=== PATIENT | male | born 1945 | race Caucasian/White ===

== ENCOUNTER → 2018-07-30 | Outpatient (CLI) | payer MEDICARE, OTHER ==
[~2018-07-30] MED LIST: AMLO5TAB2 PO; ASP325T; ASP81CT PO; ATRV10T PO; CARV12.52 PO; CARV3.122; CLOP75TA PO; FURO40TA4 PO; KCL20TCR PO; LISI-594; NITR1PAT25; OMEG-12 PO; RAMI10TA PO; TADA2.5T PO
== END ==
LOC: CARD 10:36
PROVIDERS: ATTEND Internal Medicine Cardiovascular Disease
DX: I25.10 Atherosclerotic heart disease of native coronary artery without angina pectoris (principal); I11.0 Hypertensive heart disease with heart failure; I50.22 Chronic systolic (congestive) heart failure; I65.29 Occlusion and stenosis of unspecified carotid artery; E78.2 Mixed hyperlipidemia

== ENCOUNTER → 2018-08-06 | Outpatient (CLI) | payer MEDICARE, OTHER ==
[~2018-08-06] MED LIST changes: +CATHETER FLUSH 10 ML SYR IV PRN; +REGADENOSON 0.4 MG/5 ML SYR (LEXISCAN) IV ONE
[2018-08-06 09:59] VITALS: BP 159/97
--- NOTE | 2018-08-06 15:29 | STRESS TEST ---
DATE OF SERVICE: 08/06/2018 LEXISCAN MYOVIEW STRESS TEST REPORT Baseline heart rate is 63. Baseline blood pressure 168/89. Baseline EKG is sinus rhythm with no ischemic changes. In summary, the patient was injected with 8.56 mCi of technetium-99 Myoview and the resting images were obtained. Then, the patient was injected with 0.4 mg of Lexiscan followed by 26.7 mCi of technetium-99 Myoview. Throughout the test, there were no EKG changes. The resting and stress images were reviewed and compared in the short axis, horizontal long axis, and vertical long axis views. Review of the images showed diaphragmatic attenuation affecting the quality of the images. There is a fixed defect involving the mid to apical inferolateral and anterolateral wall with no significant ischemia. SSS is 7, SDS 1, TID value 1.0. On the gated images, the left ventricle appeared to be normal size with hypokinesia at the anterior wall and anteroseptum and inferoseptum probably due to the underlying bundle branch block. Calculated ejection fraction is 48%. CONCLUSION: 1. The patient tolerated Lexiscan well. 2. Extracardiac attenuation affecting the quality of the images with fixed defect involving the mid to apical inferolateral and anterolateral wall. 3. Normal left ventricular size with hypokinesia involving the anterior wall, anteroseptum and inferoseptum probably due to the underlying bundle branch block. Calculated ejection fraction is 48%. Job ID: [id number] DocumentID: [id number] Dictated Date: 08/06/2018 14:51:09 Checkman Date: 08/06/2018 15:28:53 Dictated By: JOSÉ LUIS FARR MD
== END ==
LOC: CARD 08:10
PROVIDERS: ATTEND Internal Medicine Cardiovascular Disease
DX: I11.0 Hypertensive heart disease with heart failure (principal); I50.9 Heart failure, unspecified; I25.10 Atherosclerotic heart disease of native coronary artery without angina pectoris; E78.2 Mixed hyperlipidemia
CPT/HCPCS: 78452; 93017

== ENCOUNTER → 2019-10-09 | Outpatient (CLI) | payer MEDICARE, OTHER ==
[~2019-10-09] MED LIST changes: -CATHETER FLUSH 10 ML SYR IV PRN; -REGADENOSON 0.4 MG/5 ML SYR (LEXISCAN) IV ONE
== END ==
LOC: CARD 13:07
PROVIDERS: ATTEND Physician Assistant
DX: I08.3 Combined rheumatic disorders of mitral, aortic and tricuspid valves (principal); I11.0 Hypertensive heart disease with heart failure; I50.22 Chronic systolic (congestive) heart failure; I25.10 Atherosclerotic heart disease of native coronary artery without angina pectoris; I65.23 Occlusion and stenosis of bilateral carotid arteries; E78.2 Mixed hyperlipidemia; Z95.2 Presence of prosthetic heart valve
CPT/HCPCS: 93306

== ENCOUNTER → 2020-10-24 | Outpatient (CLI) | payer MEDICARE, OTHER | LOC: CARD 10:32 | PROVIDERS: ATTEND Internal Medicine Cardiovascular Disease | DX: I25.10 Atherosclerotic heart disease of native coronary artery without angina pectoris (principal); I50.9 Heart failure, unspecified; I08.1 Rheumatic disorders of both mitral and tricuspid valves | CPT/HCPCS: 93306 ==

== ENCOUNTER → 2020-10-26 | Outpatient (CLI) | payer MEDICARE, OTHER ==
[~2020-10-26] VITALS: Ht 177 cm; Wt 98.0 kg
[~2020-10-26] MED LIST changes: +CATHETER FLUSH 10 ML SYR IV PRN; +REGADENOSON 0.4 MG/5 ML SYR (LEXISCAN) IV ONE
[2020-10-26 08:56] VITALS: BP 167/89
--- NOTE | 2020-10-26 12:49 | Cardiology Stress Test Report ---
Stress Test Report Date of Procedure/Referring: Date of Procedure: Oct 26, 2020 PCP José Luis Marquez MD Admitting Physician Deleted Indications: Heart disease Baseline Heart Rate: 66 Baseline Blood Pressure: Blood Pressure Systolic: 167 Blood Pressure Diastolic: 89 Baseline Vitals Vital Signs Date Time Temp Pulse Resp B/P (MAP) Pulse Ox O2 Delivery O2 Flow Rate FiO2 10/26/20 08:56 67 19 167/89 (115) 97 Baseline EKG: Baseline EKG: normal sinus rhythm. Summary After explaining the procedure to the patient, he signed a consent and then brought to the stress nuclear laboratory. Patient received 0.4 mg Lexiscan for stress test, ECG, heart rate and blood pressure were monitored continuously. Resting and stress dose of radio tracer were injected, imaging was acquired and reviewed in short axis, horizontal long axis and vertical long axis views. TID: 1.04 SSS: 9 SDS: 7 EF: 33 1. Patient tolerated Lexiscan well 2. Diaphragmatic attenuation with reversible ischemia involving the whole inferior wall and inferolateral wall and lateral wall 3. Normal left ventricular size, diffuse hypokinesia is 33 percent JOSÉ LUIS MARQUEZ MD Oct 26, 2020 12:49
== END ==
LOC: CARD 07:30
PROVIDERS: ATTEND Internal Medicine Cardiovascular Disease
DX: I25.10 Atherosclerotic heart disease of native coronary artery without angina pectoris (principal); I50.9 Heart failure, unspecified
CPT/HCPCS: 78452; 93017; A9502

== ENCOUNTER 2021-12-28 08:01 | Outpatient (CLI) | payer MEDICARE ==
[~2021-12-28] VITALS: Ht 180.3 cm; Wt 95.5 kg
[~2021-12-28 08:01] MED LIST changes: -CATHETER FLUSH 10 ML SYR IV PRN; -REGADENOSON 0.4 MG/5 ML SYR (LEXISCAN) IV ONE
[2022-01-02] MEDS ORDERED: VITA1CAP PO (15:27)
[2022-01-02] MEDS ORDERED: ATOR10TA66 PO (15:29)
[2022-01-02] MEDS ORDERED: RAMI10CA69 PO (15:29)
[2022-01-02] MEDS ORDERED: CLOP75TA69 PO (15:29)
[2022-01-02] MEDS ORDERED: CARV12.53 PO (15:29)
== END 2022-01-02 15:36 | disposition home or self-care (01) ==
LOC: PREOP 08:01
PROVIDERS: ATTEND Specialist
DX: Z01.818 Encounter for other preprocedural examination (principal)

== ENCOUNTER → 2022-01-11 | Outpatient (CLI) | payer MEDICARE ==
[~2022-01-11] MED LIST changes: +ATOR10TA66 PO; +CARV12.53 PO; +CLOP75TA69 PO; +RAMI10CA69 PO; +VITA1CAP PO
== END | disposition home or self-care (01) ==
LOC: PREOP 07:51
PROVIDERS: ATTEND Specialist
DX: Z01.818 Encounter for other preprocedural examination (principal)

== ENCOUNTER 2022-01-19 12:55 | Day surgery (SDC) | payer MEDICARE ==
[~2022-01-19] VITALS: Ht 180.3 cm; Wt 95.5 kg
[2022-01-19] MEDS ORDERED: LIDOCAINE PF 1% 2 ML VIAL IR PRN (13:00)
[2022-01-19] MEDS ORDERED: POVIDONE (BETADINE) OPHTH SOLN 5% 30 ML OP ONE (13:00)
[2022-01-19] MEDS ORDERED: MOXIFLOXACIN OPHTH SOLN 5 MG/ML 0.3 ML SYRINGE OP ONE (13:00)
[2022-01-19] MEDS ORDERED: TIMOLOL MALEATE 0.5% 5 ML (TIMOPTIC) BTL OU PRN (13:00)
[2022-01-19] MEDS: TETRACAINE 0.5% OPHTH SOLN 4 ML BTL (SINGLE DOSE ONLY) OU PRN ×4 (13:13→13:30)
[2022-01-19] MEDS: TROPICAMIDE 1% OPH SOLN (MYDRIACYL) 15 ML BTL OP SCH ×3 (13:19→13:30)
[2022-01-19] MEDS: PHENYLEPHRINE 10% OPHTH (NEO-SYN) 5 ML BTL OU SCH ×3 (13:20→13:30)
[2022-01-19 13:21] VITALS: BP 147/78
[2022-01-19] MEDS ORDERED: MIDAZOLAM 2 MG/2 ML (VERSED) VIAL ONE (13:33)
--- NOTE | 2022-01-19 13:53 | Ophthalmologist Pre-Op Note ---
Pre-Operative Progress Note H&P Reviewed The H&P was reviewed, patient examined and no changes noted. Date H&P Reviewed: Jan 19, 2022 Time H&P Reviewed: 13:53 Pre-Op Dx Cataract, Left Eye MARGE ROSENBERG MD Jan 19, 2022 13:53
--- NOTE | 2022-01-19 14:14 | Ophthalmology Operative Report ---
Cataract removal/placement IOL PREOPERATIVE DIAGNOSIS: Cataract Left Eye POSTOPERATIVE DIAGNOSIS: Cataract Left Eye PROCEDURE: Cataract removal and placement of posterior chamber implant, left eye SURGEON: Vu Rosenberg ANESTHESIA: Topical with sedation COMPLICATIONS: None ESTIMATED BLOOD LOSS: Minimal DESCRIPTION OF PROCEDURE: After proper informed consent was obtained, the patient, a 76 male, was taken to the Operating Room and the left eye was anesthetized with tetracaine. The left eye was then prepped and draped in the usual manner. A wire lid speculum was placed. A paracentesis was made at the left hand position. Preservative free lidocaine was injected into the anterior chamber followed by viscoelastic. A clear corneal incision was made in the temporal position. A capsulorrhexis was preformed and the central nuclear and cortical material were removed. The posterior capsule was polished and an Alonso 21.0 AU00T0 was placed into the capsular bag. The residual viscoelastic was aspirated and balanced saline solution was injected into the anterior chamber. Moxifloxacin was injected into the anterior chamber. The wound was checked and found to be water tight. The patient tolerated the procedure well without complications. VU ROSENBERG MD Jan 19, 2022 14:13
[2022-01-19 14:16] VITALS: BP 147/78
--- NOTE | 2022-01-19 14:17 | Anesthesia-General Post-Op ---
MAC Patient Condition Mental Status/LOC: Same as Preop Cardiovascular: Satisfactory Nausea/Vomiting: Absent Respiratory: Satisfactory Pain: Controlled Complications: Absent Post Op Complications Complications None Follow Up Care/Instructions Patient Instructions None needed. Anesthesiology Discharge Order Discharge Order Patient is doing well, no complaints, stable vital signs, no apparent adverse anesthesia problems. No complications reported per nursing. DAVID BOSE CRNA Jan 19, 2022 14:17
[2022-01-19] MEDS ORDERED: acetaZOLAMIDE ER 500 MG CAP (DIAMOX SEQUELS) PO ONE (14:30)
== END 2022-01-19 14:18 | disposition home or self-care (01) ==
LOC: SDC 12:55
PROVIDERS: ATTEND Specialist
DX: H25.9 Unspecified age-related cataract (principal)
CPT/HCPCS: 66984; V2632

== ENCOUNTER 2023-01-06 00:05 | Inpatient (IN) | payer MEDICARE ==
[~2023-01-06] VITALS: Ht 180.3 cm; Wt 74.3 kg
[~2023-01-06 00:05] MED LIST changes: +CLOP-31 PO; -CLOP75TA69 PO
[2023-01-06] MEDS ORDERED: ONDANSETRON 4 MG/2 ML (SDV) Z0FRAN IV PRN (23:00)
[2023-01-06] MEDS ORDERED: ACETAMINOPHEN 325 MG TABLET PO PRN (23:00)
[2023-01-06] MEDS ORDERED: MEROPENEM 500 MG in NS (IVPB) 100 ML IV SCH (23:00)
[2023-01-06] MEDS ORDERED: polyethylene glycoL POWDER 17 GM (MIRALAX) PACK PO PRN (23:00)
[2023-01-06] MEDS ORDERED: ANTACID SUSP 30 ML UDC (MYLANTA) PO PRN (23:00)
[2023-01-06] MEDS ORDERED: MELATONIN 3 MG TABLET PO PRN (23:00)
[2023-01-06] MEDS ORDERED: CALCIUM CARBONATE 500 MG (TUMS) TAB.CHEW PO PRN (23:00)
[2023-01-06] MEDS ORDERED: BISACODYL 10 MG SUPP (DULCOLAX) PR PRN (23:00)
[2023-01-06] MEDS ORDERED: ENOXAPARIN 40 MG/0.4 ML (LOVENOX) SYR SC SCH (23:00)
--- OUTSIDE RECORDS SUMMARY | 2023-01-07 00:11 | XMS REPORT ---
Author Author DARIN DAHL Organization Unknown Address [address], [place] [id number] Phone Care Team Providers Care Applications Packager Name Role Phone Xwatchlist TERRI Munguia Attending BRUCE VARNER Erdoc1 Functional Status No Data Found Immunization No Data Found Mental Status No Data Found Results COMPREHENSIVE METABOLIC PANEL - Collect Date/Time: 11/27/2022 06:58 [facility] ID: [id number] [address] [place] [address], [phone] LOINC: Test Value Unit Reference Range Code Code System Flag SODIUM 136 mmol/L 134-148 POTASSIUM 3.7 mmol/L 3.5-5.3 CHLORIDE 103 mmol/L 95-114 CO2 21 mEq/L 22-33 L ANION GAP 16 6-14 H GLUCOSE 103 mg/dL 70-110 BUN 23 mg/dL 5-25 CREATININE 1.71 mg/dL 0.50-1.50 H CALCIUM 8.3 mg/dL 8.3-10.4 GLOBULIN 2.7 g/dL 2.3-3.5 ALKALINE PHOS 85 U/L 35-130 SGOT/AST 17 U/L 2-40 SGPT/ALT 17 U/L 6-45 TOTAL BILI 0.9 mg/dL 0.2-1.2 TOTAL PROTEIN 5.7 g/dL 6.0-8.3 L ALBUMIN 3.0 g/dL 3.6-5.1 L OSMOLALITY 285 280-295 EGFR 39 mL/min/1.73m2 >59 L COVID-19 RAPID - Collect Date/Time: 11/01 06:58 [facility] ID: [id number] [address], [place], [phone] LOINC: Test Value Unit Reference Range Code Code System Flag COVID 19 RAPID Negative CBC WITH AUTO DIFF - Collect Date/Time: 11/27/2022 06:58 [facility] ID: [id number] [address] [place] [address], [phone] LOINC: Test Value Unit Reference Range Code Code System Flag WBC 4.78 K/uL 4.00-11.00 RBC 4.05 M/uL 4.20-5.40 L HEMOGLOBIN 12.2 g/dL 13.1-17.3 L HEMATOCRIT 37.5 % 42.0-52.0 L MCV 92.6 fL 80.0-97.0 MCH 30.1 pg 27.0-31.2 MCHC 32.5 g/dL 32.0-36.0 PLATELETS 111 K/uL 150-400 L RDW 23.3 % 11.6-14.8 H MPV 10.8 fL 9.3-12.9 NEUT# 2.37 K/uL 2.00-6.90 Neut% 49.6 % 37.0-80.0 #LYMPH 1.50 K/uL 0.60-3.40 %LYMPH 31.4 % 10.0-50.0 #MONO 0.6 K/uL 0.0-0.9 %MONO 12.1 % 0.0-12.0 H #EOS 0.3 K/uL 0.0-0.7 %EOS 6.1 % 0.0-7.0 #BASO 0.0 K/uL 0.0-0.2 %BASO 0.60 % 0.00-2.50 IG# 0.01 0.00-0.10 IG% 0.20 0.00-0.50 CBC WITH AUTO DIFF - Collect Date/Time: 11/26/2022 07:00 [facility] ID: [id number] [address] [place] [address], [phone] LOINC: Test Value Unit Reference Range Code Code System Flag WBC 8.99 K/uL 4.00-11.00 RBC 3.94 M/uL 4.20-5.40 L HEMOGLOBIN 11.9 g/dL 13.1-17.3 L HEMATOCRIT 37.4 % 42.0-52.0 L MCV 94.9 fL 80.0-97.0 MCH 30.2 pg 27.0-31.2 MCHC 31.8 g/dL 32.0-36.0 L PLATELETS 97 K/uL 150-400 L RDW 23.6 % 11.6-14.8 H MPV 10.6 fL 9.3-12.9 NEUT# 7.34 K/uL 2.00-6.90 H Neut% 81.7 % 37.0-80.0 H #LYMPH 0.88 K/uL 0.60-3.40 %LYMPH 9.8 % 10.0-50.0 L #MONO 0.7 K/uL 0.0-0.9 %MONO 7.8 % 0.0-12.0 #EOS 0.0 K/uL 0.0-0.7 %EOS 0.3 % 0.0-7.0 #BASO 0.0 K/uL 0.0-0.2 %BASO 0.20 % 0.00-2.50 IG# 0.02 0.00-0.10 IG% 0.20 0.00-0.50 PSA TOTAL - Collect Date/Time: 07:00 [facility] ID: [id number] [address] [place] [address], [phone] LOINC: Test Value Unit Reference Range Code Code System Flag PSA TOTAL 3.6 ng/mL 0.0-4.0 COMPREHENSIVE METABOLIC PANEL - Collect Date/Time: 11/26/2022 07:00 [facility] ID: [id number] [address] [place] [address], [phone] LOINC: Test Value Unit Reference Range Code Code System Flag SODIUM 135 mmol/L 134-148 POTASSIUM 3.7 mmol/L 3.5-5.3 CHLORIDE 101 mmol/L 95-114 CO2 22 mEq/L 22-33 ANION GAP 16 6-14 H GLUCOSE 113 mg/dL 70-110 H BUN 20 mg/dL 5-25 CREATININE 1.78 mg/dL 0.50-1.50 H CALCIUM 8.5 mg/dL 8.3-10.4 GLOBULIN 2.9 g/dL 2.3-3.5 ALKALINE PHOS 88 U/L 35-130 SGOT/AST 22 U/L 2-40 SGPT/ALT 19 U/L 6-45 TOTAL BILI 1.2 mg/dL 0.2-1.2 TOTAL PROTEIN 5.9 g/dL 6.0-8.3 L ALBUMIN 3.0 g/dL 3.6-5.1 L OSMOLALITY 282 280-295 EGFR 37 mL/min/1.73m2 >59 L URINE CULTURE - Collect Date/Time: 11/25 15:21 [facility] ID: [id number] [address] [place] [address], [phone] LOINC: Test Value Unit Reference Range Code Code System Flag FINAL REPORT See Comment URINALYSIS AUTO W/ MICROSCOPIC - Collect Date/Time: 11/25/2022 15:21 [facility] ID: [id number] [address] [place] [address], [phone] LOINC: Test Value Unit Reference Range Code Code System Flag Color Red Colorless-Lt. Yellow A Appear Cloudy Clear A Glucose. Negative Negative Bilirubin Negative Negative Icto N/A Negative A Ketones Negative Negative Sp.Monroe 1.015 1.000-1.030 Blood 3+ Negative A pH 7.0 5-8.5 Protein 3+ Negative A Urobil 0.2 E.U./dL 0.2-1.0 A Nitrite Negative Negative Leukocytes 1+ Negative A U.WBC TNTC A U.RBC TNTC A Bacteria 1+ A Epithelial None A Mucus Negative A Urine Crystals None Seen Ur Casts None Seen Urine Yeast Not Present Urine Volume Sufficient Other See Comment A COMPREHENSIVE METABOLIC PANEL - Collect Date/Time: 11/24/2022 04:50 [facility] ID: [id number] [address] [place] [address], [phone] LOINC: Test Value Unit Reference Range Code Code System Flag SODIUM 137 mmol/L 134-148 POTASSIUM 3.6 mmol/L 3.5-5.3 CHLORIDE 103 mmol/L 95-114 CO2 22 mEq/L 22-33 ANION GAP 16 6-14 H GLUCOSE 100 mg/dL 70-110 BUN 20 mg/dL 5-25 CREATININE 1.76 mg/dL 0.50-1.50 H CALCIUM 8.0 mg/dL 8.3-10.4 L GLOBULIN 2.7 g/dL 2.3-3.5 ALKALINE PHOS 85 U/L 35-130 SGOT/AST 12 U/L 2-40 SGPT/ALT 14 U/L 6-45 TOTAL BILI 0.7 mg/dL 0.2-1.2 TOTAL PROTEIN 5.5 g/dL 6.0-8.3 L ALBUMIN 2.8 g/dL 3.6-5.1 L OSMOLALITY 286 280-295 EGFR 37 mL/min/1.73m2 >59 L CBC WITH AUTO DIFF - Collect Date/Time: 11/24/2022 04:50 [facility] ID: [id number] [address] [place] [address], [phone] LOINC: Test Value Unit Reference Range Code Code System Flag WBC 4.27 K/uL 4.00-11.00 RBC 3.87 M/uL 4.20-5.40 L HEMOGLOBIN 11.6 g/dL 13.1-17.3 L HEMATOCRIT 36.2 % 42.0-52.0 L MCV 93.5 fL 80.0-97.0 MCH 30.0 pg 27.0-31.2 MCHC 32.0 g/dL 32.0-36.0 PLATELETS 111 K/uL 150-400 L RDW 24.1 % 11.6-14.8 H MPV 10.9 fL 9.3-12.9 NEUT# 2.55 K/uL 2.00-6.90 Neut% 59.7 % 37.0-80.0 #LYMPH 0.99 K/uL 0.60-3.40 %LYMPH 23.2 % 10.0-50.0 #MONO 0.5 K/uL 0.0-0.9 %MONO 12.2 % 0.0-12.0 H #EOS 0.2 K/uL 0.0-0.7 %EOS 3.5 % 0.0-7.0 #BASO 0.0 K/uL 0.0-0.2 %BASO 0.90 % 0.00-2.50 IG# 0.02 0.00-0.10 IG% 0.50 0.00-0.50 COMPREHENSIVE METABOLIC PANEL - Collect Date/Time: 11/23/2022 07:00 [facility] ID: [id number] [address] [place] [address], [phone] LOINC: Test Value Unit Reference Range Code Code System Flag SODIUM 138 mmol/L 134-148 POTASSIUM 3.7 mmol/L 3.5-5.3 CHLORIDE 104 mmol/L 95-114 CO2 23 mEq/L 22-33 ANION GAP 15 6-14 H GLUCOSE 98 mg/dL 70-110 BUN 18 mg/dL 5-25 CREATININE 1.85 mg/dL 0.50-1.50 H CALCIUM 8.3 mg/dL 8.3-10.4 GLOBULIN 2.8 g/dL 2.3-3.5 ALKALINE PHOS 92 U/L 35-130 SGOT/AST 12 U/L 2-40 SGPT/ALT 14 U/L 6-45 TOTAL BILI 0.9 mg/dL 0.2-1.2 TOTAL PROTEIN 5.8 g/dL 6.0-8.3 L ALBUMIN 3.0 g/dL 3.6-5.1 L OSMOLALITY 287 280-295 EGFR 35 mL/min/1.73m2 >59 L CBC WITH AUTO DIFF - Collect Date/Time: 11/23/2022 07:00 [facility] ID: [id number] [address] [place] [address], [phone] LOINC: Test Value Unit Reference Range Code Code System Flag WBC 4.77 K/uL 4.00-11.00 RBC 3.97 M/uL 4.20-5.40 L HEMOGLOBIN 12.0 g/dL 13.1-17.3 L HEMATOCRIT 37.4 % 42.0-52.0 L MCV 94.2 fL 80.0-97.0 MCH 30.2 pg 27.0-31.2 MCHC 32.1 g/dL 32.0-36.0 PLATELETS 112 K/uL 150-400 L RDW 24.3 % 11.6-14.8 H MPV ---- 9.3-12.9 NEUT# 3.44 K/uL 2.00-6.90 Neut% 72.2 % 37.0-80.0 #LYMPH 0.75 K/uL 0.60-3.40 %LYMPH 15.7 % 10.0-50.0 #MONO 0.4 K/uL 0.0-0.9 %MONO 9.0 % 0.0-12.0 #EOS 0.1 K/uL 0.0-0.7 %EOS 2.5 % 0.0-7.0 #BASO 0.0 K/uL 0.0-0.2 %BASO 0.60 % 0.00-2.50 IG# 0.00 0.00-0.10 IG% 0.00 0.00-0.50 MYOGLOBIN - Collect Date/Time: 06:31 [facility] ID: [id number] [address] [place] [address], [id number] LOINC: Test Value Unit Reference Range Code Code System Flag Cruz 587.5 ng/ml 1.6-154.9 H CREATINE KINASE (CPK) TOTAL - Collect Da te/Time: 11/22/2022 06:31 [facility] ID: [id number] [address] [place] [address], [phone] LOINC: Test Value Unit Reference Range Code Code System Flag CPK 128 U/L 26-174 COMPREHENSIVE METABOLIC PANEL - Collect Date/Time: 11/22/2022 06:31 [facility] ID: [id number] [address] [place] [address], [phone] LOINC: Test Value Unit Reference Range Code Code System Flag SODIUM 139 mmol/L 134-148 POTASSIUM 3.6 mmol/L 3.5-5.3 CHLORIDE 108 mmol/L 95-114 CO2 20 mEq/L 22-33 L ANION GAP 15 6-14 H GLUCOSE 102 mg/dL 70-110 BUN 19 mg/dL 5-25 CREATININE 1.86 mg/dL 0.50-1.50 H CALCIUM 8.1 mg/dL 8.3-10.4 L GLOBULIN 2.5 g/dL 2.3-3.5 ALKALINE PHOS 78 U/L 35-130 SGOT/AST 13 U/L 2-40 SGPT/ALT 14 U/L 6-45 TOTAL BILI 1.0 mg/dL 0.2-1.2 TOTAL PROTEIN 5.2 g/dL 6.0-8.3 L ALBUMIN 2.7 g/dL 3.6-5.1 L OSMOLALITY 289 280-295 EGFR 35 mL/min/1.73m2 >59 L CBC WITH AUTO DIFF - Collect Date/Time: 11/22/2022 06:31 [facility] ID: [id number] [address], [place], [phone] LOINC: Test Value Unit Reference Range Code Code System Flag WBC 4.84 K/uL 4.00-11.00 RBC 3.51 M/uL 4.20-5.40 L HEMOGLOBIN 10.7 g/dL 13.1-17.3 L HEMATOCRIT 32.7 % 42.0-52.0 L MCV 93.2 fL 80.0-97.0 MCH 30.5 pg 27.0-31.2 MCHC 32.7 g/dL 32.0-36.0 PLATELETS 103 K/uL 150-400 L RDW 24.6 % 11.6-14.8 H MPV 11.4 fL 9.3-12.9 NEUT# 3.21 K/uL 2.00-6.90 Neut% 66.3 % 37.0-80.0 #LYMPH 1.00 K/uL 0.60-3.40 %LYMPH 20.7 % 10.0-50.0 #MONO 0.5 K/uL 0.0-0.9 %MONO 9.3 % 0.0-12.0 #EOS 0.2 K/uL 0.0-0.7 %EOS 3.1 % 0.0-7.0 #BASO 0.0 K/uL 0.0-0.2 %BASO 0.40 % 0.00-2.50 IG# 0.01 0.00-0.10 IG% 0.20 0.00-0.50 CREATINE KINASE (CPK) TOTAL - Collect Da te/Time: 11/21/2022 14:14 [facility] ID: [id number] [address] [place] [address], [phone] LOINC: Test Value Unit Reference Range Code Code System Flag CPK 87 U/L 26-174 LACTIC ACID - Collect Date/Time: 023 14:14 [facility] ID: [id number] [address] [place] [address], [phone] LOINC: Test Value Unit Reference Range Code Code System Flag LACTIC ACID 14.5 mg/dL 4.5-19.8 COMPREHENSIVE METABOLIC PANEL - Collect Date/Time: 11/21/2022 14:14 [facility] ID: [id number] [address] [place] [address], [id number] LOINC: Test Value Unit Reference Range Code Code System Flag SODIUM 139 mmol/L 134-148 POTASSIUM 3.5 mmol/L 3.5-5.3 CHLORIDE 110 mmol/L 95-114 CO2 19 mEq/L 22-33 L ANION GAP 14 6-14 GLUCOSE 152 mg/dL 70-110 H BUN 21 mg/dL 5-25 CREATININE 2.06 mg/dL 0.50-1.50 H CALCIUM 8.3 mg/dL 8.3-10.4 GLOBULIN 2.4 g/dL 2.3-3.5 ALKALINE PHOS 85 U/L 35-130 SGOT/AST 13 U/L 2-40 SGPT/ALT 15 U/L 6-45 TOTAL BILI 1.2 mg/dL 0.2-1.2 TOTAL PROTEIN 5.3 g/dL 6.0-8.3 L ALBUMIN 2.9 g/dL 3.6-5.1 L OSMOLALITY 293 280-295 EGFR 31 mL/min/1.73m2 >59 L BASIC METABOLIC PANEL - Collect Date/Jonathan e: 11/21/2022 05:00 [facility] ID: [id number] [address] [place] [address], [id number] LOINC: Test Value Unit Reference Range Code Code System Flag SODIUM 142 mmol/L 134-148 POTASSIUM 3.4 mmol/L 3.5-5.3 L CHLORIDE 114 mmol/L 95-114 CO2 17 mEq/L 22-33 L GLUCOSE 100 mg/dL 70-110 BUN 20 mg/dL 5-25 CREATININE 2.05 mg/dL 0.50-1.50 H OSMOLALITY 296 280-295 H CALCIUM 8.7 mg/dL 8.3-10.4 ANION GAP 14 6-14 EGFR 31 mL/min/1.73m2 >59 L BNP - Collect Date/Time: 11/21/2022 05:0 0 [facility] ID: [id number] [address] [place] [address], [phone] LOINC: Test Value Unit Reference Range Code Code System Flag BNP 3146.70 pg/ml 0.00-100.00 H CBC WITH AUTO DIFF - Collect Date/Time: 11/21/2022 05:00 [facility] ID: [id number] [address] [place] [address], [id number] LOINC: Test Value Unit Reference Range Code Code System Flag WBC 4.84 K/uL 4.00-11.00 RBC 3.64 M/uL 4.20-5.40 L HEMOGLOBIN 11.1 g/dL 13.1-17.3 L HEMATOCRIT 34.1 % 42.0-52.0 L MCV 93.7 fL 80.0-97.0 MCH 30.5 pg 27.0-31.2 MCHC 32.6 g/dL 32.0-36.0 PLATELETS 93 K/uL 150-400 L RDW 24.8 % 11.6-14.8 H MPV 10.7 fL 9.3-12.9 NEUT# 3.27 K/uL 2.00-6.90 Neut% 67.5 % 37.0-80.0 #LYMPH 0.85 K/uL 0.60-3.40 %LYMPH 17.6 % 10.0-50.0 #MONO 0.6 K/uL 0.0-0.9 %MONO 12.0 % 0.0-12.0 #EOS 0.1 K/uL 0.0-0.7 %EOS 2.3 % 0.0-7.0 #BASO 0.0 K/uL 0.0-0.2 %BASO 0.60 % 0.00-2.50 IG# 0.00 0.00-0.10 IG% 0.00 0.00-0.50 URINE CULTURE - Collect Date/Time: 11/20 19:32 [facility] ID: [id number] [address] [place] [address], [id number] LOINC: Test Value Unit Reference Range Code Code System Flag FINAL REPORT See Comment URINALYSIS AUTO W/ MICROSCOPIC - Collect Date/Time: 11/20/2022 19:32 [facility] ID: [id number] [address] [place] [address], [id number] LOINC: Test Value Unit Reference Range Code Code System Flag Color Yellow Colorless-Lt. Yellow Appear Cloudy Clear A Glucose. Negative Negative Bilirubin Negative Negative Icto N/A Negative A Ketones Negative Negative Sp.Monroe 1.015 1.000-1.030 Blood 2+ Negative A pH 5.5 5-8.5 Protein 2+ Negative A Urobil 0.2 E.U./dL 0.2-1.0 A Nitrite Negative Negative Leukocytes 3+ Negative A U.WBC TNTC A U.RBC 5-10/HPF A Bacteria 3+ A Epithelial None A Mucus Negative A Urine Crystals None Seen Ur Casts None Seen Urine Yeast Not Present Urine Volume Sufficient Other See Comment A LACTIC ACID - Collect Date/Time: 023 17:28 [facility] ID: [id number] [address], [place], [phone] LOINC: Test Value Unit Reference Range Code Code System Flag LACTIC ACID 25.6 mg/dL 4.5-19.8 H BNP - Collect Date/Time: 11/20/2022 17:2 8 [facility] ID: [id number] [address] [place] [address], [id number] 000 LOINC: Test Value Unit Reference Range Code Code System Flag BNP 2880.90 pg/ml 0.00-100.00 H EKG, TRACING ONLY - Collect Date/Time: 0 11/20/2022 16:50 [facility] ID: [id number] [address] [place] [address], [id number] LOINC: Test Value Unit Reference Range Code Code System Flag EKG Complete CARDIAC PANEL (EXP) - Collect Date/Time: 11/20/2022 16:50 [facility] ID: [id number] [address] [place] [address], [id number] LOINC: Test Value Unit Reference Range Code Code System Flag CK 159 U/L 26-174 CKMB 5.6 ng/ml 0.0-9.2 TROPONIN I 0.156 ng/mL 0.000-0.400 MYOGLOBIN 426.1 ng/ml 1.6-154.9 H CARBON MONOXIDE - Collect Date/Time: 16:50 [facility] ID: [id number] [address] [place] [address], [phone] LOINC: Test Value Unit Reference Range Code Code System Flag CARBON MONOXIDE, BLOOD 3.6 % 0.0-3.6 COMPREHENSIVE METABOLIC PANEL - Collect Date/Time: 11/20/2022 16:50 [facility] ID: [id number] [address] [place] [address], [id number] LOINC: Test Value Unit Reference Range Code Code System Flag SODIUM 140 mmol/L 134-148 POTASSIUM 3.5 mmol/L 3.5-5.3 CHLORIDE 112 mmol/L 95-114 CO2 16 mEq/L 22-33 L ANION GAP 16 6-14 H GLUCOSE 120 mg/dL 70-110 H BUN 19 mg/dL 5-25 CREATININE 2.13 mg/dL 0.50-1.50 H CALCIUM 8.9 mg/dL 8.3-10.4 GLOBULIN 3.3 g/dL 2.3-3.5 ALKALINE PHOS 101 U/L 35-130 SGOT/AST 14 U/L 2-40 SGPT/ALT 15 U/L 6-45 TOTAL BILI 2.1 mg/dL 0.2-1.2 H TOTAL PROTEIN 6.8 g/dL 6.0-8.3 ALBUMIN 3.5 g/dL 3.6-5.1 L OSMOLALITY 292 280-295 EGFR 30 mL/min/1.73m2 >59 L CBC WITH AUTO DIFF - Collect Date/Time: 11/20/2022 16:50 [facility] ID: [id number] [address] [facility], [place], [place], [phone] LOINC: Test Value Unit Reference Range Code Code System Flag WBC 5.60 K/uL 4.00-11.00 RBC 3.99 M/uL 4.20-5.40 L HEMOGLOBIN 12.0 g/dL 13.1-17.3 L HEMATOCRIT 37.2 % 42.0-52.0 L MCV 93.2 fL 80.0-97.0 MCH 30.1 pg 27.0-31.2 MCHC 32.3 g/dL 32.0-36.0 PLATELETS 124 K/uL 150-400 L RDW 25.1 % 11.6-14.8 H MPV ---- 9.3-12.9 NEUT# 4.21 K/uL 2.00-6.90 Neut% 75.2 % 37.0-80.0 #LYMPH 0.71 K/uL 0.60-3.40 %LYMPH 12.7 % 10.0-50.0 #MONO 0.6 K/uL 0.0-0.9 %MONO 10.5 % 0.0-12.0 #EOS 0.0 K/uL 0.0-0.7 %EOS 0.5 % 0.0-7.0 #BASO 0.1 K/uL 0.0-0.2 %BASO 0.90 % 0.00-2.50 IG# 0.01 0.00-0.10 IG% 0.20 0.00-0.50 ARTERIAL BLOOD GASES - Collect Date/Time : 11/20/2022 16:47 [facility] ID: [id number] [address] [place] [address], [phone] LOINC: Test Value Unit Reference Range Code Code System Flag pH 7.44 7.35-7.45 pCO2 19 mm/Hg 35-45 L pO2 95 mm/Hg 80-95 HCO3 13 mmol/L 20-31 L BASE EXCESS -11.00 mmol/L 1.80-4.20 L O2 SAT 98 RM AIR 95-100 CT CERVICAL SPINE W/O CONTRAST - Complet ed: 11/20/2022 18:14 LOINC: 59480-0 \DRAo\\PGNo\\MRB2\ [address] [address] ---------NAME--------- NUM VIJAYA SEX AGE ADMIT DISC. XRAY# F/C TYPE MARYLIN Mcnally [id number] M 77 11/20/22 39051 M5 I/P DATE OF : 1945 M/R# [id number] PH#: [phone] 110-1 LOCATION: TRANSCRIBED: 11/21/22 9:[address] CERVICAL SPINE W/O [id number] COMPLETED:11/20/22 18:14 SKS 26915 {SPINE PROCED REASON: Trauma PHYSICIAN: TERRI BARRERA B R A D I O L O G Y R E P O R T [facility] Final Report Patient: DARIN COULTER Time Out: 07:57 Exam(s): CT C SPINE EXAM: CT CERVICAL SPINE INDICATION: Neck injury. TECHNIQUE: Thin axial images through the cervical spine were obtained. Sagittal and coronal images were reformatted and reviewed. FINDINGS: There is a sclerotic curvature of the cervical spine. There are advanced degenerative changes of the atlantoaxial joint. There is disc space narrowing at C5-6 and C6-7. There are some hypertropic changes of the facets bilaterally in the midcervical region. There is no fracture or misalignment. IMPRESSION: 1. Scoliosis with associated degenerative changes of the disc and facets. Patient has a sclerotic curvature of the cervical spine. There are no acute abnormalities seen. 2. I agree with preliminary interpretation. All CT scans use one or more of the following dose optimizing techniques: automated exposure control, mA and/or KvP adjustment based on patient size and exam type, or iterative reconstruction. Interpreted by Brandon Omalley M.D. [facility] Exam Id [id number] CT HEAD-W/O CONTRAST - Completed: 2022 18:14 LOINC: 88276-4 \DRAo\\PGNo\\MRB2\ [address] [address] ---------NAME--------- NUM VIJAYA SEX AGE ADMIT DISC. XRAY# F/C TYPE MARYLIN Mcnally [id number] M 77 11/20/22 98067 M5 I/P DATE OF : 1945 M/R# [id number] #: [id number] 110-1 LOCATION: TRANSCRIBED: 11/21/22 9:[address] HEAD-W/O CONTRAST [id number] COMPLETED:11/20/22 18:14 [facility] [address] {REASON FOR TEST: Altered Mental Status PHYSICIAN: TERRI Taylor R A D I O L O G Y R E P O R T [facility] Final Report Patient: DARIN COULTER Time Out: 07:37 Exam(s): CT HEAD WO Contrast EXAM: CT HEAD WITHOUT CONTRAST INDICATION: Altered mental status. FINDINGS: There is generalized atrophy. There is decreased density in the periventricular white matter consistent with chronic small vessel ischemic change. There are no masses or hemorrhages. There are no extraaxial fluid collections. IMPRESSION: 1. 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 No acute abnormality seen. 2. I agree with preliminary interpretation. All CT scans use one or more of the following dose optimizing techniques: automated exposure control, mA and/or KvP adjustment based on patient size and exam type, or iterative reconstruction. Interpreted by Brandon Omalley M.D. [facility] Exam Id [id number] CT THORACIC SPINE W/O CONTRAST - Complet ed: 11/20/2022 18:14 LOINC: 50065-7 \DRAo\\PGNo\\MRB2\ [address] [address] ---------NAME--------- NUM VIJAYA SEX AGE ADMIT DISC. XRAY# F/C TYPE MARYLIN Mcnally [id number] M 77 11/20/22 89513 M5 I/P DATE OF : 1945 M/R# [id number] #: [id number] 110-1 LOCATION: TRANSCRIBED: 11/21/22 9:[address] THORACIC SPINE W/O [id number] COMPLETED:11/20/22 18:14 S [id number] {SPINE PROCED REASON: Trauma PHYSICIAN: TERRI BARRERA B R A D I O L O G Y R E P O R T [facility] Final Report Patient: DARIN COULTER Time Out: 07:57 Exam(s): CT T SPINE EXAM: CT THORACIC SPINE INDICATION: Back trauma. TECHNIQUE: Thin axial sections through the thoracic spine were obtained. Sagittal and coronal images were reformatted and reviewed. FINDINGS: There is severe spondylosis of the thoracic spine with bridging osteophytes at every level anteriorly. There is no bony spinal stenosis. There are no compression fractures or misalignment. IMPRESSION: 1. Severe spondylosis of the thoracic spine. No acute abnormality seen. 2. I agree with preliminary interpretation. All CT scans use one or more of the following dose optimizing techniques: automated exposure control, mA and/or KvP adjustment based on patient size and exam type, or iterative reconstruction. Interpreted by Brandon Omalley M.D. [facility] Exam Id [id number] XR CHEST SINGLE VIEW - Completed: 2022 18:14 LOINC: 41649-5 \DRAo\\PGNo\\MRB2\ [address] [address] ---------NAME--------- NUM VIJAYA SEX AGE ADMIT DISC. XRAY# F/C TYPE MARYLIN Mcnally [id number] M 77 11/20/22 11374 M5 I/P DATE OF : 1945 M/R# [id number] #: [id number] 110-1 LOCATION: TRANSCRIBED: 11/21/22 9:56 0 XR CHEST SINGLE VIEW [id number] COMPLETED:11/20/22 18:14 [facility] [id number] {REASON FOR CHEST: Cough PHYSICIAN: TERRI BARRERA B R A D I O L O G Y R E P O R T [facility] Final Report Patient: DARIN COULTER Time Out: 07:56 Exam(s): XR CHEST SINGLE VIEW EXAM: XR CHEST SINGLE VIEW INDICATION: Cough. TECHNIQUE: Portable chest 1730. 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 There is cardiomegaly with vascular pulmonary vascular congestion and interstitial edema. IMPRESSION: Congestive heart failure. This appears worse compared to exam dated 10/30/2021. Interpreted by Brandon Omalley M.D. [facility] Exam Id [id number] Social History Type Status Start Date End Date Code Code System Smoking History Former smoker 8990009 SNOMED CT Smoking History Unknown if ever smoked 977634819 SNOMED CT Sex Male Vital Signs Vital Sign Value Unit [place] Value [place] Unit Date/Time Recent/Initial? Code Cod e System Body Mass Index 25.97 kg/m2 11/20/2022 20:30 Most Recent 54440-9 LOINC Body Mass Index 25.97 kg/m2 11/20/2022 16:42 Initial 79909-5 LOINC Systolic Blood Pressure 113 mm[Hg] 11/27/2022 06:20 Most Recent 8480-6 LOINC Diastolic Blood Pressure 82 mm[Hg] 11/27/2022 06:20 Most Recent 8462-4 LOINC Systolic Blood Pressure 104 mm[Hg] 11/20/2022 16:42 Initial 8480-6 LOINC Diastolic Blood Pressure 82 mm[Hg] 11/20/2022 16:42 Initial 8462-4 LOINC Body Surface Area 2.01 m2 11/20/2022 20:30 Most Recent 3140-1 LOINC Body Surface Area 2.01 m2 11/20/2022 16:42 Initial 3140-1 LOINC Height 177.8000 cm 70.00 in 11/20/2022 20:30 Most Recent 8302-2 LOINC Height 177.8000 cm 70.00 in 11/20/2022 16:42 Initial 8302-2 LOINC O2 Saturation 10 0 % 11/27/2022 06:20 Most Recent 36430-7 LOINC O2 Saturation 10 0 % 11/20/2022 16:42 Initial 96099-9 LOINC Inhaled Oxygen Flow Rate 2.00 L/min 11/20/2022 23:56 Most Recent 3151-8 LOINC Inhaled Oxygen Flow Rate 2.00 L/min 11/20/2022 20:30 Initial 3151-8 LOINC Pulse 96.0 /min 0 11/27/2022 06:20 Most Recent 8867-4 LOINC Pulse 99.0 /min 0 11/20/2022 16:42 Initial 8867-4 LOINC Respiration 18 /min 11/27/2022 06:20 Most Recent 9279-1 LOINC Respiration 20 /min 11/20/2022 16:42 Initial 9279-1 LOINC Temperature 36.2 Zee 97.1 F 11/27/2022 06:20 Most Recent 8310-5 LOINC Temperature 36.6 Zee 97.8 F 11/20/2022 16:42 Initial 8310-5 LOINC Weight 73.48 kg 162.00 lbs 11/26/2022 19:39 Most Recent 06024-9 LOINC Weight 82.10 kg 181.00 lbs 11/20/2022 16:42 Initial 11422-3 [facility] Medications Medication Start Date En d Date Route Frequency Dose Code Code System Medication Instructions Home Meds Aspirin 81MG Oral Ta blet, Enteric Coated 10/30/2021 11/27/2022 OR AL Once A Day 81 MILLIGRAMS [id number] RxNorm TAKE 81 MILLIGRAMS ORAL Once A Day Clopidogrel 75MG Ora l Tablet 10/30/2021 11/27/2022 OR AL Once A Day 75 MILLIGRAMS [id number] RxNorm TAKE 75 MILLIGRAMS ORAL Once A Day Coreg 12.5MG Oral Ta blet 10/30/2021 11/27/2022 OR AL Twice A Day 12.5 MILLIGRAMS [id number] RxNorm TAKE 12. 5 MILLIGRAMS ORAL Twice A Day Lipitor 10MG Oral Ta blet 10/30/2021 Unknown ORAL At Bedtime 10 MILLIGRAMS [id number] RxNorm TAKE 10 MILLIGRAMS ORAL At Bedtime Ramipril 10MG Oral C apsule 10/30/2021 Unknown ORAL Once A Day 10 MILLIGRAMS [id number] RxNorm TAKE 10 MILLIGRAMS ORAL Once A Day Tums 750 MG Oral Tab let, Chewable 10/30/2021 11/27/2022 OR AL Once A Day 750 MG [id number] 2 RxNorm TAKE 750 MG ORAL Once A Day amLODIPine Besylate 5MG Oral Tablet 10/30/2021 11/27/2022 OR AL Once A Day 5 MILLIGRAMS [id number] RxNorm TAKE 5 M ILLIGRAMS ORAL Once A Day Acetaminophen 500MG Oral Tablet 11/27/2022 Unknown BY [facility] Three Times A Day 1000 MILLIGRAMS [id number] RxNorm TAKE 100 0 MILLIGRAMS BY MOUTH Three Times A Day Eliquis 5MG Oral Tablet 11/27/2022 Unknown BY MOUTH Twice A Day 2.5 MILLIGRAMS [id number] RxNorm TAKE 2.5 MILLIGRAMS BY MOUTH Twice A Day Carvedilol 6.25MG Or al Tablet 11/27/2022 Unknown BY [facility] Twice A Day 6.25 MILLIGRAMS [id number] RxNorm TAKE 6.2 5 MILLIGRAMS BY MOUTH Twice A Day Finasteride 5MG Oral Tablet 11/27/2022 Unknown BY [facility] Once A Day 5 MILLIGRAMS [id number] RxNorm TAKE 5 M ILLIGRAMS BY MOUTH Once A Day Furosemide 40MG Oral Tablet 11/27/2022 Unknown BY [facility] Once A Day 40 MILLIGRAMS [id number] RxNorm TAKE 40 MILLIGRAMS BY MOUTH Once A Day Haloperidol 1MG Oral Tablet 11/27/2022 Unknown BY [facility] As Needed 1 MILLIGRAMS 3 [id number] RxNorm TAKE 1 M ILLIGRAM BY MOUTH As Needed For Agitation, not to exceed 5mg daily Nitrofurantoin Monoh ydrate/Macrocrystals 100MG Oral Capsule 11/27/2022 Unknown BY MOUTH Twice A Day 100 MILLIGRAMS [id number] RxNorm TAKE 100 MILLIGRAMS BY MOUTH Twice A Day Healthylax Polyethyl shannan Glycol 3350 17GM/1Dose Oral Powder for Solution 11/27/2022 Unknown BY MOUTH Once A Day 17 GRAM [id number] RxNorm TAKE 17 GRAM BY MOUTH Once A Day Tamsulosin HCl 0.4MG Oral Capsule 11/27/2022 Unknown BY [facility] Once A Day 0.4 MILLIGRAMS [id number] RxNorm TAKE 0.4 MILLIGRAMS BY MOUTH Once A Day Assessment You had the following problems: TOTAL SELF-CARE DEFICIT VASCULAR DEMENTIA PAROXYSMAL ATRIAL FIBRILLATION CONGESTIVE HEART FAILURE (DISORDER) URINARY TRACT INFECTION CHRONIC KIDNEY DISEASE CKD STAGE 3B PULMONARY EDEMA PRESENCE OF PROSTHETIC HEART VALVE DARK-BROWN COLORED URINE RECURRENT FALLS DELIRIUM RETENTION OF URINE Assessment: Pt demonstrated a fair response this tx session as evident by increased ambulation distance without rest break. However, pt has significant increase in pain during bed transitions. Pt does not follow cues for log rolling technique to decrease lumbar strain. Pt highly agitated throughout tx session frequently cussing at this INTAKE RN especially when cued for gait correction. Pt exhibits no LOB ambulating w/FWW however exhibits poor safety awareness with AD management during turns increasing risk of falls. Response to Treatment: Patient progressing toward goals well x Progress has been as expected Progress has been slower than expected Progress has been faster than expected Patient refused therapy Session shorter due to health reasons Session short due to time limit Other: Pt Education regarding importance of increasing step height to ensure safe foot clearance when pt wearing shoes. Short Term Goals: 1. Pt will AMB 250ft with FWW and SBA to improve gait stability with FWW support - met 2. Pt will ascend/descend 5 steps with SBA and AD support to improve access to his home. 3. Pt will transfer sit to stand with FWW and mod indep status to improve tramsfer independence. 4. Pt will transfers supine to sit and sit to supine with mod indep status Cruise Counselor Goals: 1. Pt will be able to d/c to SNF rehab for continued self care. Assessment: Pt presents with decreased functional independence with transfer and AMB with use of FWW. Pt has poor safety awareness needing VCs for safety with transfer and AMB with use of FWW. Pt presents with limited stability in narrowed base of support without AD increasing fall risk during gait and transfers without AD. Pt was positioned supine in bed with HOB elevated and body alarm on and call light in reach when PT left the room. RN was notified of pt's functional level and current position. Short Term Goals: 1. Pt will AMB 250ft with FWW and SBA to improve gait stability with FWW support. 2. Pt will ascend/descend 5 steps with SBA and AD support to improve access to his home. 3. Pt will transfer sit to stand with FWW and mod indep status to improve transfer independence. 4. Pt will transfers supine to sit and sit to supine with mod indep status Cruise Counselor Goals: 1. Pt will be able to d/c to SNF rehab for continued self care. 2. 3. 4. Assessment: Pt demonstrated a fair response this tx session as evident by improved gait stability and improved independence with decreased signs of pain when performing Sit to Supine transfer as compared to last tx session. However, pt continues to need assistance for trunk support to complete Supine to Sit transfer due to his pain onset with initiating transfer. Pt has been unable to follow cueing to perform log-rolling technique due to confusion. This INTAKE RN has deferred stair training due to pt high pain levels and plan for pt to go to SNF for short term rehab following d/c from this facility. Response to Treatment: Patient progressing toward goals well x Progress has been as expected Progress h as been slower than expected Progress has been faster than expected Patient refused therapy Session shorter due to health reasons Session short due to time limit Other: Pt Education regarding importance of increasing step height to ensure safe foot clearance when pt wearing shoes. Short Term Goals: 1. Pt will AMB 250ft with FWW and SBA to improve gait stability with FWW support - met 2. Pt will ascend/descend 5 steps with SBA and AD support to improve access to his home. 3. Pt will transfer sit to stand with FWW and mod indep status to improve tramsfer independence. 4. Pt will transfers supine to sit and sit to supine with mod indep status Group Home Goals: 1. Pt will be able to d/c to SNF rehab for continued self care. Assessment: Pt demonstrated a fair response this tx session as evident by improved independence performing bed mobility without onset of increased pain. Pt demonstrates improved gait stability and safety awareness as compared to previous tx sessions. However, pt does not reach back for chair when sitting despite cueing. Response to Treatment: x Patient progressing toward goals well Progress has been as expected Progress has been slower than expected Progress has been faster than expected Patient refused therapy Session shorter due to health reasons Session short due to time limit Other: Short Term Goals: 1. Pt will AMB 250ft with FWW and SBA to improve gait stability with FWW support - met 2. Pt will ascend/descend 5 steps with SBA and AD support to improve access to his home. 3. Pt will transfer sit to stand with FWW and mod indep status to improve transfer independence. 4. Pt will transfers supine to sit and sit to supine with mod indep status - progressing Group Home Goals: 1. Pt will be able to d/c to SNF rehab for continued self care. Hospital Discharge Instructions Should you have any questions prior to discharge, please contact a member of your healthcare team. If you have left the hospital and have any questions, please contact your primary care physician. DIET: REGULAR DIET. Prescriptions: Processed electronically, To pharmacy of choice: [facility] Discharge Diagnosis: UTI, Altered Mental Status, weakness Follow-Up Appointment: 1. Please follow up with Dr. Murray post discharge from intermediate facility. Address: [address] [place] [id number] General Activity: Up and about as tolerated with 1 person assistance Lifting/Weight-Bearing: May lift as tolerated. Bathing: May shower, May tub bathe. Driving: Must be cleared by Primary care doctor. Notify Physician: Fever greater than 101 F (38 C), Pain unrelieved by medication. Nausea and/or vomiting, Persistent nausea, Persistent cough, Chest pain. Adverse reaction to medication, Questions/Uncertainty. Education: Diagnosis-related material: PATIENT PORTAL, ALTERED MENTAL STATUS, UTI, FALL PREVENTION Given to and reviewed with patient. Given to and reviewed with family. Patient's Belongings: Retained at bedside. Health Accessories: Did not bring. Medical Equipment: Did not bring. Personal Belongings: Retained items collected by patient. [facility]: [facility], Private vehicle (Facility Van) Accompanied By: [facility] Staff Member. Pain Control Status/Pain Management: Adequate pain control. Systems Review/Physical Assessment: Afebrile, Orientation AT BASELINE, Skin asymptomatic. Respiratory status asymptomatic, Eating asymptomatic/independent. Drinking asymptomatic/independent, Urine elim. asymptomatic/independent. Bowel elim. asymptomatic/independent, Mobility asymptomatic/independent. Post Discharge Equipment: N/A Wound/Operative Site Care: N/A Return to Work/School: N/A Heart Failure (HF) Review: N/A Acute Myocardial Infarction (AMI) Review: N/A Stroke (STK) Review: N/A Venous Thromboembolism (VTE) Review: N/A Nurse's Notes: 1. Patient to discharge to [facility] on November 27 at 0930. 2. Patient to received PT/OT evaluation and treatment. 3. Schroeder care per facility protocol (placed due to retention 11/25). Please encourage fluids. 4. Patient currently a full code. 5. Patient to use walker for ambulation (until PT clears). Reason For Referral No Data Found Procedures No Data Found Implants No Data Found Problems Problem Start Date Resol genevieve Date Status Code Code System TOTAL SELF-CARE DEFICIT active 68010082 SNOMED-C T VASCULAR DEMENTIA active 130250766 SNOMED-CT PAROXYSMAL ATRIAL FIBRILLATION active 691495592 SNOMED- CT CONGESTIVE HEART FAILURE (DISORDER) active 32314405 SNOMED-C T URINARY TRACT INFECTION active 12061090 SNOMED-C T CHRONIC KIDNEY DISEASE active 333331309 SNOMED- CT CKD STAGE 3B active 567861527 SNOMED-CT PULMONARY EDEMA active 01556559 SNOMED-CT PRESENCE OF PROSTHETIC HEART VALVE active 740993102 SNOMED- CT DARK-BROWN COLORED URINE active 208177343211886 S NOMED-CT RECURRENT FALLS active 253097072 SNOMED-CT DELIRIUM active 7650547 SNOMED-CT RETENTION OF URINE active 599450687 SNOMED-CT HYPOXEMIA 11/21/2022 resolved 054872729 SNOMED-CT UPPER RESPIRATORY DISEASE, ACUTE 10/30/2021 resolved 276993241 SNOMED-CT CHRONIC KIDNEY DISEASE STAGE 3 10/30/2021 resolved 835782515 SNOME D- CT HTN 10/30/2021 resolved 96189564 SNOMED-CT GOUT 10/30/2021 resolved 40375203 SNOMED-CT 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 10/30/2021 resolved 321019355 SNOMED-CT MIXED HYPERLIPIDEMIA 0 10/30/2021 resolved 807630643 SNOME D-CT HISTORY OF COVID-19 resolved [id number] SNOMED-CT PREDIABETES 10/30/2021 resolved 055749029 SNOMED-CT OSTEOARTHRITIS 022 resolved 344812216 SNOME D-CT ACUTE COVID-19 023 resolved 5775259373 SNOM ED-CT ACUTE BRONCHITIS 10/30 resolved 52508455 SNOMED -CT Allergies and Adverse Reactions Allergy Substance Reaction Severity Start Date Concern Status Code Code System No Known Drug Allergies Active 482912668 SNOMED- CT Plan of Treatment MRI BRAIN W/O CONTRAST 12/19/2022 PT OP THERAPY TREATMENT 10/31/2022 PT OP THERAPY TREATMENT 10/26/2022 PT OP THERAPY TREATMENT 10/22/2022 PT OP INITIAL EVALUATION 10/04/2022 Plan: Continue with POC to improve independence and safety during functional mobility. Frequency: BID M-F for 7 to 10 tx in 5 days time Duration: until d/c or all goals met Plan: PT has concern with home d/c due to limitation in cognitive status and limited safety awareness limited ADL function. PT recommends d/c to SNF rehab for continued self care and rehab. Pt would benefit from skilled inpatient PT services while in the hospital to address decline in functional mobility and improve transfer and gait safety with FWW support. PT POC: gait, transfers, and balance training. Frequency: BID M-F for 7 to 10 tx in 5 days time Duration: until d/c or all goals met Treatment: PT EVAL [id number], gait training x1 Consent: x Patient agrees to treatment x Patient cleared for eval by RN Patient / family agree to goals Plan: Continue with POC to improve independence and safety during functional mobility. Frequency: BID M- F for 7 to 10 tx in 5 days time Duration: until d/c or all goals met Plan: Continue with POC to improve independence and safety during functional mobility. Recommend discharge to SNF once medically stable. Frequency: BID M-F for 7 to 10 tx in 5 days time Duration: until d/c or all goals met Plan: Plan to con't OT POC to address deficits listed above. Plan 1. Self-care deficit/Recurrent Falls - PT and OT consulted, appreciate their assistance and recommendations. - Disch arging to [facility] this morning. 2. Cognitive impairment - Suspected vascular dementia - Have discussed extensively with patient's extended family that he will need closer monitoring and likely assistance with ADL's and IADL's. - Medication noncompliance has been occurring secondary to cognitive impairment. 3. Delirium - Suspect hospital-induced delirium, exacerbated by his underlying dementia. - 1g haloperidol PRN for agitation, maximum of 5g/daily. 4. Urine retention - Schroeder catheter was forcefully removed by the patient on 11/25 during a period of confusion. It was replaced and he has continued to have adequate urine output. - Suspect BPH is contributing. Continue Tamsulosin 0.4mg and Finasteride 5mg PO daily. - Will attempt another trial without catheter after there has been sufficient bladder rest. 5. Paroxysmal afib - [id number] score of 4 - Anticoagulate with eliquis, renally dosed. 6. CHF - Continue oral furosemide. - Carvedilol 6.25mg BID, monitor for hypotension. 7. UTI - Continue nitrofurantoin for a total of 10 days. 8. Dark urine - Resolved. 9. CKD3B - Renally dose medications. - Baseline creatinine around 2.0. - Follows with [facility]. Dispo: Discharge to [facility]. Follow-up in clinic in 7-10 days. Medications given this visit: Ordered & Completed Meds Table Ordered Medication Start Date/Time Dosage Route Frequency Status NORMAL SALINE 1000ML IV BAG 0.9 % 11/20/2022 17:35 INTRAVENOUS X1 completed FENTANYL INJ 50MCG/ML 1 ML VIAL 11/20/2022 17:35 25 MCG IV PUSH X1 completed ORPHENADRINE 60 MG/2ML (NORFLEX) VIAL 11/20/2022 17:53 30 MG IV PUSH X1 completed FENTANYL INJ 50MCG/ML 1 ML VIAL 11/20/2022 18:06 50 MCG IV PUSH X1 completed FUROSEMIDE VIAL 40 MG (LASIX VIAL) 11/20/2022 19:07 40 MG IV PUSH X1 completed APIXABAN TAB 5 MG (ELIQUIS) 11/20/2022 19:08 2.5 MG ORAL X1 completed CARVEDILOL TAB 6.25 MG (COREG) 11/20/2022 19:08 6.25 MG ORAL X1 completed Ceftriaxone/NS IVPB : 1GM/50ML 11/20/2022 20:31 100 ml/hr IV PIGGYBACK DAILY completed PANTOPRAZOLE VIAL 40 MG (PROTONIX IV) 11/20/2022 19:14 40 MG IV PUSH DAILY completed CARVEDILOL TAB 6.25 MG (COREG) 11/21/2022 08:00 6.25 MG ORAL BID active APIXABAN TAB 5 MG (ELIQUIS) 11/21/2022 08:00 2.5 MG ORAL BID active FUROSEMIDE TAB 40 MG (LASIX) 11/21/2022 08:00 40 MG ORAL DAILY active CEFTRIAXONE PREMIX IV BAG 1 GM/50ML 11/21/2022 09:02 100 ml/hr INTRAVENOUS DAILY completed FUROSEMIDE VIAL 40 MG (LASIX VIAL) 11/21/2022 09:03 40 MG IV PUSH X1 completed SIMVASTATIN TAB 40 MG (ZOCOR) 11/21/2022 09:04 40 MG ORAL QHS completed POTASSIUM CHLORIDE TAB 20 MEQ (K-DUR) 11/21/2022 09:30 40 MEQ ORAL X1 completed FUROSEMIDE VIAL 40 MG (LASIX VIAL) 11/22/2022 08:57 40 MG IV PUSH DAILY completed ACETAMINOPHEN 500 MG TAB (TYLENOL) 11/22/2022 10:48 1000 MG ORAL TID active PEG POWDER UD (MIRALAX 17GM UNIT DOSE) 11/22/2022 17:49 17 GM ORAL DAILY active TAMSULOSIN CAP 0.4 MG (FLOMAX) 11/23/2022 14:54 0.4 MG ORAL QPM completed TAMSULOSIN CAP 0.4 MG (FLOMAX) 11/23/2022 15:30 0.4 MG ORAL DAILY active LORAZEPAM VIAL 2 MG/ML (ATIVAN VIAL) 11/24/2022 15:15 0.5 MG IM OPTIONS X1 completed LORAZEPAM VIAL 2 MG/ML (ATIVAN VIAL) 11/24/2022 15:46 0.5 MG IM OPTIONS X1 completed HALOPERIDOL 5 MG/ML (HALDOL 1CC VIAL) 11/24/2022 22:59 5 MG IM OPTIONS DAILY completed LORAZEPAM VIAL 2 MG/ML (ATIVAN VIAL) 11/24/2022 23:00 0.5 MG IM OPTIONS PRN Q4H completed HALOPERIDOL 5 MG/ML (HALDOL 1CC VIAL) 11/24/2022 23:22 5 MG IM OPTIONS X1 completed FINASTERIDE TAB 5 MG (PROSCAR) 11/25/2022 09:03 5 MG ORAL DAILY active LORAZEPAM VIAL 2 MG/ML (ATIVAN VIAL) 11/25/2022 09:38 1 MG IM OPTIONS X1 completed HALOPERIDOL 5 MG/ML (HALDOL 1CC VIAL) 11/25/2022 09:38 5 MG IM OPTIONS PRN X1 active CEFTRIAXONE PREMIX IV BAG 1 GM/50ML 11/25/2022 17:00 100 ml/hr INTRAVENOUS X1 completed HALOPERIDOL TAB 1 MG (HALDOL) 11/26/2022 10:00 1 MG ORAL PRN active MACROBID CAP 100 MG (NITROFURANTOIN-BID) 11/26/2022 10:51 100 MG ORAL BID active Discharge Medications: Discharge Medications Aspirin 81MG Oral Tablet, Enteric Coated Clopidogrel 75MG Oral Tablet Coreg 12.5MG Oral Tablet Lipitor 10MG Oral Tablet Ramipril 10MG Oral Capsule Tums 750 MG Oral Tablet, Chewable amLODIPine Besylate 5MG Oral Tablet Encounters No Data Found Goals No Data Found Health Concerns Section No Data Found Personal Care Team Section Performer Name Performer Role Active Date Inactive Date Discharge Summary Notes [facility] SONG Funmilayo 11/29/2022 18:42 All Demographics Patient Name Age Sex Visit Number Admission Date/Time Attending Physician Date of Service Room and Bed Emergency Contact MARYLIN DARIN Mcnally 1945 77 years Male [id number] 11/20/2022 20:45 PETROS MURRAY 11/20/2022 110-1 11/27/2022 08:32 Discharge Date: 11/27/22 Reason for Admission: Total self- care deficit, vascular dementia Final Diagnosis: Total self-care deficit, vascular dementia, CHF, UTI Problem List Presence of prosthetic heart valve Total self-care deficit Vascular dementia Paroxysmal atrial fibrillation Congestive heart failure (disorder) Urinary tract infection Chronic kidney disease CKD stage 3B Pulmonary edema Dark-brown colored urine Recurrent falls Delirium Retention of urine Attending Physician: Petros Murray MD Primary Care Physician: Petros Murray MD History of Present Illness Darin Coulter is a 77 year old male with a history of recently diagnosed cognitive impairment/suspected dementia, CKD3B, CAD, and CHF who presented to the emergency room with concerns for recurrent falls and self care deficit. Mr. Coulter currently lives alone and does not have many close family members. We have been evaluating him for possible dementia in the outpatient setting for the past few weeks. Mr. Coulter's SLUMS and MMSE were concerning for cognitive impairment and/or dementia. Mr. Coulter's [id number] and his ex- have been checking in on him more and have found that his gas was turned off at his home, he was not bathing himself, and it appears that many of his bills have gone unpaid unintentionally. He has been using a kerosene heater to heat his home. EMS was called due to concerns for him having recurrent falls and a gas odor in his home. Mr. Coulter did not sustain any injuries or hit his head during these falls. His home was also noted to be in poor condition. It also appears that Mr. Coulter has not been taking his medications. He does have a complicated past medical history and was supposed to be taking dual anti-platelet therapy. Evaluation in the ER was concerning for generalized weakness, fluid overload, and atrial fibrillation without RVR. CT head negative for acute process but consistent with chronic small vessel ischemic disease and atrophy. The decision was made to admit the patient for further cares. Hospital Course Darin Coulter presented to the ER on 11/20/22 via EMS after falling at home. He as found to be using a kerosene heater at home. Carbon monoxide levels were normal. ER workup was significant for fluid overload from CHF, as well as a UTI. Patient was also noted to be a poor historian. He had been recently diagnosed with suspected vascular dementia with cognitive impairment prior to his admission. Darin was noted to have urinary retention and a Schroeder Catheter was placed. A trial without catheter was attempted and he was unable to void on his own despite being started on tamsulosin and finasteride. During his hospitalization, Darin would have intermittent episodes of delirium and would sometimes get agitated with staff, at times kicking or swinging at them. Attempts at redirection were unsuccessful. Do to concern for potential harm to himself and others, the patient was given IM haloperidol and Ativan. He was started on oral Haloperidol as needed for agitation and did well with this. Darin did forcefully remove his catheter on 11/25 during an episode of confusion. This was replaced as he was still unable to void on his own afterwards. Darin made progress with PT and OT but still required further rehabilitation. Patient was discharged to [facility] on 11/27. Patient' s extended family were notified of the plan of care. Lab Results: This Visit Test Results Units Reference Range Ordered Collected Status WBC 4.78 K/uL 4.00-11.00 11/27/2022 00:00 11/27/2022 06:58 final RBC 4.05 L M/uL 4.20-5.40 11/27/2022 00:00 023 06:58 final HEMOGLOBIN 12.2 L g/dL 13.1-17.3 11/27/2022 00:00 11/27/2022 06:58 final HEMATOCRIT 37.5 L % 42.0-52.0 11/27/2022 00:00 11/27/2022 06:58 final MCV 92.6 fL 80.0-97.0 11/27/2022 00:00 11/27/2022 06:58 final MCH 30.1 pg 27.0-31.2 11/27/2022 00:00 11/27/2022 06:58 final MCHC 32.5 g/dL 32.0-36.0 11/27/2022 00:00 11/27/2022 06:58 final PLATELETS 111 L K/uL 150-400 11/27/2022 00:00 11/27/2022 06:58 final RDW 23.3 H % 11.6-14.8 11/27/2022 00:00 11/27/2022 06:58 final MPV 10.8 fL 9.3-12.9 11/27/2022 00:00 11/27/2022 06:58 final NEUT# 2.37 K/uL 2.00-6.90 11/27/2022 00:00 11/27/2022 06:58 final Neut% 49.6 % 37.0- 80.0 11/27/2022 00:00 11/27/2022 06:58 final #LYMPH 1.5 K/uL 0.60-3.40 11/27/2022 00:00 11/27/2022 06:58 final %LYMPH 31.4 % 10.0-50.0 11/27/2022 00:00 11/27/2022 06:58 final #MONO 0.6 K/uL 0.0-0.9 11/27/2022 00:00 11/27/2022 06:58 final %MONO 12.1 H % 0.0-12.0 11/27/2022 00:00 11/27/2022 06:58 final #EOS 0.3 K/uL 0.0-0.7 11/27/2022 00:00 11/27/2022 06:58 final %EOS 6.1 % 0.0-7.0 00:00 11/27/2022 06:58 final #BASO 0 K/uL 0.0-0.2 11/27/2022 00:00 11/27/2022 06:58 final %BASO 0.6 % 0.00-2.50 11/27/2022 00:00 11/27/2022 06:58 final IG# 0.01 0.00-0.10 11/27/2022 00:00 11/27/2022 06:58 final IG% 0.2 0.00- 0.50 11/27/2022 00:00 11/27/2022 06:58 final SODIUM 136 mmol/L 134-148 11/27/2022 00:00 11/27/2022 06:58 final POTASSIUM 3.7 mmol/L 3.5-5.3 11/27/2022 00:00 11/27/2022 06:58 final CHLORIDE 103 mmol/L 95-114 11/27/2022 00:00 11/27/2022 06:58 final CO2 21 L mEq/L 22-33 11/27/2022 00:00 11/27/2022 06:58 final ANION GAP 16 H 6-14 11/27/2022 00:00 11/27/2022 06:58 final GLUCOSE 103 mg/dL 70-110 11/27/2022 00:00 11/27/2022 06:58 final BUN 23 mg/dL 5-25 11/27/2022 00:00 11/27/2022 06:58 final CREATININE 1.71 H mg/dL 0.50-1.50 11/27/2022 00:00 11/27/2022 06:58 final CALCIUM 8.3 mg/dL 8.3-10.4 11/27/2022 00:00 11/27/2022 06:58 final GLOBULIN 2.7 g/dL 2.3-3.5 11/27/2022 00:00 11/27/2022 06:58 final ALKALINE PHOS 85 U/L 35-130 11/27/2022 00:00 11/27/2022 06:58 final SGOT/AST 17 U/L 2-40 11/27/2022 00:00 11/27/2022 06:58 final SGPT/ALT 17 U/L 6-45 11/27/2022 00:00 11/27/2022 06:58 final TOTAL BILI 0.9 mg/dL 0.2-1.2 11/27/2022 00:00 11/27/2022 06:58 final TOTAL PROTEIN 5.7 L g/dL 6.0-8.3 11/27/2022 00:00 11/27/2022 06:58 final ALBUMIN 3 L g/dL 3.6-5.1 11/27/2022 00:00 11/27/2022 06:58 final OSMOLALITY 285 280-295 11/27/2022 00:00 11/27/2022 06:58 final EGFR 39 L mL/min/1.73m2 >59 11/27/2022 00:00 11/27/2022 06:58 final COVID 19 RAPID Negative 11/27/2022 08:00 11/27/2022 06:58 final WBC 8.99 K/uL 4.00-11.00 11/26/2022 00:00 11/26/2022 07:00 final RBC 3.94 L M/uL 4.20-5.40 11/26/2022 00:00 11/26/2022 07:00 final HEMOGLOBIN 11.9 L g/dL 13.1- 17.3 11/26/2022 00:00 11/26/2022 07:00 final HEMATOCRIT 37.4 L % 42.0-52.0 11/26/2022 00:00 11/26/2022 07:00 final MCV 94.9 fL 80.0-97.0 11/26/2022 00:00 11/26/2022 07:00 final MCH 30.2 pg 27.0-31.2 11/26/2022 00:00 11/26/2022 07:00 final MCHC 31.8 L g/dL 32.0-36.0 11/26/2022 00:00 11/26/2022 07:00 final PLATELETS 97 L K/uL 150-400 11/26/2022 00:00 11/26/2022 07:00 final RDW 23.6 H % 11.6-14.8 11/26/2022 00:00 11/26/2022 07:00 final MPV 10.6 fL 9.3-12.9 11/26/2022 00:00 11/26/2022 07:00 final NEUT# 7.34 H K/uL 2.00-6.90 11/26/2022 00:00 11/26/2022 07:00 final Neut% 81.7 H % 37.0-80.0 11/26/2022 00:00 11/26/2022 07:00 final #LYMPH 0.88 K/uL 0.60-3.40 11/26/2022 00:00 11/26/2022 07:00 final %LYMPH 9.8 L % 10.0-50.0 11/26/2022 00:00 11/26/2022 07:00 final #MONO 0.7 K/uL 0.0-0.9 11/26/2022 00:00 11/26/2022 07:00 final %MONO 7.8 % 0.0- 12.0 11/26/2022 00:00 11/26/2022 07:00 final #EOS 0 K/uL 0.0-0.7 11/26/2022 00:00 11/26/2022 07:00 final %EOS 0.3 % 0.0-7.0 11/26/2022 00:00 11/26/2022 07:00 final #BASO 0 K/uL 0.0-0.2 11/26/2022 00:00 11/26/2022 07:00 final %BASO 0.2 % 0.00-2.50 11/26/2022 00:00 11/26/2022 07:00 final IG# 0.02 0.00-0.10 11/26/2022 00:00 11/26/2022 07:00 final IG% 0.2 0.00-0.50 11/26/2022 00:00 11/26/2022 07:00 final SODIUM 135 mmol/L 134-148 11/26/2022 00:00 11/26/2022 07:00 final POTASSIUM 3.7 mmol/L 3.5-5.3 11/26/2022 00:00 11/26/2022 07:00 final CHLORIDE 101 mmol/L 95-114 11/26/2022 00:00 11/26/2022 07:00 final CO2 22 mEq/L 22-33 11/26/2022 00:00 11/26/2022 07:00 final ANION GAP 16 H 6-14 11/26/2022 00:00 11/26/2022 07:00 final GLUCOSE 113 H mg/dL 70-110 11/26/2022 00:00 11/26/2022 07:00 final BUN 20 mg/dL 5-25 11/26/2022 00:00 11/26/2022 07:00 final CREATININE 1.78 H mg/dL 0.50-1.50 11/26/2022 00:00 11/26/2022 07:00 final CALCIUM 8.5 mg/dL 8.3-10.4 11/26/2022 00:00 11/26/2022 07:00 final GLOBULIN 2.9 g/dL 2.3-3.5 11/26/2022 00:00 11/26/2022 07:00 final ALKALINE PHOS 88 U/L 35-130 11/26/2022 00:00 11/26/2022 07:00 final SGOT/AST 22 U/L 2-40 11/26/2022 00:00 11/26/2022 07:00 final SGPT/ALT 19 U/L 6-45 11/26/2022 00:00 11/26/2022 07:00 final TOTAL BILI 1.2 mg/dL 0.2-1.2 11/26/2022 00:00 11/26/2022 07:00 final TOTAL PROTEIN 5.9 L g/dL 6.0-8.3 11/26/2022 00:00 11/26/2022 07:00 final ALBUMIN 3 L g/dL 3.6-5.1 11/26/2022 00:00 11/26/2022 07:00 final OSMOLALITY 282 280-295 11/26/2022 00:00 11/26/2022 07:00 final EGFR 37 L mL/min/1.73m2 >59 11/26/2022 00:00 11/26/2022 07:00 final PSA TOTAL 3.6 ng/mL 0.0-4.0 11/26/2022 00:00 11/26/2022 07:00 final Color Red A Colorless-Lt. Yellow 11/25/2022 11:36 11/25/2022 15:21 final Appear Cloudy A Clear 11/25/2022 11:36 11/25/2022 15:21 final Glucose. Negative Negative 11/25/2022 11:36 11/25/2022 15:21 final Bilirubin Negative Negative 11/25/2022 11:36 11/25/2022 15:21 final Icto N/A A Negative 11/25/2022 11:36 11/25/2022 15:21 final Ketones Negative Negative 11/25/2022 11:36 11/25/2022 15:21 final Sp.[place] 1.015 1.000-1.030 11/25/2022 11:36 11/25/2022 15:21 final Blood 3+ A Negative 11/25/2022 11:36 11/25/2022 15:21 final pH 7 5-8.5 11/25/2022 11:36 11/25/2022 15:21 final Protein 3+ A Negative 11/25/2022 11:36 11/25/2022 15:21 final Urobil 0.2 E.U./dL A 0.2-1.0 11/25/2022 11:36 11/25/2022 15:21 final Nitrite Negative Negative 11/25/2022 11:36 11/25/2022 15:21 final Leukocytes 1+ A Negative 11/25/2022 11:36 11/25/2022 15:21 final U.WBC TNTC A 11/25/2022 11:36 11/25/2022 15:21 final U.RBC TNTC A 11/25/2022 11:36 11/25/2022 15:21 final Bacteria 1+ A 11/25/2022 11:36 11/25/2022 15:21 final Epithelial None A 11/25/2022 11:36 11/25/2022 15:21 final Mucus Negative A 11/25/2022 11:36 11/25/2022 15:21 final Urine Crystals None Seen 11/25/2022 11:36 11/25/2022 15:21 final Ur Casts None Seen 11/25/2022 11:36 11/25/2022 15:21 final Urine Yeast Not Present 11/25/2022 11:36 11/25/2022 15:21 final Urine Volume Sufficient 11/25/2022 11:36 11/25/2022 15:21 final Other See Comment A 11/25/2022 11:36 11/25/2022 15:21 final Prelim Report 11/25/2022 15:54 11/25/2022 15:21 registered WBC 4.27 K/uL 4.00-11.00 11/24/2022 05:00 11/24/2022 04:50 final RBC 3.87 L M/uL 4.20-5.40 11/24/2022 05:00 11/24/2022 04:50 final HEMOGLOBIN 11.6 L g/dL 13.1-17.3 11/24/2022 05:00 11/24/2022 04:50 final HEMATOCRIT 36.2 L % 42.0-52.0 11/24/2022 05:00 11/24/2022 04:50 final MCV 93.5 fL 80.0-97.0 11/24/2022 05:00 11/24/2022 04:50 final MCH 30 pg 27.0-31.2 11/24/2022 05:00 11/24/2022 04:50 final MCHC 32 g/dL 32.0-36.0 11/24/2022 05:00 11/24/2022 04:50 final PLATELETS 111 L K/uL 150-400 11/24/2022 05:00 11/24/2022 04:50 final RDW 24.1 H % 11.6-14.8 11/24/2022 05:00 11/24/2022 04:50 final MPV 10.9 fL 9.3-12.9 11/24/2022 05:00 11/24/2022 04:50 final NEUT# 2.55 K/uL 2.00-6.90 11/24/2022 05:00 11/24/2022 04:50 final Neut% 59.7 % 37.0- 80.0 11/24/2022 05:00 11/24/2022 04:50 final #LYMPH 0.99 K/uL 0.60-3.40 11/24/2022 05:00 11/24/2022 04:50 final %LYMPH 23.2 % 10.0-50.0 11/24/2022 05:00 11/24/2022 04:50 final #MONO 0.5 K/uL 0.0-0.9 11/24/2022 05:00 11/24/2022 04:50 final %MONO 12.2 H % 0.0-12.0 11/24/2022 05:00 11/24/2022 04:50 final #EOS 0.2 K/uL 0.0-0.7 11/24/2022 05:00 11/24/2022 04:50 final %EOS 3.5 % 0.0-7.0 11/24/2022 05:00 11/24/2022 04:50 final #BASO 0 K/uL 0.0-0.2 11/24/2022 05:00 0 11/24/2022 04:50 final %BASO 0.9 % 0.00-2.50 11/24/2022 05:00 11/24/2022 04:50 final IG# 0.02 0.00-0.10 11/24/2022 05:00 11/24/2022 04:50 final IG% 0.5 0.00- 0.50 11/24/2022 05:00 11/24/2022 04:50 final SODIUM 137 mmol/L 134-148 11/24/2022 05:00 11/24/2022 04:50 final POTASSIUM 3.6 mmol/L 3.5-5.3 11/24/2022 05:00 11/24/2022 04:50 final CHLORIDE 103 mmol/L 95-114 11/24/2022 05:00 11/24/2022 04:50 final CO2 22 mEq/L 22-33 11/24/2022 05:00 11/24/2022 04:50 final ANION GAP 16 H 6-14 11/24/2022 05:00 11/24/2022 04:50 final GLUCOSE 100 mg/dL 70-110 11/24/2022 05:00 11/24/2022 04:50 final BUN 20 mg/dL 5-25 05:00 11/24/2022 04:50 final CREATININE 1.76 H mg/dL 0.50-1.50 11/24/2022 05:00 11/24/2022 04:50 final CALCIUM 8 L mg/dL 8.3-10.4 11/24/2022 05:00 11/24/2022 04:50 final GLOBULIN 2.7 g/dL 2.3-3.5 11/24/2022 05:00 11/24/2022 04:50 final ALKALINE PHOS 85 U/L 35-130 11/24/2022 05:00 11/24/2022 04:50 final SGOT/AST 12 U/L 2-40 11/24/2022 05:00 11/24/2022 04:50 final SGPT/ALT 14 U/L 6-45 11/24/2022 05:00 11/24/2022 04:50 final TOTAL BILI 0.7 mg/dL 0.2-1.2 11/24/2022 05:00 11/24/2022 04:50 final TOTAL PROTEIN 5.5 L g/dL 6.0-8.3 11/24/2022 05:00 11/24/2022 04:50 final ALBUMIN 2.8 L g/dL 3.6-5.1 05:00 11/24/2022 04:50 final OSMOLALITY 286 280-295 11/24/2022 05:00 11/24/2022 04:50 final EGFR 37 L mL/min/1.73m2 >59 11/24/2022 05:00 11/24/2022 04:50 final WBC 4.77 K/uL 4.00-11.00 11/23/2022 00:00 11/23/2022 07:00 final RBC 3.97 L M/uL 4.20-5.40 11/23/2022 00:00 11/23/2022 07:00 final HEMOGLOBIN 12 L g/dL 13.1-17.3 11/23/2022 00:00 11/23/2022 07:00 final HEMATOCRIT 37.4 L % 42.0-52.0 11/23/2022 00:00 11/23/2022 07:00 final MCV 94.2 fL 80.0-97.0 11/23/2022 00:00 11/23/2022 07:00 final MCH 30.2 pg 27.0-31.2 11/23/2022 00:00 11/23/2022 07:00 final MCHC 32.1 g/dL 32.0-36.0 11/23/2022 00:00 11/23/2022 07:00 final PLATELETS 112 L K/uL 150-400 11/23/2022 00:00 11/23/2022 07:00 final RDW 24.3 H % 11.6-14.8 11/23/2022 00:00 11/23/2022 07:00 final MPV ---- 9.3- 12.9 11/23/2022 00:00 11/23/2022 07:00 final NEUT# 3.44 K/uL 2.00-6.90 11/23/2022 00:00 11/23/2022 07:00 final Neut% 72.2 % 37.0-80.0 11/23/2022 00:00 11/23/2022 07:00 final #LYMPH 0.75 K/uL 0.60-3.40 11/23/2022 00:00 11/23/2022 07 :00 final %LYMPH 15.7 % 10.0-50.0 11/23/2022 00:00 11/23/2022 07:00 final #MONO 0.4 K/uL 0.0-0.9 11/23/2022 00:00 11/23/2022 07:00 final %MONO 9 % 0.0-12.0 11/23/2022 00:00 11/23/2022 07:00 final #EOS 0.1 K/uL 0.0-0.7 11/23/2022 00:00 11/23/2022 07:00 final %EOS 2.5 % 0.0-7.0 11/23/2022 00:00 11/23/2022 07:00 final #BASO 0 K/uL 0.0-0.2 11/23/2022 00:00 11/23/2022 07:00 final %BASO 0.6 % 0.00-2.50 11/23/2022 00:00 11/23/2022 07:00 final IG# 0 0.00-0.10 11/23/2022 00:00 11/23/2022 07:00 final IG% 0 0.00-0.50 11/23/2022 00:00 11/23/2022 07:00 final SODIUM 138 mmol/L 134-148 11/23/2022 00:00 11/23/2022 07:00 final POTASSIUM 3.7 mmol/L 3.5-5.3 11/23/2022 00:00 11/23/2022 07:00 final CHLORIDE 104 mmol/L 95-114 11/23/2022 00:00 11/23/2022 07:00 final CO2 23 mEq/L 22-33 11/23/2022 00:00 11/23/2022 07:00 final ANION GAP 15 H 6-14 11/23/2022 00:00 11/23/2022 07:00 final GLUCOSE 98 mg/dL 70-110 11/23/2022 00:00 11/23/2022 07:00 final BUN 18 mg/dL 5-25 11/23/2022 00:00 11/23/2022 07:00 final CREATININE 1.85 H mg/dL 0.50-1.50 11/23/2022 00:00 11/23/2022 07:00 final CALCIUM 8.3 mg/dL 8.3-10.4 11/23/2022 00:00 11/23/2022 07:00 final GLOBULIN 2.8 g/dL 2.3-3.5 11/23/2022 00:00 11/23/2022 07:00 final ALKALINE PHOS 92 U/L 35-130 11/23/2022 00:00 11/23/2022 07:00 final SGOT/AST 12 U/L 2-40 11/23/2022 00:00 11/23/2022 07:00 final SGPT/ALT 14 U/L 6-45 11/23/2022 00:00 11/23/2022 07:00 final TOTAL BILI 0.9 mg/dL 0.2-1.2 11/23/2022 00:00 11/23/2022 07:00 final TOTAL PROTEIN 5.8 L g/dL 6.0-8.3 11/23/2022 00:00 11/23/2022 07:00 final ALBUMIN 3 L g/dL 3.6-5.1 11/23/2022 00:00 11/23/2022 07:00 final OSMOLALITY 287 280-295 11/23/2022 00:00 11/23/2022 07:00 final EGFR 35 L mL/min/1.73m2 >59 11/23/2022 00:00 11/23/2022 07:00 final WBC 4.84 K/uL 4.00-11.00 11/22/2022 00:00 11/22/2022 06:31 final RBC 3.51 L M/uL 4.20-5.40 11/22/2022 00:00 11/22/2022 06:31 final HEMOGLOBIN 10.7 L g/dL 13.1-17.3 11/22/2022 00:00 11/22/2022 06:31 final HEMATOCRIT 32.7 L % 42.0-52.0 11/22/2022 00:00 11/22/2022 06:31 final MCV 93.2 fL 80.0-97.0 11/22/2022 00:00 11/22/2022 06:31 final MCH 30.5 pg 27.0-31.2 11/22/2022 00:00 11/22/2022 06:31 final MCHC 32.7 g/dL 32.0-36.0 11/22/2022 00:00 11/22/2022 06:31 final PLATELETS 103 L K/uL 150-400 11/22/2022 00:00 11/22/2022 06:31 final RDW 24.6 H % 11.6-14.8 11/22/2022 00:00 11/22/2022 06:31 final MPV 11.4 fL 9.3- 12.9 11/22/2022 00:00 11/22/2022 06:31 final NEUT# 3.21 K/uL 2.00-6.90 00:00 11/22/2022 06:31 final Neut% 66.3 % 37.0-80.0 11/22/2022 00:00 11/22/2022 06:31 final #LYMPH 1 K/uL 0.60-3.40 11/22/2022 00:00 11/22/2022 06:31 final %LYMPH 20.7 % 10.0-50.0 11/22/2022 00:00 11/22/2022 06:31 final #MONO 0.5 K/uL 0.0-0.9 11/22/2022 00:00 11/22/2022 06:31 final %MONO 9.3 % 0.0-12.0 11/22/2022 00:00 11/22/2022 06:31 final #EOS 0.2 K/uL 0.0-0.7 11/22/2022 00:00 11/22/2022 06:31 final %EOS 3.1 % 0.0-7.0 11/22/2022 00:00 11/22/2022 06:31 final #BASO 0 K/uL 0.0-0.2 11/22/2022 00:00 11/22/2022 06:31 final %BASO 0.4 % 0.00-2.50 11/22/2022 00:00 11/22/2022 06:31 final IG# 0.01 0.00-0.10 11/22/2022 00:00 11/22/2022 06:31 final IG% 0.2 0.00-0.50 11/22/2022 00:00 11/22/2022 06:31 final SODIUM 139 mmol/L 134-148 11/22/2022 00:00 11/22/2022 06:31 final POTASSIUM 3.6 mmol/L 3.5-5.3 11/22/2022 00:00 11/22/2022 06:31 final CHLORIDE 108 mmol/L 95-114 11/22/2022 00:00 11/22/2022 06:31 final CO2 20 L mEq/L 22-33 11/22/2022 00:00 11/22/2022 06:31 final ANION GAP 15 H 6-14 11/22/2022 00:00 06:31 final GLUCOSE 102 mg/dL 70-110 11/22/2022 00:00 11/22/2022 06:31 final BUN 19 mg/dL 5-25 11/22/2022 00:00 11/22/2022 06:31 final CREATININE 1.86 H mg/dL 0.50-1.50 11/22/2022 00:00 11/22/2022 06:31 final CALCIUM 8.1 L mg/dL 8.3-10.4 11/22/2022 00:00 11/22/2022 06:31 final GLOBULIN 2.5 g/dL 2.3-3.5 11/22/2022 00:00 11/22/2022 06:31 final ALKALINE PHOS 78 U/L 35-130 11/22/2022 00:00 11/22/2022 06:31 final SGOT/AST 13 U/L 2-40 11/22/2022 00:00 11/22/2022 06:31 final SGPT/ALT 14 U/L 6-45 11/22/2022 00:00 11/22/2022 06:31 final TOTAL BILI 1 mg/dL 0.2-1.2 11/22/2022 00:00 11/22/2022 06:31 final TOTAL PROTEIN 5.2 L g/dL 6.0-8.3 11/22/2022 00:00 11/22/2022 06:31 final ALBUMIN 2.7 L g/dL 3.6-5.1 11/22/2022 00:00 11/22/2022 06:31 final OSMOLALITY 289 280-295 11/22/2022 00:00 11/22/2022 06:31 final EGFR 35 L mL/min/1.73m2 >59 11/22/2022 00:00 11/22/2022 06:31 final CPK 128 U/L 26-174 11/22/2022 10:14 11/22/2022 06:31 final Cruz 587.5 H ng/ml 1.6-154.9 11/22/2022 00:00 11/22/2022 06:31 final SODIUM 139 mmol/L 134-148 11/21/2022 14:14 11/21/2022 14:14 final POTASSIUM 3.5 mmol/L 3.5-5.3 11/21/2022 14:14 11/21/2022 14:14 final CHLORIDE 110 mmol/L 95-114 11/21/2022 14:14 11/21/2022 14:14 final CO2 19 L mEq/L 22-33 11/21/2022 14:14 11/21/2022 14:14 final ANION GAP 14 6-14 11/21/2022 14:14 11/21/2022 14:14 final GLUCOSE 152 H mg/dL 70-110 11/21/2022 14:14 11/21/2022 14:14 final BUN 21 mg/dL 5-25 11/21/2022 14:14 11/21/2022 14:14 final CREATININE 2.06 H mg/dL 0.50-1.50 11/21/2022 14:14 11/21/2022 14:14 final CALCIUM 8.3 mg/dL 8.3-10.4 11/21/2022 14:14 11/21/2022 14:14 final GLOBULIN 2.4 g/dL 2.3-3.5 11/21/2022 14:14 11/21/2022 14:14 final ALKALINE PHOS 85 U/L 35-130 11/21/2022 14:14 11/21/2022 14:14 final SGOT/AST 13 U/L 2-40 11/21/2022 14:14 11/21/2022 14:14 final SGPT/ALT 15 U/L 6-45 11/21/2022 14:14 11/21/2022 14:14 final TOTAL BILI 1.2 mg/dL 0.2-1.2 11/21/2022 14:14 11/21/2022 14:14 final TOTAL PROTEIN 5.3 L g/dL 6.0-8.3 11/21/2022 14:14 11/21/2022 14:14 final ALBUMIN 2.9 L g/dL 3.6-5.1 11/21/2022 14:14 11/21/2022 14:14 final OSMOLALITY 293 280-295 11/21/2022 14:14 11/21/2022 14:14 final EGFR 31 L mL/min/1.73m2 >59 11/21/2022 14:14 11/21/2022 14:14 final CPK 87 U/L 26-174 11/21/2022 15:10 11/21/2022 14:14 final LACTIC ACID 14.5 mg/dL 4.5-19.8 11/21/2022 14:24 11/21/2022 14:14 final SODIUM 142 mmol/L 134-148 11/21/2022 05:00 11/21/2022 05:00 final POTASSIUM 3.4 L mmol/L 3.5-5.3 11/21/2022 05:00 11/21/2022 05:00 final CHLORIDE 114 mmol/L 95-114 11/21/2022 05:00 11/21/2022 05:00 final CO2 17 L mEq/L 22-33 11/21/2022 05:00 11/21/2022 05:00 final GLUCOSE 100 mg/dL 70-110 11/21/2022 05:00 11/21/2022 05:00 final BUN 20 mg/dL 5-25 11/21/2022 05:00 11/21/2022 05:00 final CREATININE 2.05 H mg/dL 0.50-1.50 11/21/2022 05:00 11/21/2022 05:00 final OSMOLALITY 296 H 280-295 11/21/2022 05:00 11/21/2022 05:00 final CALCIUM 8.7 mg/dL 8.3-10.4 11/21/2022 05:00 11/21/2022 05:00 final ANION GAP 14 6-14 11/21/2022 05:00 11/21/2022 05:00 final EGFR 31 L mL/min/1.73m2 >59 11/21/2022 05:00 11/21/2022 05:00 final BNP 3146.7 H pg/ml 0.00-100.00 11/21/2022 05:00 11/21/2022 05:00 final WBC 4.84 K/uL 4.00-11.00 11/21/2022 05:00 11/21/2022 05:00 final RBC 3.64 L M/uL 4.20-5.40 11/21/2022 05:00 11/21/2022 05:00 final HEMOGLOBIN 11.1 L g/dL 13.1-17.3 11/21/2022 05:00 11/21/2022 05:00 final HEMATOCRIT 34.1 L % 42.0-52.0 11/21/2022 05:00 11/21/2022 05:00 final MCV 93.7 fL 80.0-97.0 11/21/2022 05:00 0 11/21/2022 05:00 final MCH 30.5 pg 27.0-31.2 11/21/2022 05:00 11/21/2022 05:00 final MCHC 32.6 g/dL 32.0-36.0 11/21/2022 05:00 11/21/2022 05:00 final PLATELETS 93 L K/uL 150-400 11/21/2022 05:00 11/21/2022 05:00 final RDW 24.8 H % 11.6- 14.8 11/21/2022 05:00 11/21/2022 05:00 final MPV 10.7 fL 9.3-12.9 11/21/2022 05:00 11/21/2022 05:00 final NEUT# 3.27 K/uL 2.00-6.90 11/21/2022 05:00 11/21/2022 05:00 final Neut% 67.5 % 37.0-80.0 11/21/2022 05:00 11/21/2022 05:00 final #LYMPH 0.85 K/uL 0.60-3.40 11/21/2022 05:00 11/21/2022 05:00 final %LYMPH 17.6 % 10.0-50.0 11/21/2022 05:00 11/21/2022 05:00 final #MONO 0.6 K/uL 0.0-0.9 11/21/2022 05:00 11/21/2022 05:00 final %MONO 12 % 0.0-12.0 11/21/2022 05:00 11/21/2022 05:00 final #EOS 0.1 K/uL 0.0-0.7 11/21/2022 05:00 11/21/2022 05:00 final %EOS 2.3 % 0.0-7.0 11/21/2022 05:00 11/21/2022 05:00 final #BASO 0 K/uL 0.0-0.2 11/21/2022 05:00 11/21/2022 05:00 final %BASO 0.6 % 0.00-2.50 11/21/2022 05:00 11/21/2022 05:00 final IG# 0 0.00-0.10 11/21/2022 05:00 11/21/2022 05:00 final IG% 0 0.00-0.50 11/21/2022 05:00 11/21/2022 05:00 final Color Yellow Colorless-Lt. Yellow 11/20/2022 16:50 11/20/2022 19:32 final Appear Cloudy A Clear 11/20/2022 16:50 11/20/2022 19:32 final Glucose. Negative Negative 11/20/2022 16:50 11/20/2022 19:32 final Bilirubin Negative Negative 11/20/2022 16:50 11/20/2022 19:32 final Icto N/A A Negative 11/20/2022 16:50 11/20/2022 19:32 final Ketones Negative Negative 11/20/2022 16:50 11/20/2022 19:32 final Sp.[place] 1.015 1.000-1.030 11/20/2022 16:50 11/20/2022 19:32 final Blood 2+ A Negative 11/20/2022 16:50 11/20/2022 19:32 final pH 5.5 5-8.5 11/20/2022 16:50 11/20/2022 19:32 final Protein 2+ A Negative 11/20/2022 16:50 11/20/2022 19:32 final Urobil 0.2 E.U./dL A 0.2-1.0 11/20/2022 16:50 11/20/2022 19:32 final Nitrite Negative Negative 11/20/2022 16:50 11/20/2022 19:32 final Leukocytes 3+ A Negative 11/20/2022 16:50 11/20/2022 19:32 final U.WBC TNTC A 11/20/2022 16:50 11/20/2022 19:32 final U.RBC 5-10/HPF A 11/20/2022 16:50 11/20/2022 19:32 final Bacteria 3+ A 11/20/2022 16:50 11/20/2022 19:32 final Epithelial None A 11/20/2022 16:50 11/20/2022 19:32 final Mucus Negative A 11/20/2022 16:50 11/20/2022 19:32 final Urine Crystals None Seen 11/20/2022 16:50 11/20/2022 19:32 final Ur Casts None Seen 11/20/2022 16:50 11/20/2022 19:32 final Urine Yeast Not Present 11/20/2022 16:50 11/20/2022 19:32 final Urine Volume Sufficient 11/20/2022 16:50 11/20/2022 19:32 final Other See Comment A 11/20/2022 16:50 11/20/2022 19:32 final FINAL REPORT See Comment 11/20/2022 19:51 11/20/2022 19:32 final BNP 2880.9 H pg/ml 0.00-100.00 11/20/2022 18:03 17:28 final LACTIC ACID 25.6 H mg/dL 4.5-19.8 11/20/2022 17:28 11/20/2022 17:28 final CARBON MONOXIDE 11/20/2022 16:50 11/20/2022 16:52 registered CK 159 U/L 26-174 11/20/2022 16:50 11/20/2022 16:50 final CKMB 5.6 ng/ml 0.0-9.2 11/20/2022 16:50 11/20/2022 16:50 final TROPONIN I 0.156 ng/mL 0.000-0.400 11/20/2022 16:50 11/20/2022 16:50 final MYOGLOBIN 426.1 H ng/ml 1.6- 154.9 11/20/2022 16:50 11/20/2022 16:50 final WBC 5.6 K/uL 4.00-11.00 11/20/2022 16:50 11/20/2022 16:50 final RBC 3.99 L M/uL 4.20-5.40 11/20/2022 16:50 11/20/2022 16:50 final HEMOGLOBIN 12 L g/dL 13.1-17.3 11/20/2022 16:50 16:50 final HEMATOCRIT 37.2 L % 42.0-52.0 11/20/2022 16:50 11/20/2022 16:50 final MCV 93.2 fL 80.0-97.0 11/20/2022 16:50 11/20/2022 16:50 final MCH 30.1 pg 27.0-31.2 11/20/2022 16:50 11/20/2022 16:50 final MCHC 32.3 g/dL 32.0- 36.0 11/20/2022 16:50 11/20/2022 16:50 final PLATELETS 124 L K/uL 150-400 11/20/2022 16:50 11/20/2022 16:50 final RDW 25.1 H % 11.6-14.8 11/20/2022 16:50 11/20/2022 16:50 final MPV ---- 9.3-12.9 11/20/2022 16:50 11/20/2022 16:50 final NEUT# 4.21 K/uL 2.00-6.90 11/20/2022 16:50 11/20/2022 16:50 final Neut% 75.2 % 37.0-80.0 11/20/2022 16:50 11/20/2022 16:50 final #LYMPH 0.71 K/uL 0.60-3.40 11/20/2022 16:50 11/20/2022 16:50 final %LYMPH 12.7 % 10.0-50.0 11/20/2022 16:50 11/20/2022 16:50 final #MONO 0.6 K/uL 0.0-0.9 11/20/2022 16:50 11/20/2022 16:50 final %MONO 10.5 % 0.0-12.0 11/20/2022 16:50 11/20/2022 16:50 final #EOS 0 K/uL 0.0-0.7 11/20/2022 16:50 11/20/2022 16:50 final %EOS 0.5 % 0.0-7.0 11/20/2022 16:50 11/20/2022 16:50 final #BASO 0.1 K/uL 0.0-0.2 11/20/2022 16:50 11/20/2022 16:50 final %BASO 0.9 % 0.00-2.50 11/20/2022 16:50 11/20/2022 16:50 final IG# 0.01 0.00-0.10 11/20/2022 16:50 11/20/2022 16:50 final IG% 0.2 0.00-0.50 11/20/2022 16:50 11/20/2022 16:50 final SODIUM 140 mmol/L 134-148 11/20/2022 16:50 11/20/2022 16:50 final POTASSIUM 3.5 mmol/L 3.5-5.3 11/20/2022 16:50 11/20/2022 16:50 final CHLORIDE 112 mmol/L 95-114 11/20/2022 16:50 11/20/2022 16:50 final CO2 16 L mEq/L 22-33 11/20/2022 16:50 11/20/2022 16:50 final ANION GAP 16 H 6-14 11/20/2022 16:50 11/20/2022 16:50 final GLUCOSE 120 H mg/dL 70-110 11/20/2022 16:50 11/20/2022 16:50 final BUN 19 mg/dL 5-25 11/20/2022 16:50 11/20/2022 16:50 final CREATININE 2.13 H mg/dL 0.50-1.50 11/20/2022 16:50 11/20/2022 16:50 final CALCIUM 8.9 mg/dL 8.3-10.4 11/20/2022 16:50 11/20/2022 16:50 final GLOBULIN 3.3 g/dL 2.3-3.5 11/20/2022 16:50 11/20/2022 16:50 final ALKALINE PHOS 101 U/L 35-130 11/20/2022 16:50 11/20/2022 16:50 final SGOT/AST 14 U/L 2-40 11/20/2022 16:50 11/20/2022 16:50 final SGPT/ALT 15 U/L 6-45 11/20/2022 16:50 11/20/2022 16:50 final TOTAL BILI 2.1 H mg/dL 0.2-1.2 11/20/2022 16:50 11/20/2022 16:50 final TOTAL PROTEIN 6.8 g/dL 6.0-8.3 11/20/2022 16:50 11/20/2022 16:50 final ALBUMIN 3.5 L g/dL 3.6-5.1 11/20/2022 16:50 11/20/2022 16:50 final OSMOLALITY 292 280-295 11/20/2022 16:50 11/20/2022 16:50 final EGFR 30 L mL/min/1.73m2 >59 11/20/2022 16:50 11/20/2022 16:50 final EKG Complete 11/20/2022 16:50 11/20/2022 16:50 final pH 7.44 7.35-7.45 11/20/2022 16:47 11/20/2022 16:47 final pCO2 19 L mm/Hg 35-45 11/20/2022 16:47 11/20/2022 16:47 final pO2 95 mm/Hg 80-95 11/20/2022 16:47 11/20/2022 16:47 final HCO3 13 L mmol/L 20-31 11/20/2022 16:47 11/20/2022 16:47 final BASE EXCESS -11 L mmol/L 1.80-4.20 11/20/2022 16:47 11/20/2022 16:47 final O2 SAT 98 RM AIR 95-100 11/20/2022 16:47 11/20/2022 16:47 final CK CPK ISOENZYMES 11/22/2022 00:00 cancelled CK CPK ISOENZYMES 11/21/2022 14:14 cancelled Assessment Problem List Presence of prosthetic heart valve Total self-care deficit Vascular dementia Paroxysmal atrial fibrillation Congestive heart failure (disorder) Urinary tract infection Chronic kidney disease CKD stage 3B Pulmonary edema Dark-brown colored urine Recurrent falls Delirium Retention of urine Plan 1. Self-care deficit/Recurrent Falls - PT and OT consulted, appreciate their assistance and recommendations. - Discharging to [facility] this morning. 2. Cognitive impairment - Suspected vascular dementia - Have discussed extensively with patient's extended family that he will need closer monitoring and likely assistance with ADL's and IADL's. - Medication noncompliance has been occurring secondary to cognitive impairment. 3. Delirium - Suspect hospital- induced delirium, exacerbated by his underlying dementia. - 1g haloperidol PRN for agitation, maximum of 5g/daily. 4. Urine retention - Schroeder catheter was forcefully removed by the patient on 11/25 during a period of confusion. It was replaced and he has continued to have adequate urine output. - Suspect BPH is contributing. Continue Tamsulosin 0.4mg and Finasteride 5mg PO daily. - Will attempt another trial without catheter after there has been sufficient bladder rest. 5. Paroxysmal afib - [id number] score of 4 - Anticoagulate with eliquis, renally dosed. 6. CHF - Continue oral furosemide. - Carvedilol 6.25mg BID, monitor for hypotension. 7. UTI - Continue nitrofurantoin for a total of 10 days. 8. Dark urine - Resolved. 9. CKD3B - Renally dose medications. - Baseline creatinine around 2.0. - Follows with [facility]. Dispo: Discharge to [facility]. Follow-up in clinic in 7-10 days. Medications given this visit: Ordered & Completed Meds Table Ordered Medication Start Date/Time Dosage Route Frequency Status NORMAL SALINE 1000ML IV BAG 0.9 % 11/20/2022 17:35 INTRAVENOUS X1 completed FENTANYL INJ 50MCG/ML 1 ML VIAL 11/20/2022 17:35 25 MCG IV PUSH X1 completed ORPHENADRINE 60 MG/2ML (NORFLEX) VIAL 11/20/2022 17:53 30 MG IV PUSH X1 completed FENTANYL INJ 50MCG/ML 1 ML VIAL 11/20/2022 18:06 50 MCG IV PUSH X1 completed FUROSEMIDE VIAL 40 MG (LASIX VIAL) 11/20/2022 19:07 40 MG IV PUSH X1 completed APIXABAN TAB 5 MG (ELIQUIS) 11/20/2022 19:08 2.5 MG ORAL X1 completed CARVEDILOL TAB 6.25 MG (COREG) 11/20/2022 19:08 6.25 MG ORAL X1 completed Ceftriaxone/NS IVPB : 1GM/50ML 11/20/2022 20:31 100 ml/hr IV PIGGYBACK DAILY completed PANTOPRAZOLE VIAL 40 MG (PROTONIX IV) 11/20/2022 19:14 40 MG IV PUSH DAILY completed CARVEDILOL TAB 6.25 MG (COREG) 11/21/2022 08:00 6.25 MG ORAL BID active APIXABAN TAB 5 MG (ELIQUIS) 11/21/2022 08:00 2.5 MG ORAL BID active FUROSEMIDE TAB 40 MG (LASIX) 11/21/2022 08:00 40 MG ORAL DAILY active CEFTRIAXONE PREMIX IV BAG 1 GM/50ML 11/21/2022 09:02 100 ml/hr INTRAVENOUS DAILY completed FUROSEMIDE VIAL 40 MG (LASIX VIAL) 11/21/2022 09:03 40 MG IV PUSH X1 completed SIMVASTATIN TAB 40 MG (ZOCOR) 11/21/2022 09:04 40 MG ORAL QHS completed POTASSIUM CHLORIDE TAB 20 MEQ (K-DUR) 11/21/2022 09:30 40 MEQ ORAL X1 completed FUROSEMIDE VIAL 40 MG (LASIX VIAL) 11/22/2022 08:57 40 MG IV PUSH DAILY completed ACETAMINOPHEN 500 MG TAB (TYLENOL) 11/22/2022 10:48 1000 MG ORAL TID active PEG POWDER UD (MIRALAX 17GM UNIT DOSE) 11/22/2022 17:49 17 GM ORAL DAILY active TAMSULOSIN CAP 0.4 MG (FLOMAX) 11/23/2022 14:54 0.4 MG ORAL QPM completed TAMSULOSIN CAP 0.4 MG (FLOMAX) 11/23/2022 15:30 0.4 MG ORAL DAILY active LORAZEPAM VIAL 2 MG/ML (ATIVAN VIAL) 11/24/2022 15:15 0.5 MG IM OPTIONS X1 completed LORAZEPAM VIAL 2 MG/ML (ATIVAN VIAL) 11/24/2022 15:46 0.5 MG IM OPTIONS X1 completed HALOPERIDOL 5 MG/ML (HALDOL 1CC VIAL) 11/24/2022 22:59 5 MG IM OPTIONS DAILY completed LORAZEPAM VIAL 2 MG/ML (ATIVAN VIAL) 11/24/2022 23:00 0.5 MG IM OPTIONS PRN Q4H completed HALOPERIDOL 5 MG/ML (HALDOL 1CC VIAL) 11/24/2022 23:22 5 MG IM OPTIONS X1 completed FINASTERIDE TAB 5 MG (PROSCAR) 0 11/25/2022 09:03 5 MG ORAL DAILY active LORAZEPAM VIAL 2 MG/ML (ATIVAN VIAL) 11/25/2022 09:38 1 MG IM OPTIONS X1 completed HALOPERIDOL 5 MG/ML (HALDOL 1CC VIAL) 11/25/2022 09:38 5 MG IM OPTIONS PRN X1 active CEFTRIAXONE PREMIX IV BAG 1 GM/50ML 11/25/2022 17:00 100 ml/hr INTRAVENOUS X1 completed HALOPERIDOL TAB 1 MG (HALDOL) 11/26/2022 10:00 1 MG ORAL PRN active MACROBID CAP 100 MG (NITROFURANTOIN-BID) 11/26/2022 10:51 100 MG ORAL BID active Discharge Medications: Discharge Medications Aspirin 81MG Oral Tablet, Enteric Coated Clopidogrel 75MG Oral Tablet Coreg 12.5MG Oral Tablet Lipitor 10MG Oral Tablet Ramipril 10MG Oral Capsule Tums 750 MG Oral Tablet, Chewable amLODIPine Besylate 5MG Oral Tablet Imaging Narrative Notes [facility] \TM00\\12PI\\DRAo\\BM09\\PGNo\\MRB2\ \MRHo\ [facility] [address] [place] [address] ---------NAME--------- NUMBER SEX AGE ADMIT DISC. XRAY# F/C TYPE MARYLIN Mcnally [id number] M 77 11/20/22 [id number] M5 I/P DATE OF : 1945 M/R# [id number] PH#: [phone] 110-1 \MRHx\ LOCATION: TRANSCRIBED: 11/21/22 9:[address] CERVICAL SPINE W/O [id number] COMPLETED:11/20/22 18:14 S [id number] {SPINE PROCED REASON: Trauma PHYSICIAN: TERRI BARRERA B R A D I O L O G Y R E P O R T [facility] Final Report Patient: DARIN COULTER Time Out: 07:57 Exam(s): CT C SPINE EXAM: CT CERVICAL SPINE INDICATION: Neck injury. TECHNIQUE: Thin axial images through the cervical spine were obtained. Sagittal and coronal images were reformatted and reviewed. FINDINGS: There is a sclerotic curvature of the cervical spine. There are advanced degenerative changes of the atlantoaxial joint. There is disc space narrowing at C5-6 and C6-7. There are some hypertropic changes of the facets bilaterally in the midcervical region. There is no fracture or misalignment. IMPRESSION: 1. Scoliosis with associated degenerati ve changes of the disc and facets. Patient has a sclerotic curvature of the cervical spine. There are no acute abnormalities seen. 2. I agree with preliminary interpretat ion. All CT scans use one or more of the following dose optimizing techniques: automated exposure control, mA and/or KvP adjustment based on patient size and exam type, or iterative reconstruction. Interpreted by Brandon Omalley M.D. [facility] Exam Id [id number] [facility] R \TM00\\12PI\\DRAo\\BM09\\PGNo\\MRB2\ \MRHo\ [facility] [address] [facility] [place] [address] ---------NAME--------- NUMBER SEX AGE ADMIT DISC. XRAY# F/C TYPE MARYLIN Mcnally [id number] M 77 11/20/22 74938 M5 I/P DATE OF : 1945 M/R# [id number] #: [id number] 110-1 \MRHx\ LOCATION: TRANSCRIBED: 11/21/22 9:[address] THORACIC SPINE W/O [id number] COMPLETED:11/20/22 18:14 SKS [id number] {SPINE PROCED REASON: Trauma PHYSICIAN: TERRI BARRERA B R A D I O L O G Y R E P O R T [facility] Final Report Patient: DARIN COULTER Time Out: 07:57 Exam(s): CT T SPINE EXAM: CT THORACIC SPINE INDICATION: Back trauma. TECHNIQUE: Thin axial sections through the thoracic spine were obtained. Sagittal and coronal images were reformatted and reviewed. FINDINGS: There is severe spondylosis of the thoracic spine with bridging osteophytes at every level anteriorly. There is no bony spinal stenosis. There are no compression fractures or misalignment. IMPRESSION: 1. Severe spondylosis of the thoracic s pine. No acute abnormality seen. 2. I agree with preliminary interpretat ion. All CT scans use one or more of the following dose optimizing techniques: automated exposure control, mA and/or KvP adjustment based on patient size and exam type, or iterative reconstruction. Interpreted by Brandon Omalley M.D. [facility] Exam Id [id number] [facility] R \TM00\\12PI\\DRAo\\BM09\\PGNo\\MRB2\ \MRHo\ [facility] [address] [facility] [place] [address] ---------NAME--------- NUMBER SEX AGE ADMIT DISC. XRAY# F/C TYPE MARYLIN KIMBLE Dali [id number] M 77 11/20/22 [id number] M5 I/P DATE OF : 1945 M/R# [id number] #: [id number] 110-1 \[facility]\ LOCATION: TRANSCRIBED: 11/21/22 9:56 0 XR CHEST SINGLE VIEW [id number] COMPLETED:11/20/22 18:14 SKS [id number] {REASON FOR CHEST: Cough PHYSICIAN: TERRI BARRERA B R A D I O L O G Y R E P O R T [facility] Final Report Patient: DARIN COULTER Time Out: 07:56 Exam(s): XR CHEST SINGLE VIEW EXAM: XR CHEST SINGLE VIEW INDICATION: Cough. TECHNIQUE: Portable chest 1730. 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 There is cardiomegaly with vascular pulmonary vascular congestion and interstitial edema. IMPRESSION: Congestive heart failure. This appears worse compared to exam dated 10/30/2021. Interpreted by Brandon Shahram M.D. [facility] Exam Id [id number] [facility] \TM00\\12PI\\DRAo\\BM09\\PGNo\\MRB2\ \MRHo\ [facility] [address] [facility] [place] [address] ---------NAME--------- NUMBER SEX AGE ADMIT DISC. XRAY# F/C TYPE MARYLIN Mcnally [id number] M 77 11/20/22 32464 M5 I/P DATE OF : 1945 M/R# [id number] PH#: [phone] 110-1 \MRHx\ LOCATION: TRANSCRIBED: 11/21/22 9:[address] HEAD-W/O CONTRAST [id number] COMPLETED:11/20/22 18:14 [facility] [id number] {REASON FOR TEST: Altered Mental Status PHYSICIAN: TERRI BARRERA B R A D I O L O G Y R E P O R T [facility] Final Report Patient: DARIN COULTER Time Out: 07:37 Exam(s): CT HEAD WO Contrast EXAM: CT HEAD WITHOUT CONTRAST INDICATION: Altered mental status. FINDINGS: There is generalized atrophy. There is decreased density in the periventricular white matter consistent with chronic small vessel ischemic change. There are no masses or hemorrhages. There are no extraaxial fluid collections. IMPRESSION: 1. 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 No acute abnormality seen. 2. I agree with preliminary interpretat ion. All CT scans use one or more of the following dose optimizing techniques: automated exposure control, mA and/or KvP adjustment based on patient size and exam type, or iterative reconstruction. Interpreted by Brandon Omalley M.D. [facility] Exam Id [id number] History and Physical Notes SAMSON LANDIS 11/21/2022 14:56 All Demographics Patient Name Age Sex Visit Number Admission Date/Time Attending Physician Date of Service Room and Bed Emergency Contact DARIN COULTER 1945 77 years Male [id number] 11/20/2022 20:45 PETROS MURRAY 11/20/2022 110-1 11/21/2022 08:10 Admission Date: Date of Service: 11/20/2022 Reason for Admission: Recurrent falls/Self care deficit Code Status: DNR Attending Physician: Petros Murray MD Primary Care Physician: Jackie Franco APRN History of Present Illness Darin Coulter is a 77 year old male with a history of recently diagnosed cognitive impairment/suspected dementia, CKD3B, CAD, and CHF who presented to the emergency room with concerns for recurrent falls and self care deficit. Mr. Coulter currently lives alone and does not have many close family members. We have been evaluating him for possible dementia in the outpatient setting for the past few weeks. Mr. Coulter's SLUMS and MMSE were concerning for cognitive impairment and/or dementia. Mr. Coulter's [id number]-law and his ex- have been checking in on him more and have found that his gas was turned off at his home, he was not bathing himself, and it appears that many of his bills have gone unpaid unintentionally. He has been using a kerosene heater to heat his home. EMS was called due to concerns for him having recurrent falls and a gas odor in his home. Mr. Coulter did not sustain any injuries or hit his head during these falls. His home was also noted to be in poor condition. It also appears that Mr. Coulter has not been taking his medications. He does have a complicated past medical history and was supposed to be taking dual anti- platelet therapy. Evaluation in the ER was concerning for generalized weakness, fluid overload, and atrial fibrillation without RVR. CT head negative for acute process but consistent with chronic small vessel ischemic disease and atrophy. The decision was made to admit the patient for further cares. Past Medical/Surgical/Family/Social History Past Medical History: All Problems Problem ICD Code Onset Date Resolved Date Age Status Comment Acute bronchitis J20.9 10/30/2021 Historic Upper respiratory disease, acute J06.9 10/30/2021 Historic Chronic kidney disease stage 3 N18.30 10/30/2021 Historic HTN I10 10/30/2021 Historic Gout M10.9 10/30/2021 Historic senior care use of anticoagulants Z79.01 10/30/2021 Historic Mixed hyperlipidemia E78.2 10/30/2021 Historic History of COVID-19 Z86.16 10/30/2021 Historic Prediabetes R73.03 10/30/2021 Historic Presence of prosthetic heart valve Z95.2 Active Osteoarthritis M19.90 10/30/2021 Historic Acute COVID-19 U07.1 11/21/2022 Historic Hypoxemia R09.02 11/21/2022 Historic Total self-care deficit Z73.89 Active Vascular dementia F01.50 Active Paroxysmal atrial fibrillation I48.0 Active Congestive heart failure (disorder) I50.9 Active Urinary tract infection N39.0 Active Chronic kidney disease N18.9 Active CKD stage 3B N18.32 Active Pulmonary edema J81.1 Active Past Surgical History: Valve replacement Past Family History: Reviewed, noncontributory. Past Social History: Patient is retired. Lives alone. Former smoker. No alcohol or drugs. Allergies: Allergy List No Known Drug Allergies, medication Current Medications: Home Meds: Dose and Freq Medication Dosage Frequency amLODIPine Besylate 5MG Oral Tablet 5 MILLIGRAMS Once A Day Tums 750 MG Oral Tablet, Chewable 750 MG Once A Day Ramipril 10MG Oral Capsule 10 MILLIGRAMS Once A Day Lipitor 10MG Oral Tablet 10 MILLIGRAMS At Bedtime Coreg 12.5MG Oral Tablet 12.5 MILLIGRAMS Twice A Day Clopidogrel 75MG Oral Tablet 75 MILLIGRAMS Once A Day Aspirin 81MG Oral Tablet, Enteric Coated 81 MILLIGRAMS Once A Day Review of Systems A complete 12-point review of systems is negative other than stated in the HPI. Physical Exam Most Recent Vital Signs BP (mm/Hg) BP Position/Site Heart Rate Resp Temp (C) Temp (F) SPO2% O2 Device Pain Score Height (cm) Height (in) Weight (kg) Weight (lbs/ozs) 116/80 Sitting/Right Arm 81 17 36.7 Temporal 98 Temporal 97 % Room Air 21% 10 177.8 cm 70 in 79.83 kg 176 lbs GENERAL: Awake, alert, NAD. SKIN: Warm, dry, intact. No rash, lesion, or jaundice. HEAD: Normocephalic, atraumatic, with no visible or palpable masses, depressions, or scaring. EYES: Pupils are equal, round and reactive to light. Extraocular muscles are intact. Sclerae are white without injection or icterus. Fundi are without papilledema, hemorrhages or exudates, with normal vessels. NOSE: No external lesions. Nares patent bilaterally. MOUTH/THROAT: Moist mucus membranes. NECK: Trachea is midline. CHEST/LUNGS: Symmetrical with equal breath sounds. Clear to auscultation bilaterally. No rales, rhonchi or wheezes are appreciated. Decreased air movement in the left lower lung space. There is no tenderness on palpation of the chest. HEART: Regular rate and rhythm. No murmurs, rubs or gallop. No S3, S4 or rub is auscultated. ABDOMEN: Soft, non-tender and non-distended. Normal bowel sounds. No hepatosplenomegaly or hernias or masses noted. No guarding, rigidity or rebound tenderness. MUSCULOSKELETAL: Normal range of motion of all four extremities. EXTREMITIES: 2+ edema in the bilateral lower extremities up to the hip. No cyanosis or clubbing. NEUROLOGIC: Patient is alert and oriented to person, place, but only partially to his situation. No focal deficit. PSYCHIATRIC: Mood and affect are appropriate. Poor short-term memory recall. Poor judgement and insight. Pre-Admission Studies: Lab Results: Last Week Test R esults Units Reference Range Ordered Collected Status SODIUM 142 mmol/L 134-148 11/21/2022 05:00 11/21/2022 05:00 final POTASSIUM 3.4 L mmol/L 3.5-5.3 11/21/2022 05:00 11/21/2022 05:00 final CHLORIDE 114 mmol/L 95-114 11/21/2022 05:00 11/21/2022 05:00 final CO2 17 L mEq/L 22-33 11/21/2022 05:00 11/21/2022 05:00 final GLUCOSE 100 mg/dL 70-110 11/21/2022 05:00 11/21/2022 05:00 final BUN 20 mg/dL 5-25 11/21/2022 05:00 11/21/2022 05:00 final CREATININE 2.05 H mg/dL 0.50-1.50 11/21/2022 05:00 11/21/2022 05:00 final OSMOLALITY 296 H 280-295 11/21/2022 05:00 11/21/2022 05:00 final CALCIUM 8.7 mg/dL 8.3-10.4 11/21/2022 05:00 11/21/2022 05:00 final ANION GAP 14 6-14 11/21/2022 05:00 11/21/2022 05:00 final EGFR 31 L mL/min/1.73m2 >59 11/21/2022 05:00 11/21/2022 05:00 final BNP 3146.7 H pg/ml 0.00-100.00 11/21/2022 05:00 11/21/2022 05:00 final WBC 4.84 K/uL 4.00-11.00 11/21/2022 05:00 11/21/2022 05:00 final RBC 3.64 L M/uL 4.20-5.40 11/21/2022 05:00 11/21/2022 05:00 final HEMOGLOBIN 11.1 L g/dL 13.1-17.3 11/21/2022 05:00 11/21/2022 05:00 final HEMATOCRIT 34.1 L % 42.0-52.0 11/21/2022 05:00 11/21/2022 05:00 final MCV 93.7 fL 80.0-97.0 11/21/2022 05:00 11/21/2022 05:00 final MCH 30.5 pg 27.0-31.2 11/21/2022 05:00 11/21/2022 05:00 final MCHC 32.6 g/dL 32.0-36.0 11/21/2022 05:00 11/21/2022 05:00 final PLATELETS 93 L K/uL 150-400 11/21/2022 05:00 11/21/2022 05:00 final RDW 24.8 H % 11.6-14.8 11/21/2022 05:00 11/21/2022 05:00 final MPV 10.7 fL 9.3-12.9 11/21/2022 05:00 11/21/2022 05:00 final NEUT# 3.27 K/uL 2.00-6.90 11/21/2022 05:00 11/21/2022 05:00 final Neut% 67.5 % 37.0-80.0 11/21/2022 05:00 11/21/2022 05:00 final #LYMPH 0.85 K/uL 0.60-3.40 11/21/2022 05:00 11/21/2022 05:00 final %LYMPH 17.6 % 10.0-50.0 11/21/2022 05:00 11/21/2022 05:00 final #MONO 0.6 K/uL 0.0-0.9 11/21/2022 05:00 11/21/2022 05:00 final %MONO 12 % 0.0-12.0 11/21/2022 05:00 11/21/2022 05:00 final #EOS 0.1 K/uL 0.0-0.7 11/21/2022 05:00 11/21/2022 05:00 final %EOS 2.3 % 0.0-7.0 11/21/2022 05:00 11/21/2022 05:00 final #BASO 0 K/uL 0.0-0.2 11/21/2022 05:00 11/21/2022 05:00 final %BASO 0.6 % 0.00-2.50 11/21/2022 05:00 11/21/2022 05:00 final IG# 0 0.00-0.10 11/21/2022 05:00 11/21/2022 05:00 final IG% 0 0.00-0.50 11/21/2022 05:00 11/21/2022 05:00 final Color Yellow Colorless-Lt. Yellow 11/20/2022 16:50 11/20/2022 19:32 final Appear Cloudy A Clear 11/20/2022 16:50 11/20/2022 19:32 final Glucose. Negative Negative 11/20/2022 16:50 11/20/2022 19:32 final Bilirubin Negative Negative 11/20/2022 16:50 11/20/2022 19:32 final Icto N/A A Negative 11/20/2022 16:50 11/20/2022 19:32 final Ketones Negative Negative 11/20/2022 16:50 11/20/2022 19:32 final Sp.Mon[place] 1.015 1.000-1.030 11/20/2022 16:50 11/20/2022 19:32 final Blood 2+ A Negative 11/20/2022 16:50 11/20/2022 19:32 final pH 5.5 5-8.5 11/20/2022 16:50 11/20/2022 19:32 final Protein 2+ A Negative 11/20/2022 16:50 11/20/2022 19:32 final Urobil 0.2 E.U./dL A 0.2-1.0 11/20/2022 16:50 11/20/2022 19:32 final Nitrite Negative Negative 11/20/2022 16:50 11/20/2022 19:32 final Leukocytes 3+ A Negative 11/20/2022 16:50 11/20/2022 19:32 final U.WBC TNTC A 11/20/2022 16:50 11/20/2022 19:32 final U.RBC 5-10/HPF A 11/20/2022 16:50 11/20/2022 19:32 final Bacteria 3+ A 11/20/2022 16:50 11/20/2022 19:32 final Epithelial None A 11/20/2022 16:50 11/20/2022 19:32 final Mucus Negative A 11/20/2022 16:50 11/20/2022 19:32 final Urine Crystals None Seen 11/20/2022 16:50 11/20/2022 19:32 final Ur Casts None Seen 11/20/2022 16:50 11/20/2022 19:32 final Urine Yeast Not Present 11/20/2022 16:50 11/20/2022 19:32 final Urine Volume Sufficient 11/20/2022 16:50 11/20/2022 19:32 final Other See Comment A 16:50 11/20/2022 19:32 final Prelim Report 11/20/2022 19:51 11/20/2022 19:32 registered BNP 2880.9 H pg/ml 0.00-100.00 11/20/2022 18:03 11/20/2022 17:28 final LACTIC ACID 25.6 H mg/dL 4.5-19.8 11/20/2022 17:28 11/20/2022 17:28 final CARBON MONOXIDE 11/20/2022 16:50 11/20/2022 16:52 registered CK 159 U/L 26-174 11/20/2022 16:50 11/20/2022 16:50 final CKMB 5.6 ng/ml 0.0-9.2 11/20/2022 16:50 11/20/2022 16:50 final TROPONIN I 0.156 ng/mL 0.000-0.400 11/20/2022 16:50 11/20/2022 16:50 final MYOGLOBIN 426.1 H ng/ml 1.6-154.9 11/20/2022 16:50 11/20/2022 16:50 final WBC 5.6 K/uL 4.00-11.00 11/20/2022 16:50 11/20/2022 16:50 final RBC 3.99 L M/uL 4.20-5.40 11/20/2022 16:50 11/20/2022 16:50 final HEMOGLOBIN 12 L g/dL 13.1-17.3 11/20/2022 16:50 11/20/2022 16:50 final HEMATOCRIT 37.2 L % 42.0-52.0 11/20/2022 16:50 11/20/2022 16:50 final MCV 93.2 fL 80.0-97.0 11/20/2022 16:50 11/20/2022 16:50 final MCH 30.1 pg 27.0-31.2 11/20/2022 16:50 11/20/2022 16:50 final MCHC 32.3 g/dL 32.0-36.0 11/20/2022 16:5 0 11/20/2022 16:50 final PLATELETS 124 L K/uL 150-400 11/20/2022 16:50 11/20/2022 16:50 final RDW 25.1 H % 11.6-14.8 11/20/2022 16:50 11/20/2022 16:50 final MPV ---- 9.3-12.9 11/20/2022 16:50 11/20/2022 16:50 final NEUT# 4.21 K/uL 2.00-6.90 11/20/2022 16:50 11/20/2022 16:50 final Neut% 75.2 % 37.0-80.0 11/20/2022 16:50 11/20/2022 16:50 final #LYMPH 0.71 K/uL 0.60-3.40 11/20/2022 16:50 11/20/2022 16:50 final %LYMPH 12.7 % 10.0-50.0 11/20/2022 16:50 11/20/2022 16:50 final #MONO 0.6 K/uL 0.0-0.9 11/20/2022 16:50 11/20/2022 16:50 final %MONO 10.5 % 0.0-12.0 11/20/2022 16:50 11/20/2022 16:50 final #EOS 0 K/uL 0.0- 0.7 11/20/2022 16:50 11/20/2022 16:50 final %EOS 0.5 % 0.0-7.0 11/20/2022 16:50 11/20/2022 16:50 final #BASO 0.1 K/uL 0.0-0.2 11/20/2022 16:50 11/20/2022 16:50 final %BASO 0.9 % 0.00-2.50 11/20/2022 16:50 11/20/2022 16:50 final IG# 0.01 0.00-0.10 11/20/2022 16:50 11/20/2022 16:50 final IG% 0.2 0.00-0.50 11/20/2022 16:50 11/20/2022 16:50 final SODIUM 140 mmol/L 134-148 11/20/2022 16:50 11/20/19 16:50 final POTASSIUM 3.5 mmol/L 3.5-5.3 11/20/2022 16:50 11/20/2022 16:50 final CHLORIDE 112 mmol/L 95-114 11/20/2022 16:50 11/20/2022 16:50 final CO2 16 L mEq/L 22-33 11/20/2022 16:50 11/20/2022 16:50 final ANION GAP 16 H 6-14 11/20/2022 16:50 11/20/2022 16:50 final GLUCOSE 120 H mg/dL 70-110 11/20/2022 16:50 11/20/2022 16:50 final BUN 19 mg/dL 5-25 11/20/2022 16:50 11/20/2022 16:50 final CREATININE 2.13 H mg/dL 0.50-1.50 11/20/2022 16:50 11/20/2022 16:50 final CALCIUM 8.9 mg/dL 8.3-10.4 11/20/2022 16:50 11/20/2022 16:50 final GLOBULIN 3.3 g/dL 2.3-3.5 11/20/2022 16:50 11/20/2022 16:50 final ALKALINE PHOS 101 U/L 35- 130 11/20/2022 16:50 11/20/2022 16:50 final SGOT/AST 14 U/L 2-40 11/20/2022 16:50 11/20/2022 16:50 final SGPT/ALT 15 U/L 6-45 11/20/2022 16:50 11/20/2022 16:50 final TOTAL BILI 2.1 H mg/dL 0.2-1.2 11/20/2022 16:50 11/20/2022 16:50 final TOTAL PROTEIN 6.8 g/dL 6.0-8.3 11/20/2022 16:50 11/20/2022 16:50 final ALBUMIN 3.5 L g/dL 3.6-5.1 11/20/2022 16:50 11/20/2022 16:50 final OSMOLALITY 292 280-295 11/20/2022 16:50 11/20/2022 16:50 final EGFR 30 L mL/min/1.73m2 >59 11/20/2022 16:50 11/20/2022 16:50 final EKG Complete 11/20/2022 16:50 11/20/2022 16:50 final pH 7.44 7.35-7.45 11/20/2022 16:47 11/20/2022 16:47 final pCO2 19 L mm/Hg 35-45 11/20/2022 16:47 11/20/2022 16:47 final pO2 95 mm/Hg 80-95 11/20/2022 16:47 11/20/2022 16:47 final HCO3 13 L mmol/L 20-31 11/20/2022 16:47 11/20/2022 16:47 final BASE EXCESS -11 L mmol/L 1.80-4.20 11/20/2022 16:47 11/20/2022 16:47 final O2 SAT 98 RM AIR 95-100 11/20/2022 16:47 11/20/2022 16:47 final Assessment Problem List Presence of prosthetic heart valve Total self- care deficit Vascular dementia Paroxysmal atrial fibrillation Congestive heart failure (disorder) Urinary tract infection Chronic kidney disease CKD stage 3B Pulmonary edema Dark-brown colored urine Recurrent falls Plan 1. Self-care deficit/Recurrent Falls - Consulting PT and OT, appreciate their assistance and recommendations. - Patient would like to go home as opposed to a SNF but I am not sure if he will be safe at home without close monitoring from friends/family. 2. Cognitive impairment - Suspected vascular dementia - Have discussed extensively with patient's extended family that he will need closer monitoring and likely assistance with ADL's and IADL's. - Medication noncompliance has been occurring secondary to cognitive impairment. 3. Paroxysmal afib - [id number] score of 4 - Anticoagulate with eliquis, renally dosed. Hold DAPT. - Monitor platelets closely, <100 this morning. 4. CHF - BNP significantly elevated. 2+ peripheral edema and left pulmonary edema noted. - Schroeder placed. Diuresing with IV lasix. - Carvedilol 6.25mg BID, monitor for hypotension. 5. UTI - UA consistent with UTI. - Rocephin 1g IV daily. - Await culture results. 6. Dark urine - Suspect cystitis with hematuria vs myoglobinuria. - Patient's CK was within normal limits, did have an elevated myoglobin level. - Patient denies muscle pain. - Repeating CK level to further evaluate for rhabdomyolysis given his recent falls. - Electrolytes including potassium and calcium are within normal limits. - Low suspicion for rhabdo at this time. - Will need to be cautious with fluid resuscitation given his CHF history. 7. CKD3B - Renally dose medications. - Baseline creatinine around 2.0. - Follows with [facility]. CODE: DNR Diet: Regular DVT: Eliquis Dispo: Full inpatient admission. Discussed plan with patient's sister in-law. Ordered Meds List CARVEDILOL TAB 6.25 MG (COREG), BID APIXABAN TAB 5 MG (ELIQUIS), BID FUROSEMIDE TAB 40 MG (LASIX), DAILY CEFTRIAXONE PREMIX IV BAG 1 GM/50ML, DAILY Progress Notes [facility] 11/25/2022 11:42 All Demographics Patient Name Age Sex Visit Number Admission Date/Time Attending Physician Date of Service Room and Bed Emergency Contact DARIN COULTER 1945 77 years Male [id number] 11/20/2022 20:45 PETROS MURRAY 11/20/2022 110-1 11/25/2022 11:25 Subjective Darin has been more confused starting last yesterday morning and persisting through today. He has been aggravated and combative with staff at times. He has required IM doses of medications twice to help calm him down while reorientation was provided. His ex- was at bedside for a short period yesterday to help with reorientation. He received a dose of Ativan this morning prior to rounds and is resting in bed. He has been up to the bathroom with staff and is less agitated. Objective General: Resting quietly. No apparent distress. Lungs: Normal respiratory effort. Skin: No rash or jaundice. Vital Signs: Last 24 Hours Date/Time BP (mm/Hg) BP Position/Site Heart Rate Resp Temp (C) Temp (F) SPO2% O2 Device Blood Sugar (mg/dL) Pain Score Weight (kg) Weight (lbs/ozs) 11/25/2022 11:19 101/55 Lying/Right Arm 70 20 36.2 Temporal 97.1 Temporal 91 % Room Air 21% 11/25/2022 06:59 110/65 Lying/Left Arm 76 18 36.6 Temporal 97.8 Temporal 98 % Room Air 21% 11/25/2022 00:07 119/87 Lying/Left Arm 70 18 36.9 Tympanic 98.4 Tympanic 98 % 0 11/24/2022 22:49 87 16 91 % 11/24/2022 11:30 112/81 Lying/Right Arm 73 18 36.7 Temporal 98 Temporal 95 % Room Air 21% 10 Lab Results: Last 24 Hours: No Labs Available Assessment Problem List Presence of prosthetic heart valve Total self-care deficit Vascular dementia Paroxysmal atrial fibrillation Congestive heart failure (disorder) Urinary tract infection Chronic kidney disease CKD stage 3B Pulmonary edema Dark-brown colored urine Recurrent falls Delirium Retention of urine Plan 1. Self-care deficit/Recurrent Falls - PT and OT consulted, appreciate their assistance and recommendations. - Patient tentatively accepted to [facility] on Saturday. 2. Cognitive impairment - Suspected vascular dementia - Have discussed extensively with patient's extended family that he will need closer monitoring and likely assistance with ADL's and IADL's. - Medication noncompliance has been occurring secondary to cognitive impairment. 3. Delirium - Suspect hospital-induced delirium, exacerbated by his underlying dementia. - Repeating UA to evaluate for recurrent infection. He is s/p 3 days of Rocephin which should have been adequate treatment for a UTI. 4. Urine retention - Schroeder catheter was removed yesterday but patient was unable to void on his own. He required straight-catheterization a few times after bladder volume had reached at least 400mL. This morning his bladder volume was 900mL so a Schroeder catheter was placed again. - Suspect BPH is contributing. Continue Tamsulosin 0.4mg and Finasteride 5mg PO daily. - Will attempt another trial without catheter after there has been sufficient bladder rest. 5. Paroxysmal afib - [id number] score of 4 - Anticoagulate with eliquis, renally dosed. Hold DAPT. 6. CHF - Continue oral furosemide. - Carvedilol 6.25mg BID, monitor for hypotension. 7. UTI - Rocephin 1g IV daily for 3 days, last dose today. 8. Dark urine - Resolved. 9. CKD3B - Renally dose medications. - Baseline creatinine around 2.0. - Follows with [facility]. CODE: DNR Diet: Regular DVT: Eliquis Dispo: Continue inpatient stay. Patient's current hospitalization is complicated by hospital delirium and urine retention, treating as above. Medications given this visit: Ordered & Completed Meds Table Ordered Medication Start Date/Time Dosage Route Frequency Status NORMAL SALINE 1000ML IV BAG 0.9 % 11/20/2022 17:35 INTRAVENOUS X1 completed FENTANYL INJ 50MCG/ML 1 ML VIAL 11/20/2022 17:35 25 MCG IV PUSH X1 completed ORPHENADRINE 60 MG/2ML (NORFLEX) VIAL 11/20/2022 17:53 30 MG IV PUSH X1 completed FENTANYL INJ 50MCG/ML 1 ML VIAL 11/20/2022 18:06 50 MCG IV PUSH X1 completed FUROSEMIDE VIAL 40 MG (LASIX VIAL) 11/20/2022 19:07 40 MG IV PUSH X1 completed APIXABAN TAB 5 MG (ELIQUIS) 11/20/2022 19:08 2.5 MG ORAL X1 completed CARVEDILOL TAB 6.25 MG (COREG) 11/20/2022 19:08 6.25 MG ORAL X1 completed Ceftriaxone/NS IVPB : 1GM/50ML 11/20/2022 20:31 100 ml/hr IV PIGGYBACK DAILY co mpleted PANTOPRAZOLE VIAL 40 MG (PROTONIX IV) 11/20/2022 19:14 40 MG IV PUSH DAILY completed CARVEDILOL TAB 6.25 MG (COREG) 11/21/2022 08:00 6.25 MG ORAL BID active APIXABAN TAB 5 MG (ELIQUIS) 11/21/2022 08:00 2.5 MG ORAL BID active FUROSEMIDE TAB 40 MG (LASIX) 11/21/2022 08:00 40 MG ORAL DAILY active CEFTRIAXONE PREMIX IV BAG 1 GM/50ML 11/21/2022 09:02 100 ml/hr INTRAVENOUS DAILY completed FUROSEMIDE VIAL 40 MG (LASIX VIAL) 11/21/2022 09:03 40 MG IV PUSH X1 completed SIMVASTATIN TAB 40 MG (ZOCOR) 11/21/2022 09:04 40 MG ORAL QHS completed POTASSIUM CHLORIDE TAB 20 MEQ (K-DUR) 11/21/2022 09:30 40 MEQ ORAL X1 completed FUROSEMIDE VIAL 40 MG (LASIX VIAL) 11/22/2022 08:57 40 MG IV PUSH DAILY completed ACETAMINOPHEN 500 MG TAB (TYLENOL) 11/22/2022 10:48 1000 MG ORAL TID active PEG POWDER UD (MIRALAX 17GM UNIT DOSE) 11/22/2022 17:49 17 GM ORAL DAILY active TAMSULOSIN CAP 0.4 MG (FLOMAX) 11/23/2022 14:54 0.4 MG ORAL QPM completed TAMSULOSIN CAP 0.4 MG (FLOMAX) 11/23/2022 15:30 0.4 MG ORAL DAILY active LORAZEPAM VIAL 2 MG/ML (ATIVAN VIAL) 11/24/2022 15:15 0.5 MG IM OPTIONS X1 completed LORAZEPAM VIAL 2 MG/ML (ATIVAN VIAL) 11/24/2022 15:46 0.5 MG IM OPTIONS X1 completed HALOPERIDOL 5 MG/ML (HALDOL 1CC VIAL) 11/24/2022 22:59 5 MG IM OPTIONS DAILY completed LORAZEPAM VIAL 2 MG/ML (ATIVAN VIAL) 11/24/2022 23:00 0.5 MG IM OPTIONS PRN Q4H active HALOPERIDOL 5 MG/ML (HALDOL 1CC VIAL) 11/24/2022 23:22 5 MG IM OPTIONS X1 completed FINASTERIDE TAB 5 MG (PROSCAR) 11/25/2022 09:03 5 MG ORAL DAILY active LORAZEPAM VIAL 2 MG/ML (ATIVAN VIAL) 11/25/2022 09:38 1 MG IM OPTIONS X1 completed HALOPERIDOL 5 MG/ML (HALDOL 1CC VIAL) 11/25/2022 09:38 5 MG IM OPTIONS PRN X1 active Discharge Medications: Discharge Medications Aspirin 81MG Oral Tablet, Enteric Coated Clopidogrel 75MG Oral Tablet Coreg 12.5MG Oral Tablet Lipitor 10MG Oral Tablet Ramipril 10MG Oral Capsule Tums 750 MG Oral Tablet, Chewable amLODIPine Besylate 5MG Oral Tablet [facility] 11/22/2022 10:47 All Demographics Patient Name Age Sex Visit Number Admission Date/Time Attending Physician Date of Service Room and Bed Emergency Contact DARIN COULTER Dali 1945 77 years Male [id number] 11/20/2022 20:45 PETROS D BUNCH 11/20/2022 110-1 11/22/2022 10:21 Subjective No events overnight. [id number], Natalia, is at bedside. Darin has been having some muscular pain in his right ribs and back. This has been improved with heat. Natalia has been at Darin's house working on cleaning it up and paying his overdue bills. Natalia and Darin agree that he would benefit from staying at a SNF for a few weeks while he gets better. Had a wolfgang discussion with Darin and Natalia regarding his ability to care for himself and be safe at home. Advised he no longer drive and that if he does go home, he will need someone checking in on him frequently. Objective Physical Exam General: Awake, alert, NAD. HEENT: EOMI, PERRLA, MMM. CV: RRR. No murmur, rub, or gallop. Lungs: Decreased breath sounds in the left lower lung. Otherwise normal respiratory effort. No wheezes or rales. Abd: Soft, nontender, no distension. Ext: 2+ edema to the hip. No cyanosis or clubbing. MSK: Mild right flank pain to palpation. Negative CVA tenderness Neuro: Oriented to person, place, date, and situation. No focal deficit. Psych: Normal mood. Poor judgement and insight. Vital Signs: Last 24 Hours Date/Time BP (mm/Hg) BP Position/Site Heart Rate Resp Temp (C) Temp (F) SPO2% O2 Device Blood Sugar (mg/dL) Pain Score Weight (kg) Weight (lbs/ozs) 11/22/2022 09:03 105/67 Lying/Right Arm 74 98 % Room Air 21% 11/22/2022 06:30 110/78 Lying/Left Arm 80 18 36.9 Temporal 98.4 Temporal 98 % Room Air 21% 10 11/22/2022 05:56 78.93 kg 174 lbs 11/22/2022 04:46 110/72 Lying/Right Arm 65 20 36.4 Temporal 97.5 Temporal 96 % Room Air 21% 11/22/2022 00:42 104/74 74 18 36.4 97.6 98 % Room Air 21% 11/21/2022 19:21 111/79 Sitting/Right Arm 76 18 36.6 Temporal 97.8 Temporal 99 % Room Air 21% 11/21/2022 16:59 118/88 Sitting/Right Arm 82 19 36.2 Temporal 97.2 Temporal 100 % Room Air 21% 3 11/21/2022 11:59 124/85 Sitting/Right Arm 84 17 37.3 Temporal 99.1 Temporal 96 % Room Air 21% Lab Results: Last 24 Hours Test Results Units Reference Range Ordered Collected Status CREATINE KINASE (CPK) TOTAL 11/22/2022 10:14 11/22/2022 10:14 registered WBC 4.84 K/uL 4.00-11.00 11/22/2022 00:00 11/22/2022 06:31 final RBC 3.51 L M/uL 4.20-5.40 11/22/2022 00:00 11/22/2022 06: 31 final HEMOGLOBIN 10.7 L g/dL 13.1-17.3 11/22/2022 00:00 11/22/2022 06:31 final HEMATOCRIT 32.7 L % 42.0-52.0 11/22/2022 00:00 11/22/2022 06:31 final MCV 93.2 fL 80.0-97.0 11/22/2022 00:00 11/22/2022 06:31 final MCH 30.5 pg 27.0-31.2 11/22/2022 00:00 11/22/2022 06:31 final MCHC 32.7 g/dL 32.0-36.0 11/22/2022 00:00 11/22/2022 06:31 final PLATELETS 103 L K/uL 150-400 11/22/2022 00:00 11/22/2022 06:31 final RDW 24.6 H % 11.6-14.8 11/22/2022 00:00 11/22/2022 06:31 final MPV 11.4 fL 9.3-12.9 11/22/2022 00:00 11/22/2022 06:31 final NEUT# 3.21 K/uL 2.00-6.90 11/22/2022 00:00 11/22/2022 06:31 final Neut% 66.3 % 37.0-80.0 11/22/2022 00:00 11/22/2022 06:31 final #LYMPH 1 K/uL 0.60-3.40 11/22/2022 00:00 11/22/2022 06:31 final %LYMPH 20.7 % 10.0-50.0 11/22/2022 00:00 11/22/2022 06:31 final #MONO 0.5 K/uL 0.0-0.9 11/22/2022 00:00 11/22/2022 06:31 final %MONO 9.3 % 0.0-12.0 11/22/2022 00:00 11/22/2022 06:31 final #EOS 0.2 K/uL 0.0-0.7 11/22/2022 00:00 11/22/2022 06:31 final %EOS 3.1 % 0.0-7.0 11/22/2022 00:00 11/22/2022 06:31 final #BASO 0 K/uL 0.0-0.2 11/22/2022 00:00 11/22/2022 06:31 final %BASO 0.4 % 0.00-2.50 11/22/2022 00:00 11/22/2022 06:31 final IG# 0.01 0.00-0.10 11/22/2022 00:00 11/22/2022 06:31 final IG% 0.2 0.00-0.50 11/22/2022 00:00 11/22/2022 06:31 final SODIUM 139 mmol/L 134-148 11/22/2022 00:00 11/22/2022 06:31 final POTASSIUM 3.6 mmol/L 3.5-5.3 11/22/2022 00:00 11/22/2022 06:31 final CHLORIDE 108 mmol/L 95-114 11/22/2022 00:00 11/22/2022 06:31 final CO2 20 L mEq/L 22-33 11/22/2022 00:00 11/22/2022 06:31 final ANION GAP 15 H 6-14 11/22/2022 00:00 11/22/2022 06:31 final GLUCOSE 102 mg/dL 70-110 11/22/2022 00:00 11/22/2022 06:31 final BUN 19 mg/dL 5-25 11/22/2022 00:00 11/22/2022 06:31 final CREATININE 1.86 H mg/dL 0.50-1.50 11/22/2022 00:00 11/22/2022 06:31 final CALCIUM 8.1 L mg/dL 8.3-10.4 11/22/2022 00:00 11/22/2022 06:31 final GLOBULIN 2.5 g/dL 2.3-3.5 11/22/2022 00:00 11/22/2022 06:31 final ALKALINE PHOS 78 U/L 35-130 11/22/2022 00:00 11/22/2022 06:31 final SGOT/AST 13 U/L 2-40 11/22/2022 00:00 11/22/2022 06:31 final SGPT/ALT 14 U/L 6-45 11/22/2022 00:00 11/22/2022 06:31 final TOTAL BILI 1 mg/dL 0.2-1.2 11/22/2022 00:00 11/22/2022 06:31 final TOTAL PROTEIN 5.2 L g/dL 6.0-8.3 11/22/2022 00:00 11/22/2022 06:31 final ALBUMIN 2.7 L g/dL 3.6-5.1 11/22/2022 00:00 11/22/2022 06:31 final OSMOLALITY 289 280- 295 11/22/2022 00:00 11/22/2022 06:31 final EGFR 35 L mL/min/1.73m2 >59 11/01 00:00 11/22/2022 06:31 final Cruz 587.5 H ng/ml 1.6-154.9 11/22/2022 00:00 11/22/2022 06:31 final SODIUM 139 mmol/L 134-148 11/21/2022 14:14 11/21/2022 14:14 final POTASSIUM 3.5 mmol/L 3.5-5.3 11/21/2022 14:14 11/21/2022 14:14 final CHLORIDE 110 mmol/L 95-114 11/21/2022 14:14 11/21/2022 14:14 final CO2 19 L mEq/L 22-33 11/21/2022 14:14 11/21/2022 14:14 final ANION GAP 14 6-14 11/21/2022 14:14 11/21/2022 14:14 final GLUCOSE 152 H mg/dL 70-110 11/21/2022 14:14 11/21/2022 14:14 final BUN 21 mg/dL 5-25 11/21/2022 14:14 11/21/2022 14:14 final CREATININE 2.06 H mg/dL 0.50-1.50 11/21/2022 14:14 11/21/2022 14:14 final CALCIUM 8.3 mg/dL 8.3-10.4 11/21/2022 14:14 11/21/2022 14:14 final GLOBULIN 2.4 g/dL 2.3-3.5 11/21/2022 14:14 11/21/2022 14:14 final ALKALINE PHOS 85 U/L 35-130 11/21/2022 14:14 11/21/2022 14:14 final SGOT/AST 13 U/L 2-40 11/21/2022 14:14 11/21/2022 14:14 final SGPT/ALT 15 U/L 6-45 11/21/2022 14:14 11/21/2022 14:14 final TOTAL BILI 1.2 mg/dL 0.2-1.2 11/21/2022 14:14 11/21/2022 14:14 final TOTAL PROTEIN 5.3 L g/dL 6.0-8.3 11/21/2022 14:14 11/21/2022 14:14 final ALBUMIN 2.9 L g/dL 3.6-5.1 11/21/2022 14:14 11/21/2022 14:14 final OSMOLALITY 293 280-295 11/21/2022 14:14 11/21/2022 14:14 final EGFR 31 L mL/min/1.73m2 >59 11/21/2022 14:14 11/21/2022 14:14 final CPK 87 U/L 26-174 11/21/2022 15:10 11/21/2022 14:14 final LACTIC ACID 14.5 mg/dL 4.5-19.8 11/21/2022 14:24 11/21/2022 14:14 final Assessment Problem List Presence of prosthetic heart valve Total self-care deficit Vascular dementia Paroxysmal atrial fibrillation Congestive heart failure (disorder) Urinary tract infection Chronic kidney disease CKD stage 3B Pulmonary edema Dark-brown colored urine Recurrent falls Plan 1. Self-care deficit/Recurrent Falls - Consulting PT and OT, appreciate their assistance and recommendations. - Patient will need a solid discharge plan with either home health and PT/OT or SNF. 2. Cognitive impairment - Suspected vascular dementia - Have discussed extensively with patient's extended family that he will need closer monitoring and likely assistance with ADL's and IADL's. - Medication noncompliance has been occurring secondary to cognitive impairment. 3. Paroxysmal afib - [id number] score of 4 - Anticoagulate with eliquis, renally dosed. Hold DAPT. 4. CHF - Schroeder placed. Diuresing with IV lasix. - Carvedilol 6.25mg BID, monitor for hypotension. 5. UTI - Rocephin 1g IV daily for 3 days. 6. Dark urine - Suspect cystitis with hematuria vs myoglobinuria. - Patient's CK was within normal limits, did have an elevated myoglobin level. - Repeat CK pending. - Electrolytes including potassium and calcium are within normal limits. - Low suspicion for rhabdo at this time. - Will need to be cautious with fluid resuscitation given his CHF history. 7. CKD3B - Renally dose medications. - Baseline creatinine around 2.0. - Follows with [facility]. CODE: DNR Diet: Regular DVT: Eliquis Dispo: Continue inpatient stay. Treating UTI, fluid overload from CHF, and working on strengthening with therapy. As stated above, patient will need a solid discharge plan before going home. Medications given this visit: Ordered & Completed Meds Table Ordered Medication Start Date/Time D [place] Route Frequency Status NORMAL SALINE 1000ML IV BAG 0.9 % 11/20/2022 17:35 INTRAVENOUS X1 completed FENTANYL INJ 50MCG/ML 1 ML VIAL 11/20/2022 17:35 25 MCG IV PUSH X1 completed ORPHENADRINE 60 MG/2ML (NORFLEX) VIAL 11/20/2022 17:53 30 MG IV PUSH X1 completed FENTANYL INJ 50MCG/ML 1 ML VIAL 11/20/2022 18:06 50 MCG IV PUSH X1 completed FUROSEMIDE VIAL 40 MG (LASIX VIAL) 11/20/2022 19:07 40 MG IV PUSH X1 completed APIXABAN TAB 5 MG (ELIQUIS) 11/20/2022 19:08 2.5 MG ORAL X1 completed CARVEDILOL TAB 6.25 MG (COREG) 11/20/2022 19:08 6.25 MG ORAL X1 completed Ceftriaxone/NS IVPB : 1GM/50ML 11/20/2022 20:31 100 ml/hr IV PIGGYBACK DAILY completed PANTOPRAZOLE VIAL 40 MG (PROTONIX IV) 11/20/2022 19:14 40 MG IV PUSH DAILY completed CARVEDILOL TAB 6.25 MG (COREG) 11/21/2022 08:00 6.25 MG ORAL BID active APIXABAN TAB 5 MG (ELIQUIS) 11/21/2022 08:00 2.5 MG ORAL BID active FUROSEMIDE TAB 40 MG (LASIX) 11/21/2022 08:00 40 MG ORAL DAILY active CEFTRIAXONE PREMIX IV BAG 1 GM/50ML 11/21/2022 09:02 100 ml/hr INTRAVENOUS DAILY active FUROSEMIDE VIAL 40 MG (LASIX VIAL) 11/21/2022 09:03 40 MG IV PUSH X1 completed SIMVASTATIN TAB 40 MG (ZOCOR) 11/21/2022 09:04 40 MG ORAL QHS completed POTASSIUM CHLORIDE TAB 20 MEQ (K-DUR) 11/21/2022 09:30 40 MEQ ORAL X1 completed FUROSEMIDE VIAL 40 MG (LASIX VIAL) 11/22/2022 08:57 40 MG IV PUSH DAILY active Discharge Medications: Discharge Medications Aspirin 81MG Oral Tablet, Enteric Coated Clopidogrel 75MG Oral Tablet Coreg 12.5MG Oral Tablet Lipitor 10MG Oral Tablet Ramipril 10MG Oral Capsule Tums 750 MG Oral Tablet, Chewable amLODIPine Besylate 5MG Oral Tablet [facility] 11/22/2022 13:38 Patient's mental status has improved but he continues to be weak. He continues to have some confusion/memory problems, but expresses wishes that are consistent with his previous wishes per Dr. Murray. PT/OT and RN have concerns about patient's safety if he returns home alone at this time.This nurse discussed possibility of SNF with Dr. Murray. He agrees that would be best for patient if pt will agree to it. Patient rrlqle-[id number]-fdf at bedside. ELEONORA states she is currently in the process of cleaning up patient's home, reconnecting home phone, and reestablishing gas service for hot water and heating. ELEONORA states that patient has been using a kerosene heater and prehaps is suffering from exposure to fumes. milieu therapist discussed possibility of SNF for strengthening and rehab with patient and ELEONORA. Patient agrees to SNF for 1-2 weeks as needed to regain his strength. ELEONORA states that patient has been using a kerosene heater and she believes that some of his weakness, fatigue, and altered mental status may be due to exposure to fumes. Continue to monitor cognitive status closely. Currently has Schroeder in place due to UTI, will discontinue prior to discharge. SAMSON Mello 11/26/2022 08:55 11/23 Notified by [facility] the y are not in network, may be in network starting November 28, Marla with check and notify with updates. Spoke to Fabio Amaya at [facility] to identify in network SNF providers. Verified $0 copay days 1-20, $196 copay days 21-39, 0$ copay days 40-100. 3 day hospital stay is not required. Discussed choices with patient, he chose: 1. [facility]; 2. [facility] [place]; 3. [facility]. Confirmed bed available at [facility]. Faxed clinicals. Zenia Cedillo visited patient to assess for admission to [facility] skilled unit. Zenia states that patient is accepted pending insurance authorization. Will need to complete care assessment prior to discharge. Received denial for inpatient, [facility] deems observation status more appropriate. Verified with Mimi at [facility] there is no limit for OBS days. Ref # [id number]. Dr. Murray agrees to P2P, he is scheduled to complete Saturday. Discussed with Chun what should be done regarding patient admission status (Acute vs. OBS vs. SWB). We contacted Khloe Adames for advice. Per Khloe, we will leave as is and fix it on Saturday. SAMSON Mello 11/24/2022 10:56 All Demographics Patient Name Age Sex Visit Number Admission Date/Time Attending Physician Date of Service Room and Bed Emergency Contact MARYLIN DARIN Mcnally 1945 77 years Male [id number] 11/20/2022 20:45 PETROS MURRAY 11/20/2022 110-1 11/24/2022 10:48 Subjective No events overnight. He has not been able to void on his own yet. Started tamsulosin yesterday. Has required 2 straight caths since schroeder removal yesterday. Patient is otherwise doing well. His right chest wall pain is improving. His urine color is clearing up. Minimal edema on exam. Tolerating therapy well. Does show intermittent confusion about where he is and why he is here. Objective General: Awake, alert, NAD. HEENT: EOMI, PERRLA, MMM. CV: RRR. No murmur, rub, or gallop. Lungs: CTAB. No wheezes, rales, or rhonchi. Abd: Soft, nontender, no distension. Ext: 1+ edema in the lower extremities. No cyanosis or clubbing. MSK: Moves all four extremities equally. Neuro: No focal deficit. Psych: Normal mood. Poor judgement and insight. Vital Signs: Last 24 Hours Date/Time BP (mm/Hg) BP Position/Site Heart Rate Resp Temp (C) Temp (F) SPO2% O2 Device Blood Sugar (mg/dL) Pain Score Weight (kg) Weight (lbs/ozs) 11/24/2022 07:14 132/86 Lying/Right Arm 80 18 36.2 Temporal 97.2 Temporal 98 % Room Air 21% 9 11/24/2022 04:28 110/85 Lying/Right Arm 96 16 36.7 Temporal 98 Temporal 99 % Room Air 21% 10 11/23/2022 23:24 112/81 Lying/Left Arm 84 16 37.2 Temporal 98.9 Temporal 98 % Room Air 21% 10 79.38 kg 175 lbs 11/23/2022 18:57 98/56 Lying/Left Arm 68 18 37.1 Temporal Scanning 98.8 Temporal Scanning 96 % Room Air 21% 11/23/2022 17:22 124/88 Sitting/Right Arm 59 14 36.8 Temporal Scanning 98.2 Temporal Scanning 97 % Room Air 21% 11/23/2022 12:46 114/76 80 37.2 98.9 Lab Results: Last 24 Hours Test Results Units Reference Range Ordered Collected Status WBC 4.27 K/uL 4.00-11.00 11/24/2022 05:00 11/24/2022 04:50 final RBC 3.87 L M/uL 4.20-5.40 11/24/2022 05:00 11/24/2022 04:50 final HEMOGLOBIN 11.6 L g/dL 13.1-17.3 11/24/2022 05:00 11/24/2022 04:50 final HEMATOCRIT 36.2 L % 42.0-52.0 11/24/2022 05:00 11/24/2022 04:50 final MCV 93.5 fL 80.0-97.0 11/24/2022 05:00 11/24/2022 04:50 final MCH 30 pg 27.0-31.2 11/24/2022 05:00 11/24/2022 04:50 final MCHC 32 g/dL 32.0-36.0 11/24/2022 05:00 11/24/2022 04:50 final PLATELETS 111 L K/uL 150-400 11/24/2022 05:00 11/24/2022 04:50 final RDW 24.1 H % 11.6-14.8 11/24/2022 05:00 11/24/2022 04:50 final MPV 10.9 fL 9.3-12.9 11/24/2022 05:00 11/24/2022 04:50 final NEUT# 2.55 K/uL 2.00- 6.90 11/24/2022 05:00 11/24/2022 04:50 final Neut% 59.7 % 37.0-80.0 11/24/2022 05:00 11/24/2022 04:50 final #LYMPH 0.99 K/uL 0.60-3.40 11/24/2022 05:00 11/24/2022 04:50 final %LYMPH 23.2 % 10.0-50.0 11/24/2022 05:00 11/24/2022 04:50 final #MONO 0.5 K/uL 0.0-0.9 11/24/2022 05:00 11/24/2022 04:50 final %MONO 12.2 H % 0.0-12.0 11/24/2022 05:00 11/24/2022 04:50 final #EOS 0.2 K/uL 0.0-0.7 11/24/2022 05:00 11/24/2022 04:50 final %EOS 3.5 % 0.0-7.0 11/24/2022 05:00 11/24/2022 04:50 final #BASO 0 K/uL 0.0-0.2 11/24/2022 05:00 11/24/2022 04:50 final %BASO 0.9 % 0.00-2.50 11/24/2022 05:00 11/24/2022 04:50 final IG# 0.02 0.00-0.10 11/24/2022 05:00 11/24/2022 04:50 final IG% 0.5 0.00-0.50 11/24/2022 05:00 11/24/2022 04:50 final SODIUM 137 mmol/L 134-148 11/24/2022 05:00 11/24/2022 04:50 final POTASSIUM 3.6 mmol/L 3.5-5.3 11/24/2022 05:00 11/24/2022 04:50 final CHLORIDE 103 mmol/L 95-114 11/24/2022 05:00 11/24/2022 04:50 final CO2 22 mEq/L 22-33 11/24/2022 05:00 11/24/2022 04:50 final ANION GAP 16 H 6-14 11/24/2022 05:00 11/24/2022 04:50 final GLUCOSE 100 mg/dL 70-110 11/24/2022 05:00 11/24/2022 04:50 final BUN 20 mg/dL 5-25 11/24/2022 05:00 11/24/2022 04:50 final CREATININE 1.76 H mg/dL 0.50-1.50 11/24/2022 05:00 11/24/2022 04:50 final CALCIUM 8 L mg/dL 8.3-10.4 11/24/2022 05:00 11/24/2022 04:50 final GLOBULIN 2.7 g/dL 2.3-3.5 11/24/2022 05:00 11/24/2022 04:50 final ALKALINE PHOS 85 U/L 35- 130 11/24/2022 05:00 11/24/2022 04:50 final SGOT/AST 12 U/L 2-40 11/24/2022 05:00 11/24/2022 04:50 final SGPT/ALT 14 U/L 6-45 11/24/2022 05:00 11/24/2022 04:50 final TOTAL BILI 0.7 mg/dL 0.2-1.2 11/24/2022 05:00 11/24/2022 04:50 final TOTAL PROTEIN 5.5 L g/dL 6.0-8.3 11/24/2022 05:00 11/24/2022 04:50 final ALBUMIN 2.8 L g/dL 3.6-5.1 11/24/2022 05:00 11/24/2022 04:50 final OSMOLALITY 286 280-295 11/24/2022 05:00 11/24/2022 04:50 final EGFR 37 L mL/min/1.73m2 >59 11/24/2022 05:00 11/24/2022 04:50 final Assessment Problem List Presence of prosthetic heart valve Total self-care deficit Vascular dementia Paroxysmal atrial fibrillation Congestive heart failure (disorder) Urinary tract infection Chronic kidney disease CKD stage 3B Pulmonary edema Dark-brown colored urine Recurrent falls Plan 1. Self-care deficit/Recurrent Falls - PT and OT consulted, appreciate their assistance and recommendations. - Patient tentatively [facility]. 2. Cognitive impairment - Suspected vascular dementia - Have discussed extensively with patient's extended family that he will need closer monitoring and likely assistance with ADL's and IADL's. - Medication noncompliance has been occurring secondary to cognitive impairment. 3. Paroxysmal afib - [id number] score of 4 - Anticoagulate with eliquis, renally dosed. Hold DAPT. 4. CHF - Continue oral furosemide. - Carvedilol 6.25mg BID, monitor for hypotension. 5. UTI - Rocephin 1g IV daily for 3 days, last dose today. 6. Dark urine - Resolved. 7. CKD3B - Renally dose medications. - Baseline creatinine around 2.0. - Follows with [facility]. CODE: DNR Diet: Regular DVT: Eliquis Dispo: Continue inpatient stay. Plan to discharge to [facility] on Saturday. Medications given this visit: Ordered & Completed Meds Table Ordered Medication Start Date/Time Dosage Route Frequency Status NORMAL SALINE 1000ML IV BAG 0.9 % 11/20/2022 17:35 INTRAVENOUS X1 completed FENTANYL INJ 50MCG/ML 1 ML VIAL 11/20/2022 17:35 25 MCG IV PUSH X1 completed ORPHENADRINE 60 MG/2ML (NORFLEX) VIAL 11/20/2022 17:53 30 MG IV PUSH X1 completed FENTANYL INJ 50MCG/ML 1 ML VIAL 11/20/2022 18:06 50 MCG IV PUSH X1 completed FUROSEMIDE VIAL 40 MG (LASIX VIAL) 11/20/2022 19:07 40 MG IV PUSH X1 completed APIXABAN TAB 5 MG (ELIQUIS) 11/20/2022 19:08 2.5 MG ORAL X1 completed CARVEDILOL TAB 6.25 MG (COREG) 11/20/2022 19:08 6.25 MG ORAL X1 completed Ceftriaxone/NS IVPB : 1GM/50ML 11/20/2022 20:31 100 ml/hr IV PIGGYBACK DAILY completed PANTOPRAZOLE VIAL 40 MG (PROTONIX IV) 11/20/2022 19:14 40 MG IV PUSH DAILY completed CARVEDILOL TAB 6.25 MG (COREG) 11/21/2022 08:00 6.25 MG ORAL BID active APIXABAN TAB 5 MG (ELIQUIS) 11/21/2022 08:00 2.5 MG ORAL BID active FUROSEMIDE TAB 40 MG (LASIX) 11/21/2022 08:00 40 MG ORAL DAILY active CEFTRIAXONE PREMIX IV BAG 1 GM/50ML 11/21/2022 09:02 100 ml/hr INTRAVENOUS DAILY completed FUROSEMIDE VIAL 40 MG (LASIX VIAL) 11/21/2022 09:03 40 MG IV PUSH X1 completed SIMVASTATIN TAB 40 MG (ZOCOR) 11/21/2022 09:04 40 MG ORAL QHS completed POTASSIUM CHLORIDE TAB 20 MEQ (K-DUR) 11/21/2022 09:30 40 MEQ ORAL X1 completed FUROSEMIDE VIAL 40 MG (LASIX VIAL) 11/22/2022 08:57 40 MG IV PUSH DAILY completed ACETAMINOPHEN 500 MG TAB (TYLENOL) 11/22/2022 10:48 1000 MG ORAL TID active PEG POWDER UD (MIRALAX 17GM UNIT DOSE) 11/22/2022 17:49 17 GM ORAL DAILY active TAMSULOSIN CAP 0.4 MG (FLOMAX) 11/23/2022 14:54 0.4 MG ORAL QPM completed TAMSULOSIN CAP 0.4 MG (FLOMAX) 11/23/2022 15:30 0.4 MG ORAL DAILY active Discharge Medications: Discharge Medications Aspirin 81MG Oral Tablet, Enteric Coated Clopidogrel 75MG Oral Tablet Coreg 12.5MG Oral Tablet Lipitor 10MG Oral Tablet Ramipril 10MG Oral Capsule Tums 750 MG Oral Tablet, Chewable amLODIPine Besylate 5MG Oral Tablet [facility] 11/23/2022 16:54 Patient mental status improved again today. Arrangements being made for SNF. He is conditionally accepted to [facility] for Saturday, November 26, 2022 pending insurance authorization. This nurse has spoken with [facility] and learned that patient has coverage for SNF with no copay for days 1-20. SNF to verify and report back Saturday. Patient's Schroeder was dc'd today and he was unable to urinate. Flowmax has been ordered and administered. It is too soon to know results of Flowmax. May require reinsertion of Schroeder Catheter if urinary retention persists. [facility] 11/26/2022 13:49 Call received from Mahi at [facility]. We are still currently waiting on patients insurance to approve skilled stay. All discharge instructions complete except medication reconciliation. As soon as final acceptance with insurance, this nurse will notify Dr. Murray to complete. Care assessment completed this morning by this RN. No further issues noted. [facility] 11/21/2022 13:56 11/21/2022 13:18 All Demographics Patien t Name Age Sex Visit Number Admission Date/Time Attending Physician Date of Service Room and Bed Emergency Contact DARIN COULTER 1945 77 years Male [id number] 11/20/2022 20:45 PETROS MURRAY 11/20/2022 110-1 Patient Overview: Patient transported to ER via EMS after friend found him on the floor. EMS reported a bad smell in the house. Current Status: Patient is 77 year old male admitted observation to Dr. Murray. Dr. Murray changed to inpatient at 0900 today. Patient is very confused and unable to provide health history or contact information for emergency contact at this time. Patient is being treated for UTI, CHF, and altered mental status. It is believed that patient's former yhjhxf-pd-jki is his manager contact Previous Living Situation: Patient's neighbor, Rojas Camacho, visited the hospital today and left his phone number [phone]; confirms that patient's former gimnbw-qu-ria is his emergency contact. He states that her name is Natalia Gabriel and her is the tobacco packing machine operator of [employer]. He does not have her phone number, but states that she is supposed to visit patient in the hospital this afternoon. Nurse contacted Dr. Murray's office for family contact information. Former ELEONORA, Natalia [phone]; ex , Shayna [phone]. Barriers to Discharge: 1.Patient not medically stable to discharge at this time. 2. Altered mental status 3. Patient safety 4. Home medications have not been refilled >1 year, may require more in-home assistance. Discharge Plan: 1. Discharge home when medically and mentally stable. 2. Ensure patient mental status allows for him to live alone safely. 3. Consider possibility of placement if mental status does not adequately improve. 4. Verify patient has transportation to attend appointments and picker and sorter load and unload medications. 5. Contact family members for further information regarding patient safety at home and his access to transportation. Primary Care Provider: Dr. Murray and [facility] Pharmacy: [facility] (If applicable): [employer] [facility] 11/24/2022 10:47 All Demographics Patient Name Age Sex Visit Number Admission Date/Time Attending Physician Date of Service Room and Bed Emergency Contact DARIN COULTER 1945 77 years Male [id number] 11/20/2022 20:45 PETROS MURRAY 11/20/2022 110-1 11/24/2022 10:34 Subjective No events overnight. Patient has been tentatively accepted at [facility]. He is diuresing well with Lasix. His Schroeder catheter is still in place so we will try and remove that today and see if he can void on his own. I do suspect a component of BPH. His last day of Rocephin is today for his UTI. Patient still shows evidence of cognitive impairment but seems less confused today. He has had some right-sided chest wall pain from when he fell. Palpation of the area does not reproduce his pain. He describes it as sharp and achey in quality. Objective General: Awake, alert, NAD. HEENT: EOMI, PERRLA, MMM. CV: RRR. No murmur, rub, or gallop. Lungs: Decreased breath sounds in the left lower lung. Otherwise normal respiratory effort. No wheezes or rales. Abd: Soft, nontender, no distension. Ext: 1+ edema in the lower extremities. No cyanosis or clubbing. MSK: Moves all four extremities equally. Neuro: Oriented to person, place, date, and situation. No focal deficit. Psych: Normal mood. Poor judgement and insight. Vital Signs: Last 24 Hours Date/Time BP (mm/Hg) BP Position/Site Heart Rate Resp Temp (C) Temp (F) SPO2% O2 Device Blood Sugar (mg/dL) Pain Score Weight (kg) Weight (lbs/ozs) 11/24/2022 07:14 132/86 Lying/Right Arm 80 18 36.2 Temporal 97.2 Temporal 98 % Room Air 21% 9 11/24/2022 04:28 110/85 Lying/Right Arm 96 16 36.7 Temporal 98 Temporal 99 % Room Air 21% 10 11/23/2022 23:24 112/81 Lying/Left Arm 84 16 37.2 Temporal 98.9 Temporal 98 % Room Air 21% 10 79.38 kg 175 lbs 11/23/2022 18:57 98/56 Lying/Left Arm 68 18 37.1 Temporal Scanning 98.8 Temporal Scanning 96 % Room Air 21% 11/23/2022 17:22 124/88 Sitting/Right Arm 59 14 36.8 Temporal Scanning 98.2 Temporal Scanning 97 % Room Air 21% 11/23/2022 12:46 114/76 80 37 .2 98.9 Lab Results: Last 24 Hours Test Results Units Reference Range Ordered Collected Status WBC 4.27 K/uL 4.00-11.00 11/24/2022 05:00 11/24/2022 04:50 final RBC 3.87 L M/uL 4.20-5.40 11/24/2022 05:00 11/24/2022 04:50 final HEMOGLOBIN 11.6 L g/dL 13.1-17.3 11/24/2022 05:00 11/24/2022 04:50 final HEMATOCRIT 36.2 L % 42.0-52.0 11/24/2022 05:00 11/24/2022 04:50 final MCV 93.5 fL 80.0-97.0 11/24/2022 05:00 11/24/2022 04:50 final MCH 30 pg 27.0-31.2 11/24/2022 05:00 11/24/2022 04:50 final MCHC 32 g/dL 32.0-36.0 11/24/2022 05:00 11/24/2022 04:50 final PLATELETS 111 L K/uL 150-400 11/24/2022 05:00 11/24/2022 04:50 final RDW 24.1 H % 11.6-14.8 11/24/2022 05:00 11/24/2022 04:50 final MPV 10.9 fL 9.3-12.9 11/24/2022 05:00 11/24/2022 04:50 final NEUT# 2.55 K/uL 2.00- 6.90 11/24/2022 05:00 11/24/2022 04:50 final Neut% 59.7 % 37.0-80.0 11/24/2022 05:00 11/24/2022 04:50 final #LYMPH 0.99 K/uL 0.60-3.40 11/24/2022 05:00 11/24/2022 04:50 final %LYMPH 23.2 % 10.0-50.0 11/24/2022 05:00 11/24/2022 04:50 final #MONO 0.5 K/uL 0.0-0.9 11/24/2022 05:00 11/24/2022 04:50 final %MONO 12.2 H % 0.0-12.0 11/24/2022 05:00 11/24/2022 04:50 final #EOS 0.2 K/uL 0.0-0.7 11/24/2022 05:00 11/24/2022 04:50 final %EOS 3.5 % 0.0-7.0 11/24/2022 05:00 11/24/2022 04:50 final #BASO 0 K/uL 0.0-0.2 11/24/2022 05:00 11/24/2022 04:50 final %BASO 0.9 % 0.00-2.50 11/24/2022 05:00 11/24/2022 04:50 final IG# 0.02 0.00-0.10 11/24/2022 05:00 11/24/2022 04:50 final IG% 0.5 0.00-0.50 11/24/2022 05:00 11/24/2022 04:50 final SODIUM 137 mmol/L 134-148 11/24/2022 05:00 11/24/2022 04:50 final POTASSIUM 3.6 mmol/L 3.5-5.3 11/24/2022 05:00 11/24/2022 04:50 final CHLORIDE 103 mmol/L 95-114 11/24/2022 05:00 11/24/2022 04:50 final CO2 22 mEq/L 22-33 11/24/2022 05:00 11/24/2022 04:50 final ANION GAP 16 H 6-14 11/24/2022 05:00 11/24/2022 04:50 final GLUCOSE 100 mg/dL 70-110 11/24/2022 05:00 11/24/2022 04:50 final BUN 20 mg/dL 5-25 11/24/2022 05:00 11/24/2022 04:50 final CREATININE 1.76 H mg/dL 0.50-1.50 11/24/2022 05:00 11/24/2022 04:50 final CALCIUM 8 L mg/dL 8.3-10.4 11/24/2022 05:00 11/24/2022 04:50 final GLOBULIN 2.7 g/dL 2.3-3.5 11/24/2022 05:00 11/24/2022 04:50 final ALKALINE PHOS 85 U/L 35- 130 11/24/2022 05:00 11/24/2022 04:50 final SGOT/AST 12 U/L 2-40 11/24/2022 05:00 11/24/2022 04:50 final SGPT/ALT 14 U/L 6-45 11/24/2022 05:00 11/24/2022 04:50 final TOTAL BILI 0.7 mg/dL 0.2-1.2 11/24/2022 05:00 11/24/2022 04:50 final TOTAL PROTEIN 5.5 L g/dL 6.0-8.3 11/24/2022 05:00 11/24/2022 04:50 final ALBUMIN 2.8 L g/dL 3.6-5.1 11/24/2022 05:00 11/24/2022 04:50 final OSMOLALITY 286 280-295 11/24/2022 05:00 11/24/2022 04:50 final EGFR 37 L mL/min/1.73m2 >59 11/24/2022 05:00 11/24/2022 04:50 final Assessment Problem List Presence of prosthetic heart valve Total self-care deficit Vascular dementia Paroxysmal atrial fibrillation Congestive heart failure (disorder) Urinary tract infection Chronic kidney disease CKD stage 3B Pulmonary edema Dark-brown colored urine Recurrent falls Plan 1. Self-care deficit/Recurrent Falls - PT and OT consulted, appreciate their assistance and recommendations. - Patient tentatively accepted to [facility] on Saturday. 2. Cognitive impairment - Suspected vascular dementia - Have discussed extensively with patient's extended family that he will need closer monitoring and likely assistance with ADL's and IADL's. - Medication noncompliance has been occurring secondary to cognitive impairment. 3. Paroxysmal afib - [id number] score of 4 - Anticoagulate with eliquis, renally dosed. Hold DAPT. 4. CHF - Remove Schroeder today. Continue oral furosemide. - Carvedilol 6.25mg BID, monitor for hypotension. 5. UTI - Rocephin 1g IV daily for 3 days, last dose today. 6. Dark urine - Resolved. 7. CKD3B - Renally dose medications. - Baseline creatinine around 2.0. - Follows with [facility]. CODE: DNR Diet: Regular DVT: Eliquis Dispo: Continue inpatient stay. Plan to discharge to [facility] on Saturday. Medications given this visit: Ordered & Completed Meds Table Ordered Medication Start Date/Time Dosage Route Frequency Status NORMAL SALINE 1000ML IV BAG 0.9 % 11/20/2022 17:35 INTRAVENOUS X1 completed FENTANYL INJ 50MCG/ML 1 ML VIAL 11/20/2022 17:35 25 MCG IV PUSH X1 completed ORPHENADRINE 60 MG/2ML (NORFLEX) VIAL 11/20/2022 17:53 30 MG IV PUSH X1 completed FENTANYL INJ 50MCG/ML 1 ML VIAL 11/20/2022 18:06 50 MCG IV PUSH X1 completed FUROSEMIDE VIAL 40 MG (LASIX VIAL) 11/20/2022 19:07 40 MG IV PUSH X1 completed APIXABAN TAB 5 MG (ELIQUIS) 11/20/2022 19:08 2.5 MG ORAL X1 completed CARVEDILOL TAB 6.25 MG (COREG) 11/20/2022 19:08 6.25 MG ORAL X1 completed Ceftriaxone/NS IVPB : 1GM/50ML 11/20/2022 20:31 100 ml/hr IV PIGGYBACK DAILY completed PANTOPRAZOLE VIAL 40 MG (PROTONIX IV) 11/20/2022 19:14 40 MG IV PUSH DAILY completed CARVEDILOL TAB 6.25 MG (COREG) 11/21/2022 08:00 6.25 MG ORAL BID active APIXABAN TAB 5 MG (ELIQUIS) 11/21/2022 08:00 2.5 MG ORAL BID active FUROSEMIDE TAB 40 MG (LASIX) 11/21/2022 08:00 40 MG ORAL DAILY active CEFTRIAXONE PREMIX IV BAG 1 GM/50ML 11/21/2022 09 :02 100 ml/hr INTRAVENOUS DAILY completed FUROSEMIDE VIAL 40 MG (LASIX VIAL) 11/21/2022 09:03 40 MG IV PUSH X1 completed SIMVASTATIN TAB 40 MG (ZOCOR) 11/21/2022 09:04 40 MG ORAL QHS completed POTASSIUM CHLORIDE TAB 20 MEQ (K-DUR) 11/21/2022 09:30 40 MEQ ORAL X1 completed FUROSEMIDE VIAL 40 MG (LASIX VIAL) 11/22/2022 08:57 40 MG IV PUSH DAILY completed ACETAMINOPHEN 500 MG TAB (TYLENOL) 11/22/2022 10:48 1000 MG ORAL TID active PEG POWDER UD (MIRALAX 17GM UNIT DOSE) 11/22/2022 17:49 17 GM ORAL DAILY active TAMSULOSIN CAP 0.4 MG (FLOMAX) 11/23/2022 14:54 0.4 MG ORAL QPM completed TAMSULOSIN CAP 0.4 MG (FLOMAX) 11/23/2022 15:30 0.4 MG ORAL DAILY active Discharge Medications: Discharge Medications Aspirin 81MG Oral Tablet, Enteric Coated Clopidogrel 75MG Oral Tablet Coreg 12.5MG Oral Tablet Lipitor 10MG Oral Tablet Ramipril 10MG Oral Capsule Tums 750 MG Oral Tablet, Chewable amLODIPine Besylate 5MG Oral Tablet SAMSON Mello 11/27/2022 09:26 All Demographics Patient Name Age Sex Visit Number Admission Date/Time Attending Physician Date of Service Room and Bed Emergency Contact DARIN COULTER 1945 77 years Male [id number] 11/20/2022 20:45 PETROS MURRAY 11/20/2022 110-1 11/27/2022 09:23 Darin is scheduled to discharge to [facility] today. This nurse received confirmation from Zenia that auth was approved my [facility]. Patient picker and sorter load and unload is scheduled between [id number]. A care assessment has been completed and faxed to facility. Dr. Murray rounded and spoke with patient and updated on plan on care. No concerns voiced by patient. Patient will maintain schroeder until Dr. Murray orders for this to be removed. Patient medication reconciliation completed and medications sent to [facility] per facility request. Family has been updated on plan of care. No further issues noted. Patient will discharge this morning. SAMSON Mello 11/26/2022 11:28 All Demographics Patient Name Age Sex Visit Number Admission Date/Time Attending Physician Date of Service Room and Bed Emergency Contact DARIN COULTER 1945 77 years Male [id number] 11/20/2022 20:45 PETROS MURRAY 11/20/2022 110-1 11/26/2022 10:52 Subjective Darin was confused overnight. He removed his IV and has attempted to remove his schroeder catheter. He had a low-dose of haloperidol this morning and is more calm. On rounds this morning he is laying in bed. Alert and oriented to person, place, and situation but could not tell me the current year. He states his right chest-wall pain has improved. He was unable to void on in his own yesterday and forcefully removed his catheter yesterday morning. This was replaced without issue. He does not recall being agitated earlier this morning or last night. He does well with reorientation. Discussed plan of care with his nhxhxn-ae-oyq, Natalia, this morning. Objective General: Awake, alert, NAD. Laying in bed. HEENT: MMM CV: RRR. No murmur, rub, or gallop. Lungs: Clear to auscultation bilaterally. No wheezes, rales, or rhonchi. Normal respiratory effort. Abdomen: Soft, nontender, no distension. Ext: 1+ edema in the bilateral lower extremities. Compression stockings in place. Skin: No rash or jaundice. Vital Signs: Last 24 Hours Date/Time BP (mm/Hg) BP Position/Site Heart Rate Resp Temp (C) Temp (F) SPO2% O2 Device Blood Sugar (mg/dL) Pain Score Weight (kg) Weight (lbs/ozs) 11/26/2022 07:00 125/82 Sitting/Right Arm 82 20 36.6 Temporal 97.8 Temporal 96 % Room Air 21% 0 11/26/2022 04:12 109/66 Lying/Right Arm 81 20 36.4 Temporal 97.6 Temporal 98 % Room Air 21% 11/25/2022 23:36 80 20 37.2 Temporal 98.9 Temporal 95 % Room Air 21% 11/25/2022 19:36 118/82 Standing/Left Arm 114 20 38.2 Temporal 100.7 Temporal 95 % Room Air 21% 72.35 kg 159.5 lbs 11/25/2022 15:49 Patient Refused 11/25/2022 11:19 101/55 Lying/Right Arm 70 20 36.2 Temporal 97.1 Temporal 91 % Room Air 21% Lab Results: Last 24 Hours Test Results Units Reference Range Ordered Collected Status WBC 8.99 K/uL 4.00-11.00 11/26/2022 00:00 11/26/2022 07:00 final RBC 3.94 L M/uL 4.20-5.40 11/26/2022 00:00 11/26/2022 07:00 final HEMOGLOBIN 11.9 L g/dL 13.1-17.3 11/26/2022 00:00 11/26/2022 07:00 final HEMATOCRIT 37.4 L % 42.0-52.0 11/26/2022 00:00 11/26/2022 07:00 final MCV 94.9 fL 80.0-97.0 11/26/2022 00:00 11/26/2022 07:00 final MCH 30.2 pg 27.0-31.2 11/26/2022 00:00 11/26/2022 07:00 final MCHC 31.8 L g/dL 32.0-36.0 11/26/2022 00:00 11/26/2022 07:00 final PLATELETS 97 L K/uL 150-400 11/26/2022 00:00 11/26/2022 07:00 final RDW 23.6 H % 11.6-14.8 11/26/2022 00:00 11/26/2022 07:00 final MPV 10.6 fL 9.3-12.9 11/26/2022 00:00 11/26/2022 07:00 final NEUT# 7.34 H K/uL 2.00-6.90 11/26/2022 00:00 11/26/2022 07:00 final Neut% 81.7 H % 37.0-80.0 11/26/2022 00:00 11/26/2022 07:00 final #LYMPH 0.88 K/uL 0.60-3.40 11/26/2022 00:00 11/26/2022 07:00 final %LYMPH 9.8 L % 10.0-50.0 11/26/2022 00:00 11/26/2022 07:00 final #MONO 0.7 K/uL 0.0-0.9 11/26/2022 00:00 11/26/2022 07:00 final %MONO 7.8 % 0.0-12.0 11/26/2022 00:00 11/26/2022 07:00 final #EOS 0 K/uL 0.0-0.7 11/26/2022 00:00 11/26/2022 07:00 final %EOS 0.3 % 0.0-7.0 11/26/2022 00:00 11/26/2022 07:00 final #BASO 0 K/uL 0.0-0.2 11/26/2022 00:00 11/26/2022 07:00 final %BASO 0.2 % 0.00-2.50 11/26/2022 00:00 11/26/2022 07:00 final IG# 0.02 0.00-0.10 11/26/2022 00:00 11/26/2022 07:00 final IG% 0.2 0.00-0.50 11/26/2022 00:00 11/26/2022 07:00 final SODIUM 135 mmol/L 134-148 11/26/2022 00:00 11/26/2022 07:00 final POTASSIUM 3.7 mmol/L 3.5-5.3 11/26/2022 00:00 11/26/2022 07:00 final CHLORIDE 101 mmol/L 95-114 11/26/2022 00:00 11/26/2022 07:00 final CO2 22 mEq/L 22-33 11/26/2022 00:00 11/26/2022 07:00 final ANION GAP 16 H 6-14 11/26/2022 00:00 11/26/2022 07:00 final GLUCOSE 113 H mg/dL 70-110 11/26/2022 00:00 11/26/2022 07:00 final BUN 20 mg/dL 5-25 11/26/2022 00:00 11/26/2022 07:00 final CREATININE 1.78 H mg/dL 0.50-1.50 11/26/2022 00:00 11/26/2022 07:00 final CALCIUM 8.5 mg/dL 8.3-10.4 11/26/2022 00:00 11/26/2022 07:00 final GLOBULIN 2.9 g/dL 2.3-3.5 11/26/2022 00:00 11/26/2022 07:00 final ALKALINE PHOS 88 U/L 35-130 11/26/2022 00:00 11/26/2022 07:00 final SGOT/AST 22 U/L 2-40 11/26/2022 00:00 11/26/2022 07:00 final SGPT/ALT 19 U/L 6-45 11/26/2022 00:00 11/26/2022 07:00 final TOTAL BILI 1.2 mg/dL 0.2-1.2 11/26/2022 00:00 11/26/2022 07:00 final TOTAL PROTEIN 5.9 L g/dL 6.0-8.3 11/26/2022 00:00 11/26/2022 07:00 final ALBUMIN 3 L g/dL 3.6-5.1 11/26/2022 00:00 11/26/2022 07:00 final OSMOLALITY 282 280-295 11/26/2022 00:00 11/26/2022 07:00 final EGFR 37 L mL/min/1.73m2 >59 11/26/2022 00:00 11/26/2022 07:00 final PSA TOTAL 3.6 ng/mL 0.0-4.0 11/26/2022 00:00 11/26/2022 07:00 final Color Red A Colorless-Lt. Yellow 11/25/2022 11:36 11/25/2022 15:21 final Appear Cloudy A Clear 11/25/2022 11:36 11/25/2022 15:21 final Glucose. Negative Negative 11/25/2022 11:36 11/25/2022 15:21 final Bilirubin Negative Negative 11/25/2022 11:36 11/25/2022 15:21 final Icto N/A A Negative 11/25/2022 11:36 11/25/2022 15:21 final Ketones Negative Negative 11/25/2022 11:36 11/25/2022 15:21 final Sp.[place] 1.015 1.000-1.030 11/25/2022 11:36 11/25/2022 15:21 final Blood 3+ A Negative 11/25/2022 11:36 11/25/2022 15:21 final pH 7 5-8.5 11/25/2022 11:36 11/25/2022 15:21 final Protein 3+ A Negative 11/25/2022 11:36 11/25/2022 15:21 final Urobil 0.2 E.U./dL A 0.2-1.0 11/25/2022 11:36 11/25/2022 15:21 final Nitrite Negative Negative 11/25/2022 11:36 11/25/2022 15:21 final Leukocytes 1+ A Negative 11/25/2022 11:36 11/25/2022 15:21 final U.WBC TNTC A 11/25/2022 11:36 11/25/2022 15:21 final U.RBC TNTC A 11/25/2022 11:36 11/25/2022 15:21 final Bacteria 1+ A 11/25/2022 11:36 11/25/2022 15:21 final Epithelial None A 11/25/2022 11:36 11/25/2022 15:21 final Mucus Negative A 11/25/2022 11:36 11/25/2022 15:21 final Urine Crystals None Seen 11/25/2022 11:36 11/25/2022 15:21 final Ur Casts None Seen 11/25/2022 11:36 11/25/2022 15:21 final Urine Yeast Not Present 11/25/2022 11:36 11/25/2022 15:21 final Urine Volume Sufficient 11/25/2022 11:36 11/25/2022 15:21 final Other See Comment A 11/25/2022 11:36 11/25/2022 15:21 final URINE CULTURE 11/25/2022 15:54 11/25/2022 15:21 registered Assessment Problem List Presence of prosthetic heart valve Total self-care deficit Vascular dementia Paroxysmal atrial fibrillation Congestive heart failure (disorder) Urinary tract infection Chronic kidney disease CKD stage 3B Pulmonary edema Dark-brown colored urine Recurrent falls Delirium Retention of urine Plan 1. Self-care deficit/Recurrent Falls - PT and OT consulted, appreciate their assistance and recommendations. - Patient will need SNF or rehab services. 2. Cognitive impairment - Suspected vascular dementia - Have discussed extensively with patient's extended family that he will need closer monitoring and likely assistance with ADL's and IADL's. - Medication noncompliance has been occurring secondary to cognitive impairment. 3. Delirium - Suspect hospital-induced delirium, exacerbated by his underlying dementia. - 1g haloperidol PRN for agitation, maximum of 5g/daily. 4. Urine retention - Schroeder catheter was forcefully removed by the patient yesterday during a period of confusion. It was replaced and he has continued to have adequate urine output. - Suspect BPH is contributing. Continue Tamsulosin 0.4mg and Finasteride 5mg PO daily. - Will attempt another trial without catheter after there has been sufficient bladder rest. 5. Paroxysmal afib - [id number] score of 4 - Anticoagulate with eliquis, renally dosed. 6. CHF - Continue oral furosemide. - Carvedilol 6.25mg BID, monitor for hypotension. 7. UTI - Repeat UA with evidence of recurrent infection. 1g of Rocephin given yesterday. Transitioning to nitrofurantoin today based off of prior culture results. Will continue treatment for a total of 10 days. 8. Dark urine - Resolved. 9. CKD3B - Renally dose medications. - Baseline creatinine around 2.0. - Follows with [facility]. CODE: DNR Diet: Regular DVT: Eliquis Dispo: Continue inpatient stay. Discharge planning. Medications given this visit: Ordered & Completed Meds Table Ordered Medication Start Date/Time Dosage Route Frequency Status NORMAL SALINE 1000ML IV BAG 0.9 % 11/20/2022 17:35 INTRAVENOUS X1 completed FENTANYL INJ 50MCG/ML 1 ML VIAL 17:35 25 MCG IV PUSH X1 completed ORPHENADRINE 60 MG/2ML (NORFLEX) VIAL 11/20/2022 17:53 30 MG IV PUSH X1 completed FENTANYL INJ 50MCG/ML 1 ML VIAL 11/20/2022 18:06 50 MCG IV PUSH X1 completed FUROSEMIDE VIAL 40 MG (LASIX VIAL) 11/20/2022 19:07 40 MG IV PUSH X1 completed APIXABAN TAB 5 MG (ELIQUIS) 11/20/2022 19:08 2.5 MG ORAL X1 completed CARVEDILOL TAB 6.25 MG (COREG) 11/20/2022 19:08 6.25 MG ORAL X1 completed Ceftriaxone/NS IVPB : 1GM/50ML 11/20/2022 20:31 100 ml/hr IV PIGGYBACK DAILY completed PANTOPRAZOLE VIAL 40 MG (PROTONIX IV) 11/20/2022 19:14 40 MG IV PUSH DAILY completed CARVEDILOL TAB 6.25 MG (COREG) 11/21/2022 08:00 6.25 MG ORAL BID active APIXABAN TAB 5 MG (ELIQUIS) 11/21/2022 08:00 2.5 MG ORAL BID active FUROSEMIDE TAB 40 MG (LASIX) 11/21/2022 08:00 40 MG ORAL DAILY active CEFTRIAXONE PREMIX IV BAG 1 GM/50ML 11/21/2022 09:02 100 ml/hr INTRAVENOUS DAILY completed FUROSEMIDE VIAL 40 MG (LASIX VIAL) 11/21/2022 09:03 40 MG IV PUSH X1 completed SIMVASTATIN TAB 40 MG (ZOCOR) 09:04 40 MG ORAL QHS completed POTASSIUM CHLORIDE TAB 20 MEQ (K-DUR) 11/21/2022 09:30 40 MEQ ORAL X1 completed FUROSEMIDE VIAL 40 MG (LASIX VIAL) 11/22/2022 08:57 40 MG IV PUSH DAILY completed ACETAMINOPHEN 500 MG TAB (TYLENOL) 11/22/2022 10:48 1000 MG ORAL TID active PEG POWDER UD (MIRALAX 17GM UNIT DOSE) 11/22/2022 17:49 17 GM ORAL DAILY active TAMSULOSIN CAP 0.4 MG (FLOMAX) 11/23/2022 14:54 0.4 MG ORAL QPM completed TAMSULOSIN CAP 0.4 MG (FLOMAX) 11/23/2022 15:30 0.4 MG ORAL DAILY active LORAZEPAM VIAL 2 MG/ML (ATIVAN VIAL) 11/24/2022 15:15 0.5 MG IM OPTIONS X1 completed LORAZEPAM VIAL 2 MG/ML (ATIVAN VIAL) 11/24/2022 15:46 0.5 MG IM OPTIONS X1 completed HALOPERIDOL 5 MG/ML (HALDOL 1CC VIAL) 11/24/2022 22:59 5 MG IM OPTIONS DAILY completed LORAZEPAM VIAL 2 MG/ML (ATIVAN VIAL) 11/24/2022 23:00 0.5 MG IM OPTIONS PRN Q4H active HALOPERIDOL 5 MG/ML (HALDOL 1CC VIAL) 11/24/2022 23:22 5 MG IM OPTIONS X1 completed FINASTERIDE TAB 5 MG (PROSCAR) 11/25/2022 09:03 5 MG ORAL DAILY active LORAZEPAM VIAL 2 MG/ML (ATIVAN VIAL) 11/25/2022 09:38 1 MG IM OPTIONS X1 completed HALOPERIDOL 5 MG/ML (HALDOL 1CC VIAL) 11/25/2022 09:38 5 MG IM OPTIONS PRN X1 active CEFTRIAXONE PREMIX IV BAG 1 GM/50ML 11/25/2022 17:00 100 ml/hr INTRAVENOUS X1 completed HALOPERIDOL TAB 1 MG (HALDOL) 11/26/2022 10:00 1 MG ORAL PRN active Discharge Medications: Discharge Medications Aspirin 81MG Oral Tablet, Enteric Coated Clopidogrel 75MG Oral Tablet Coreg 12.5MG Oral Tablet Lipitor 10MG Oral Tablet Ramipril 10MG Oral Capsule Tums 750 MG Oral Tablet, Chewable amLODIPine Besylate 5MG Oral Tablet
--- OUTSIDE RECORDS SUMMARY | 2023-01-07 00:12 | XMS REPORT ---
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 Name Role Phone Xwatchlist TERRI Munguia Attending BRUCE VARNER Erdoc1 Functional Status No Data Found Immunization No Data Found Mental Status No Data Found Results COMPREHENSIVE METABOLIC PANEL - Collect Date/Time: 11/27/2022 06:58 [facility] ID: [id number] [address] [place], [place], [address] 000 LOINC: Test Value Unit Reference Range [...] COVID-19 RAPID - Collect Date/Time: 11/01 06:58 [facility] ID: [id number] [address] [place] [address], [id number] 000 LOINC: Test Value Unit Reference Range Code Code System Flag COVID 19 RAPID Negative CBC WITH AUTO DIFF - Collect Date/Time: 11/27/2022 06:58 [facility] ID: [id number] [address] [place] [address], [id number] 000 LOINC: Test Value Unit Reference Range [...] AUTO DIFF - Collect Date/Time: 11/26/2022 07:00 [facility] ID: [id number] [address] [place] [address], [id number] 000 LOINC: Test Value Unit Reference Range [...] 0.00-0.50 PSA TOTAL - Collect Date/Time: 07:00 [facility] ID: [id number] [address] [place] [address], [id number] 000 LOINC: Test Value Unit Reference Range Code Code System Flag PSA TOTAL 3.6 ng/mL 0.0-4.0 COMPREHENSIVE METABOLIC PANEL - Collect Date/Time: 11/26/2022 07:00 [facility] ID: [id number] [address] [place] [address], [id number] 000 LOINC: Test Value Unit Reference Range [...] URINE CULTURE - Collect Date/Time: 11/25 15:21 [facility] ID: [id number] [address] [place] [address], [id number] 000 LOINC: Test Value Unit Reference Range Code Code System Flag FINAL REPORT See Comment URINALYSIS AUTO W/ MICROSCOPIC - Collect Date/Time: 11/25/2022 15:21 [facility] ID: [id number] [address] [place] [address], [id number] 000 LOINC: Test Value Unit Reference Range Code Code System Flag Color Red Colorless-Lt. Yellow A Appear Cloudy Clear A Glucose. Negative Negative Bilirubin Negative Negative Icto N/A Negative A Ketones Negative Negative Sp.Arnot 1.015 1.000-1.030 Blood 3+ Negative A pH [...] METABOLIC PANEL - Collect Date/Time: 11/24/2022 04:50 [facility] ID: [id number] [address] [place] [address], [id number] 000 LOINC: Test Value Unit Reference Range [...] AUTO DIFF - Collect Date/Time: 11/24/2022 04:50 [facility] ID: [id number] [address] [place], [place], [address] 000 LOINC: Test Value Unit Reference Range [...] METABOLIC PANEL - Collect Date/Time: 11/23/2022 07:00 [facility] ID: [id number] [address] [place] [address], [id number] 000 LOINC: Test Value Unit Reference Range [...] AUTO DIFF - Collect Date/Time: 11/23/2022 07:00 [facility] ID: [id number] [address] [place] [address], [id number] 000 LOINC: Test Value Unit Reference Range [...] 0.00 0.00-0.50 MYOGLOBIN - Collect Date/Time: 06:31 [facility] ID: [id number] [address] [place] [address], [id number] 000 LOINC: Test Value Unit Reference Range Code Code System Flag Cruz 587.5 ng/ml 1.6-154.9 H CREATINE KINASE (CPK) TOTAL - Collect Da te/Time: 11/22/2022 06:31 [facility] ID: [id number] [address] [place] [address], [id number] 000 LOINC: Test Value Unit Reference Range Code Code System Flag CPK 128 U/L 26-174 COMPREHENSIVE METABOLIC PANEL - Collect Date/Time: 11/22/2022 06:31 [facility] ID: [id number] [address] [place] [address], [id number] 000 LOINC: Test Value Unit Reference Range [...] AUTO DIFF - Collect Date/Time: 11/22/2022 06:31 [facility] ID: [id number] [address] [facility] [place], [place], [address] 000 LOINC: Test Value Unit Reference Range [...] TOTAL - Collect Da te/Time: 11/21/2022 14:14 [facility] ID: [id number] [address] [place] [address], [id number] 000 LOINC: Test Value Unit Reference Range Code Code System Flag CPK 87 U/L 26-174 LACTIC ACID - Collect Date/Time: 023 14:14 [facility] ID: [id number] [address] [place] [address], [id number] 000 LOINC: Test Value Unit Reference Range Code Code System Flag LACTIC ACID 14.5 mg/dL 4.5-19.8 COMPREHENSIVE METABOLIC PANEL - Collect Date/Time: 11/21/2022 14:14 [facility] ID: [id number] [address] [place] [address], [id number] 000 LOINC: Test Value Unit Reference Range [...] PANEL - Collect Date/Jonathan e: 11/21/2022 05:00 [facility] ID: [id number] [address] [place] [address], [id number] 000 LOINC: Test Value Unit Reference Range [...] BNP - Collect Date/Time: 11/21/2022 05:0 0 [facility] ID: [id number] [address] [place] [address], [id number] 000 LOINC: Test Value Unit Reference Range Code Code System Flag BNP 3146.70 pg/ml 0.00-100.00 H CBC WITH AUTO DIFF - Collect Date/Time: 11/21/2022 05:00 [facility] ID: [id number] [address] [place] [address], [id number] 000 LOINC: Test Value Unit Reference Range [...] URINE CULTURE - Collect Date/Time: 11/20 19:32 [facility] ID: [id number] [address] [place] [address], [id number] 000 LOINC: Test Value Unit Reference Range Code Code System Flag FINAL REPORT See Comment URINALYSIS AUTO W/ MICROSCOPIC - Collect Date/Time: 11/20/2022 19:32 [facility] ID: [id number] [address] [place] [address], [id number] 000 LOINC: Test Value Unit Reference Range Code Code System Flag Color Yellow Colorless-Lt. Yellow Appear Cloudy Clear A Glucose. Negative Negative Bilirubin Negative Negative Icto N/A Negative A Ketones Negative Negative Sp.Arnot 1.015 1.000-1.030 Blood 2+ Negative A pH [...] LACTIC ACID - Collect Date/Time: 023 17:28 [facility] ID: [id number] [address] [place] [address], [id number] 000 LOINC: Test Value Unit Reference Range Code Code System Flag LACTIC ACID 25.6 mg/dL 4.5-19.8 H BNP - Collect Date/Time: 11/20/2022 17:2 8 [facility] ID: [id number] [address] [place] [address], [id number] 000 LOINC: Test Value Unit Reference Range Code Code System Flag BNP 2880.90 pg/ml 0.00-100.00 H EKG, TRACING ONLY - Collect Date/Time: 0 11/20/2022 16:50 [facility] ID: [id number] [address] [place], [place], [address] 000 LOINC: Test Value Unit Reference Range Code Code System Flag EKG Complete CARDIAC PANEL (EXP) - Collect Date/Time: 11/20/2022 16:50 [facility] ID: [id number] [address] [place], [place], [address] 000 LOINC: Test Value Unit Reference Range Code Code System Flag CK 159 U/L 26-174 CKMB 5.6 ng/ml 0.0-9.2 TROPONIN I 0.156 ng/mL 0.000-0.400 MYOGLOBIN 426.1 ng/ml 1.6-154.9 H CARBON MONOXIDE - Collect Date/Time: 16:50 [facility] ID: [id number] [address] [place], [place], [address] 000 LOINC: Test Value Unit Reference Range Code Code System Flag CARBON MONOXIDE, BLOOD 3.6 % 0.0-3.6 COMPREHENSIVE METABOLIC PANEL - Collect Date/Time: 11/20/2022 16:50 [facility] ID: [id number] [address] [place], [place], [address] 000 LOINC: Test Value Unit Reference Range [...] AUTO DIFF - Collect Date/Time: 11/20/2022 16:50 [facility] ID: [id number] [address] [facility], [place], [place], [address] 000 LOINC: Test Value Unit Reference Range [...] GASES - Collect Date/Time : 11/20/2022 16:47 [facility] ID: [id number] [address] [place] [address], [id number] 000 LOINC: Test Value Unit Reference Range Code Code System Flag pH 7.44 7.35-7.45 pCO2 19 mm/Hg 35-45 L pO2 95 mm/Hg 80-95 HCO3 13 mmol/L 20-31 L BASE EXCESS -11.00 mmol/L 1.80-4.20 L O2 SAT 98 RM AIR 95-100 CT CERVICAL SPINE W/O CONTRAST - Complet ed: 11/20/2022 18:14 LOINC: 07948-8 \DRAo\\PGNo\\MRB2\ [address] [address] ---------NAME--------- NUM VIJAYA SEX AGE ADMIT DISC. XRAY# F/C TYPE MARYLIN KIMBLE Dali [id number] M 77 11/20/22 92642 M5 I/P DATE OF : 1945 M/R# [id number] PH#: [phone] 110-1 LOCATION: TRANSCRIBED: 11/21/22 9:[address] CERVICAL SPINE W/O [id number] COMPLETED:11/20/22 18:14 SKS 62859 {SPINE PROCED REASON: Trauma PHYSICIAN: TERRI BARRERA B R A D I O L O G Y R E P O R T [facility] Final Report Patient: DARIN COULTER Time Out: [...] iterative reconstruction. Interpreted by Brandon Omalley M.D. [facility] Exam Id [id number] CT HEAD-W/O CONTRAST - Completed: 2022 18:14 LOINC: 53880-3 \DRAo\\PGNo\\MRB2\ [place] [address] ---------NAME--------- NUM VIJAYA SEX AGE ADMIT DISC. XRAY# F/C TYPE MARYLIN Mcnally [id number] M 77 11/20/22 83439 M5 I/P DATE OF : 1945 M/R# [id number] PH#: [phone] 110-1 LOCATION: TRANSCRIBED: 11/21/22 9:[address] HEAD-W/O CONTRAST [id number] COMPLETED:11/20/22 18:14 [facility] [id number] {REASON FOR TEST: Altered Mental Status PHYSICIAN: TERRI BARRERA B R A D I O L O G Y R E P O R T [facility] Final Report Patient: DARIN COULTER Time Out: [...] iterative reconstruction. Interpreted by Brandon Omalley M.D. [facility] Exam Id [id number] CT THORACIC SPINE W/O CONTRAST - Complet ed: 11/20/2022 18:14 LOINC: 01750-0 \DRAo\\PGNo\\MRB2\ [address] [address] ---------NAME--------- NUM VIJAYA SEX AGE ADMIT DISC. XRAY# F/C TYPE MARYLIN Mcnally [id number] M 77 11/20/22 60526 M5 I/P DATE OF : 1945 M/R# [id number] #: [id number] 110-1 LOCATION: TRANSCRIBED: 11/21/22 9:[address] THORACIC SPINE W/O [id number] COMPLETED:11/20/22 18:14 [facility] [id number] {SPINE PROCED REASON: Trauma PHYSICIAN: TERRI BARRERA B R A D I O L O G Y R E P O R T [facility] Final Report Patient: DARIN COULTER Time Out: [...] iterative reconstruction. Interpreted by Brandon Omalley M.D. [facility] Exam Id [id number] XR CHEST SINGLE VIEW - Completed: 2022 18:14 LOINC: 29868-7 \DRAo\\PGNo\\MRB2\ [facility] [address] [place] [address] ---------NAME--------- NUM VIJAYA SEX AGE ADMIT DISC. XRAY# F/C TYPE MARYLIN Mcnally [id number] M 77 11/20/22 71722 M5 I/P DATE OF : 1945 M/R# [id number] #: [id number] 110-1 LOCATION: TRANSCRIBED: 11/21/22 9:56 0 XR CHEST SINGLE VIEW [id number] COMPLETED:11/20/22 18:14 S [id number] {REASON FOR CHEST: Cough PHYSICIAN: TERRI BARRERA B R A D I O L O G Y R E P O R T [facility] Final Report Patient: DARIN COULTER Time Out: 07:56 Exam(s): XR CHEST SINGLE VIEW EXAM: XR CHEST SINGLE VIEW INDICATION: Cough. TECHNIQUE: Portable chest 1730. 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 There is cardiomegaly with vascular pulmonary vascular congestion and interstitial edema. IMPRESSION: Congestive heart failure. This appears worse compared to exam dated 10/30/2021. Interpreted by Brandon Omalley M.D. [facility] Exam Id [id number] Social History Type Status Start Date End Date Code Code System Smoking History Former smoker 4798879 SNOMED CT Smoking History Unknown if ever smoked 772186212 SNOMED CT Sex Male Vital Signs Vital Sign Value Unit [place] Value Boston Unit Date/Time Recent/Initial? Code Cod e System Body Mass Index 25.97 kg/m2 11/20/2022 20:30 Most Recent 24563-8 LOINC Body Mass Index 25.97 kg/m2 11/20/2022 16:42 Initial 46532-8 LOINC Systolic Blood Pressure 113 mm[Hg] 11/27/2022 [...] 10 0 % 11/27/2022 06:20 Most Recent 12442-3 LOINC O2 Saturation 10 0 % 11/20/2022 16:42 Initial 51676-3 LOINC Inhaled Oxygen Flow Rate 2.00 L/min [...] kg 162.00 lbs 11/26/2022 19:39 Most Recent 18188-3 LOINC Weight 82.10 kg 181.00 lbs 11/20/2022 16:42 Initial 55282-6 [facility] Medications Medication Start Date En d Date Route Frequency Dose Code Code System Medication Instructions Home Meds Aspirin 81MG Oral Ta blet, Enteric Coated 10/30/2021 11/27/2022 OR AL Once A Day 81 MILLIGRAMS 561922 RxNorm TAKE 81 MILLIGRAMS ORAL Once A Day Clopidogrel 75MG Ora l Tablet 10/30/2021 11/27/2022 OR AL Once A Day 75 MILLIGRAMS 750691 RxNorm TAKE 75 MILLIGRAMS ORAL Once A Day Coreg 12.5MG Oral Ta blet 10/30/2021 11/27/2022 OR AL Twice A Day 12.5 MILLIGRAMS 421201 RxNorm TAKE 12. 5 MILLIGRAMS ORAL Twice A Day Lipitor 10MG Oral Ta blet 10/30/2021 Unknown ORAL At Bedtime 10 MILLIGRAMS 216651 RxNorm TAKE 10 MILLIGRAMS ORAL At Bedtime Ramipril 10MG Oral C apsule 10/30/2021 Unknown ORAL Once A Day 10 MILLIGRAMS 253176 RxNorm TAKE 10 MILLIGRAMS ORAL Once A Day Tums 750 MG Oral Tab let, Chewable 10/30/2021 11/27/2022 OR AL Once A Day 750 MG 716180 2 RxNorm TAKE 750 MG ORAL Once A Day amLODIPine Besylate 5MG Oral Tablet 10/30/2021 11/27/2022 OR AL Once A Day 5 MILLIGRAMS 605924 RxNorm TAKE 5 M ILLIGRAMS ORAL Once A Day Acetaminophen 500MG Oral Tablet 11/27/2022 Unknown BY MO [facility] Three Times A Day 1000 MILLIGRAMS 445502 RxNorm TAKE 100 0 MILLIGRAMS BY MOUTH Three Times A Day Eliquis 5MG Oral Tablet 11/27/2022 Unknown BY MOUTH Twice A Day 2.5 MILLIGRAMS 4427491 RxNorm TAKE 2.5 MILLIGRAMS BY MOUTH Twice A Day Carvedilol 6.25MG Or al Tablet 11/27/2022 Unknown BY [facility] Twice A Day 6.25 MILLIGRAMS 444294 RxNorm TAKE 6.2 5 MILLIGRAMS BY MOUTH Twice A Day Finasteride 5MG Oral Tablet 11/27/2022 Unknown BY MO [facility] Once A Day 5 MILLIGRAMS 270328 RxNorm TAKE 5 M ILLIGRAMS BY MOUTH Once A Day Furosemide 40MG Oral Tablet 11/27/2022 Unknown BY MO [facility] Once A Day 40 MILLIGRAMS 565022 RxNorm TAKE 40 MILLIGRAMS BY MOUTH Once A Day Haloperidol 1MG Oral Tablet 11/27/2022 Unknown BY MO [facility] As Needed 1 MILLIGRAMS 3 12386 RxNorm TAKE 1 M ILLIGRAM BY MOUTH As Needed For Agitation, not to exceed 5mg daily Nitrofurantoin Monoh ydrate/Macrocrystals 100MG Oral Capsule 11/27/2022 Unknown BY MOUTH Twice A Day 100 MILLIGRAMS 3478057 RxNorm TAKE 100 MILLIGRAMS BY MOUTH Twice A Day Healthylax Polyethyl shannan Glycol 3350 17GM/1Dose Oral Powder for Solution 11/27/2022 Unknown BY MOUTH Once A Day 17 GRAM 3477354 RxNorm TAKE 17 GRAM BY MOUTH Once A Day Tamsulosin HCl 0.4MG Oral Capsule 11/27/2022 Unknown BY MO [facility] Once A Day 0.4 MILLIGRAMS 818564 RxNorm TAKE 0.4 MILLIGRAMS BY MOUTH Once [...] throughout tx session frequently cussing at this CANDLE POURER especially when cued for gait correction. 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 Pt will be able to [...] sit to supine with mod indep status Reel And Rewinder Operator Goals: 1. Pt will be able to [...] perform log-rolling technique due to confusion. This CANDLE POURER has deferred stair training due to pt [...] sit to supine with mod indep status Usp Goals: 1. Pt will be able to [...] supine with mod indep status - progressing Usp Goals: 1. Pt will be able to d/c to SNF rehab for continued self care. Hospital Discharge Instructions Should you have any questions prior to discharge, please contact a member of your healthcare team. If you have left the hospital and have any questions, please contact your primary care physician. DIET: REGULAR DIET. Prescriptions: Processed electronically, To pharmacy of choice: [facility] Discharge Diagnosis: UTI, Altered Mental Status, weakness Follow-Up Appointment: 1. Please follow up with Dr. Murray post discharge from correction facility. Address: [address] [place] [address] General Activity: Up and about as tolerated [...] collected by patient. [facility]art[facility]: Wheelchair, Private vehicle (Facility Van) Accompanied By: [facility] Staff Member. Pain Control Status/Pain Management: Adequate [...] Nurse's Notes: 1. Patient to discharge to [facility] on November 27 at [...] Code Code System TOTAL SELF-CARE DEFICIT active 15739302 SNOMED-C T VASCULAR DEMENTIA active 905434838 SNOMED-CT PAROXYSMAL ATRIAL FIBRILLATION active 973202551 SNOMED- CT CONGESTIVE HEART FAILURE (DISORDER) active 10967271 SNOMED-C T URINARY TRACT INFECTION active 79067850 SNOMED-C T CHRONIC KIDNEY DISEASE active 586298362 SNOMED- CT CKD STAGE 3B active 376789902 SNOMED-CT PULMONARY EDEMA active 17901963 SNOMED-CT PRESENCE OF PROSTHETIC HEART VALVE active 773904165 SNOMED- CT DARK-BROWN COLORED URINE active 126159811994928 S NOMED-CT RECURRENT FALLS active 386950689 SNOMED-CT DELIRIUM active 1340958 SNOMED-CT RETENTION OF URINE active 085548376 SNOMED-CT HYPOXEMIA 11/21/2022 resolved 229163032 SNOMED-CT UPPER RESPIRATORY DISEASE, ACUTE 10/30/2021 resolved 651420207 SNOMED-CT CHRONIC KIDNEY DISEASE STAGE 3 10/30/2021 resolved 985020804 SNOME D- CT HTN 10/30/2021 resolved 58269273 SNOMED-CT GOUT 10/30/2021 resolved 71891576 SNOMED-CT LEAD SCIENTIST USE OF ANTICOAGULANTS 10/30/2021 resolved 031391811 SNOMED-CT MIXED HYPERLIPIDEMIA 0 10/30/2021 resolved 294787512 SNOME D-CT HISTORY OF COVID-19 resolved 956245312584364627 SNOMED-CT PREDIABETES 10/30/2021 resolved 904926464 SNOMED-CT OSTEOARTHRITIS 022 resolved 832090854 SNOME D-CT ACUTE COVID-19 023 resolved 3576048871 SNOM ED-CT ACUTE BRONCHITIS 10/30 resolved 38661405 SNOMED -CT Allergies and Adverse Reactions Allergy Substance Reaction Severity Start Date Concern Status Code Code System No Known Drug Allergies Active 954452778 SNOMED- CT Plan of Treatment MRI BRAIN [...] or all goals met Treatment: PT EVAL 72566, gait training x1 Consent: x Patient agrees [...] assistance and recommendations. - Disch arging to [facility] this morning. 2. Cognitive impairment [...] sufficient bladder rest. 5. Paroxysmal afib - [id number] score of 4 - Anticoagulate with eliquis, renally dosed. 6. CHF - Continue oral furosemide. - Carvedilol 6.25mg BID, monitor for hypotension. 7. UTI - Continue nitrofurantoin for a total of 10 days. 8. Dark urine - Resolved. 9. CKD3B - Renally dose medications. - Baseline creatinine around 2.0. - Follows with [facility]. Dispo: Discharge to [facility]. Follow-up in clinic in 7-10 [...] Active Date Inactive Date Discharge Summary Notes [facility] SABIHA Mello 11/29/2022 18:42 All Demographics Patient Name Age Sex Visit Number Admission Date/Time Attending Physician Date of Service Room and Bed Emergency Contact DARIN COULTER 1945 77 years Male [id number] 11/20/2022 20:45 PETROS MURRAY 11/20/2022 110-1 11/27/2022 [...] for cognitive impairment and/or dementia. Mr. Coulter's ze-kzksyj-ms-law and his ex- have been checking in [...] required further rehabilitation. Patient was discharged to [facility] on 11/27. Patient' s extended [...] Negative Negative 11/25/2022 11:36 11/25/2022 15:21 final Sp.Arnot 1.015 1.000-1.030 11/25/2022 11:36 11/25/2022 15:21 final [...] Negative Negative 11/20/2022 16:50 11/20/2022 19:32 final Sp.Arnot 1.015 1.000-1.030 11/20/2022 16:50 11/20/2022 19:32 final [...] their assistance and recommendations. - Discharging to [facility] this morning. 2. Cognitive impairment [...] sufficient bladder rest. 5. Paroxysmal afib - PHS6VS5-UFDv score of 4 - Anticoagulate with eliquis, renally dosed. 6. CHF - Continue oral furosemide. - Carvedilol 6.25mg BID, monitor for hypotension. 7. UTI - Continue nitrofurantoin for a total of 10 days. 8. Dark urine - Resolved. 9. CKD3B - Renally dose medications. - Baseline creatinine around 2.0. - Follows with [facility]. Dispo: Discharge to [facility]. Follow-up in clinic in 7-10 [...] Besylate 5MG Oral Tablet Imaging Narrative Notes [facility] R \TM00\\12PI\\DRAo\\BM09\\PGNo\\MRB2\ \MRHo\ [facility] [address] [place] [address] ---------NAME--------- NUMBER SEX AGE ADMIT DISC. XRAY# F/C TYPE MARYLIN Mcnally [id number] M 77 11/20/22 13099 M5 I/P DATE OF : 1945 M/R# [id number] PH#: [phone] 110-1 \MRHx\ LOCATION: TRANSCRIBED: 11/21/22 9:[address] CERVICAL SPINE W/O [id number] COMPLETED:11/20/22 18:14 SKS 42102 {SPINE PROCED REASON: Trauma PHYSICIAN: TERRI BARRERA B R A D I O L O G Y R E P O R T [facility] Final Report Patient: DARIN COULTER Time Out: [...] iterative reconstruction. Interpreted by Brandon Omalley M.D. [facility] Exam Id [id number] [facility] R \TM00\\12PI\\DRAo\\BM09\\PGNo\\MRB2\ \MRHo\ [facility] [address] [place] [address] ---------NAME--------- NUMBER SEX AGE ADMIT DISC. XRAY# F/C TYPE MARYLIN Mcnally [id number] M 77 11/20/22 39172 M5 I/P DATE OF : 1945 M/R# [id number] PH#: [phone] 110-1 \MRx\ LOCATION: TRANSCRIBED: 11/21/22 9:[address] THORACIC SPINE W/O [id number] COMPLETED:11/20/22 18:14 [facility] [address] {SPINE PROCED REASON: Trauma PHYSICIAN: TERRI Taylor R A D I O L O G Y R E P O R T [facility] Final Report Patient: DARIN COULTER Time Out: [...] iterative reconstruction. Interpreted by Brandon Omalley M.D. [facility] Exam Id [id number] [facility] R \TM00\\12PI\\DRAo\\BM09\\PGNo\\MRB2\ \MRHo\ [facility] [address] [place] [address] ---------NAME--------- NUMBER SEX AGE ADMIT DISC. XRAY# F/C TYPE MARYLIN KIMBLE Dali [id number] 77 11/20/22 29567 M5 I/P DATE OF : 1945 M/R# [id number] #: [id number] 110-1 [facility] LOCATION: TRANSCRIBED: 11/21/22 9:56 0 XR CHEST SINGLE VIEW [id number] COMPLETED:11/20/22 18:14 S 60926 {REASON FOR CHEST: Cough PHYSICIAN: TERRI BARRERA B R A D I O L O G Y R E P O R T [facility] Final Report Patient: DARIN COULTER Time Out: 07:56 Exam(s): XR CHEST SINGLE VIEW EXAM: XR CHEST SINGLE VIEW INDICATION: Cough. TECHNIQUE: Portable chest 1730. 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 There is cardiomegaly with vascular pulmonary vascular congestion and interstitial edema. IMPRESSION: Congestive heart failure. This appears worse compared to exam dated 10/30/2021. Interpreted by Brandon Omalley M.D. [facility] Exam Id [id number] [facility] R \TM00\\12PI\\DRAo\\BM09\\PGNo\\MRB2\ \MRHo\ [facility] [address] [place] [address] ---------NAME--------- NUMBER SEX AGE ADMIT DISC. XRAY# F/C TYPE MARYLIN Mcnally [id number] 11/20/22 [id number] M5 I/P DATE OF : 1945 M/R# [id number] #: [id number] 110-1 \MRHx\ LOCATION: TRANSCRIBED: 11/21/22 9:[address] HEAD-W/O CONTRAST [id number] COMPLETED:11/20/22 18:14 [facility] [id number] {REASON FOR TEST: Altered Mental Status PHYSICIAN: TERRI BARRERA B R A D I O L O G Y R E P O R T [facility] Final Report Patient: DARIN COULTER Time Out: [...] iterative reconstruction. Interpreted by Brandon Omalley M.D. [facility] Exam Id [id number] History and Physical Notes [facility] 11/21/2022 14:56 All Demographics Patient Name Age Sex Visit Number Admission Date/Time Attending Physician Date of Service Room and Bed Emergency Contact DARIN COULTER Dali 1945 77 years Male [id number] 11/20/2022 20:45 PETROS MURRAY 11/20/2022 110-1 11/21/2022 [...] for cognitive impairment and/or dementia. Mr. 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 3. Paroxysmal afib - [id number] score of 4 - Anticoagulate with eliquis, [...] IV BAG 1 GM/50ML, DAILY Progress Notes [facility] SONG Funmilayo 11/25/2022 11:42 All Demographics Patient Name Age Sex Visit Number Admission Date/Time Attending Physician Date of Service Room and Bed Emergency Contact DARIN COULTER 1945 77 years Male [id number] 11/20/2022 20:45 PETROS Munguia JAMARCALVIN 11/20/2022 110-1 11/25/2022 11:25 Subjective Darin has [...] and recommendations. - Patient tentatively accepted to [facility] on Saturday. 2. Cognitive impairment [...] sufficient bladder rest. 5. Paroxysmal afib - [id number] score of 4 - Anticoagulate with eliquis, [...] Tablet, Chewable amLODIPine Besylate 5MG Oral Tablet [facility] 11/22/2022 10:47 All Demographics Patient Name Age Sex Visit Number Admission Date/Time Attending Physician Date of Service Room and Bed Emergency Contact ROSALIO COULTERCorbin Mcnally 1945 77 years Male [id number] 11/20/2022 20:45 PETROS MURRAY 11/20/2022 110-1 11/22/2022 10:21 Subjective No events overnight. Xegpen-im-xsb, Natalia, is at bedside. Darin has been [...] to cognitive impairment. 3. Paroxysmal afib - [id number] score of 4 - Anticoagulate with eliquis, [...] Meds Table Ordered Medication Start Date/Time D [place] Route Frequency Status NORMAL SALINE 1000ML IV [...] Chewable amLODIPine Besylate 5MG Oral Tablet [facility] [employer] R 11/22/2022 13:38 Patient's mental status has improved [...] if pt will agree to it. Patient pltpfs-sn-lpn at bedside. ELEONORA states she is currently in the process of cleaning up patient's home, reconnecting home phone, and reestablishing gas service for hot water and heating. ELEONORA states that patient has been using a kerosene heater and prehaps is suffering from exposure to fumes. 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 Spoke to aFbio Amaya at [facility] to identify in network SNF providers. Verified $0 copay days 1-20, $196 copay days 21-39, 0$ copay days 40-100. 3 day hospital stay is not required. Discussed choices with patient, he chose: 1. [facility]; 2. [facility]; 3. [facility]. Confirmed bed available at [facility]. Faxed clinicals. Zenia Cedillo visited patient to assess for admission to [facility] skilled unit. Zenia states that patient is accepted pending insurance authorization. Will need to complete care assessment prior to discharge. Received denial for inpatient, [facility] deems observation status more appropriate. Verified with Mimi at [facility] there is no limit for OBS [...] Contact DARIN COULTER 1945 77 years Male [id number] 11/20/2022 20:45 PETROS MURRAY 11/20/2022 110-1 11/24/2022 [...] and recommendations. - Patient tentatively accepted to [facility] on Saturday. 2. Cognitive impairment - Suspected vascular dementia - Have discussed extensively with patient's extended family that he will need closer monitoring and likely assistance with ADL's and IADL's. - Medication noncompliance has been occurring secondary to cognitive impairment. 3. Paroxysmal afib - [id number] score of 4 - Anticoagulate with eliquis, [...] Continue inpatient stay. Plan to discharge to [facility] on Saturday. Medications given this [...] Tablet, Chewable amLODIPine Besylate 5MG Oral Tablet [facility] 11/23/2022 16:54 Patient mental status improved again today. Arrangements being made for SNF. He is conditionally accepted to [facility] for Saturday, November 26, 2022 pending insurance authorization. This nurse has spoken with [facility] and learned that patient has coverage for SNF with no copay for days 1-20. SNF to verify and report back Saturday. Patient's Schroeder was dc'd today and he was unable to urinate. Flowmax has been ordered and administered. It is too soon to know results of Flowmax. May require reinsertion of Schroeder Catheter if urinary retention persists. [facility] 11/26/2022 13:49 Call received from Mahi at [facility]. We are still currently waiting on patients insurance to approve skilled stay. All discharge instructions complete except medication reconciliation. As soon as final acceptance with insurance, this nurse will notify Dr. Murray to complete. Care assessment completed this morning by this RN. No further issues noted. [facility] 11/21/2022 13:56 11/21/2022 13:18 All Demographics Patien t Name Age Sex Visit Number Admission Date/Time Attending Physician Date of Service Room and Bed Emergency Contact KANDICEROSALIO PEREZCorbin Mcnally 1945 77 years Male [id number] 11/20/2022 20:45 PETROS MURRAY 11/20/2022 110-1 Patient [...] status. 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 He states that her name is Natalia Gabriel and her is the centrifugal extractor operator of [employer]. He does not have her phone number, but states that she is supposed to visit patient in the hospital this afternoon. Nurse contacted Dr. Murray's office for family contact information. Former ELEONORA, Natalia [phone]; ex , Shayna [phone]. Barriers to Discharge: 1.Patient not medically stable [...] patient has transportation to attend appointments and slate picker medications. 5. Contact family members for further information regarding patient safety at home and his access to transportation. Primary Care Provider: Dr. Murray and Jackie Franco Pharmacy: [facility] [employer] (If applicable): [employer] 11/24/2022 10:47 All Demographics Patient Name Age Sex Visit Number Admission Date/Time Attending Physician Date of Service Room and Bed Emergency Contact DARIN COULTER 1945 77 years Male [id number] 11/20/2022 20:45 PETROS MURRAY 11/20/2022 110-1 11/24/2022 10:34 Subjective No events overnight. Patient has been tentatively accepted at [facility]. He is diuresing well with [...] and recommendations. - Patient tentatively accepted to [facility] on Saturday. 2. Cognitive impairment - Suspected vascular dementia - Have discussed extensively with patient's extended family that he will need closer monitoring and likely assistance with ADL's and IADL's. - Medication noncompliance has been occurring secondary to cognitive impairment. 3. Paroxysmal afib - [id number] score of 4 - Anticoagulate with eliquis, [...] Continue inpatient stay. Plan to discharge to [facility] on Saturday. Medications given this [...] Tablet, Chewable amLODIPine Besylate 5MG Oral Tablet [facility] 11/27/2022 09:26 All Demographics Patient Name Age Sex Visit Number Admission Date/Time Attending Physician Date of Service Room and Bed Emergency Contact DARIN COULTER 1945 77 years Male [id number] 11/20/2022 20:45 PETROS MURRAY 11/20/2022 110-1 11/27/2022 09:23 Darin is scheduled to discharge to [facility] today. This nurse received confirmation from Zenia that auth was approved my [facility]. Patient slate picker is scheduled between [phone]. A care assessment has been completed and faxed to facility. Dr. Murray rounded and spoke with patient and updated on plan on care. No concerns voiced by patient. Patient will maintain schroeder until Dr. Murray orders for this to be removed. Patient medication reconciliation completed and medications sent to [facility] per facility request. Family has been updated on plan of care. No further issues noted. Patient will discharge this morning. [facility] SABIHA Mello 11/26/2022 11:28 All Demographics Patient Name Age Sex Visit Number Admission Date/Time Attending Physician Date of Service Room and Bed Emergency Contact DARIN COULTER 1945 77 years Male [id number] 11/20/2022 20:45 PETROS Nilda MURRAY 11/20/2022 110-1 11/26/2022 10:52 Subjective Darin [...] reorientation. Discussed plan of care with his zbajnk-rw-kdi, Natalia, this morning. Objective General: Awake, alert, [...] Negative Negative 11/25/2022 11:36 11/25/2022 15:21 final Sp.Arnot 1.015 1.000-1.030 11/25/2022 11:36 11/25/2022 15:21 final [...] sufficient bladder rest. 5. Paroxysmal afib - [id number] score of 4 - Anticoagulate with eliquis, [...] Baseline creatinine around 2.0. - Follows with [facility]. CODE: DNR Diet: Regular DVT: Eliquis [...]
[2023-01-07] MEDS ORDERED: MEROPENEM 500 MG VIAL (MERREM) IV ONE (00:18)
[2023-01-07] MEDS: LACTATED RINGERS 1,000 ML IV SCH ×2 (00:18→06:14)
[2023-01-07] MEDS ORDERED: NS (IVPB) 100 ML ONE (00:18)
[2023-01-07] MEDS ORDERED: LACTATED RINGERS 1,000 ML IV ONE (00:20)
[2023-01-07 00:42] LABS: BASOPHILS % (AUTO) 0 % (0-10); EOSINOPHILS % (AUTO) 0 % (0-10); HEMOGLOBIN 9.1 g/dL (13.3-17.7); MEAN CORPUSCULAR VOLUME 92 fL (80-99)
[2023-01-07 00:44] LABS: ALBUMIN 2.9 GM/DL (3.2-4.5); HEMATOCRIT 27 % (40-54); LYMPHOCYTES # (AUTO) 0.4 10^3/uL (1.0-4.0); LYMPHOCYTES % (AUTO) 4 % (12-44); MEAN CORPUSCULAR HEMOGLOBIN 31 pg (25-34); MEAN CORPUSCULAR HGB CONC 34 g/dL (32-36); MEAN PLATELET VOLUME 11.4 fL (9.0-12.2); MONOCYTES # (AUTO) 0.3 10^3/uL (0.0-1.0); MONOCYTES % (AUTO) 3 % (0-12); NEUTROPHILS # (AUTO) 9.3 10^3/uL (1.8-7.8); NEUTROPHILS % (AUTO) 92 % (42-75); PLATELET COUNT 70 10^3/uL (130-400); POTASSIUM 4.1 MMOL/L (3.6-5.0); WHITE BLOOD COUNT 10.1 10^3/uL (4.3-11.0)
[2023-01-07 00:45] LABS: CALCIUM 8.7 MG/DL (8.5-10.1)
[2023-01-07 00:47] LABS: INR 2.1 (0.8-1.4); PROTHROMBIN TIME PATIENT 23.8 SEC (12.2-14.7)
[2023-01-07] MEDS ORDERED: ENOXAPARIN 40 MG/0.4 ML (LOVENOX) SYR ONE (00:47)
[2023-01-07 00:48] LABS: BILIRUBIN,TOTAL 1.3 MG/DL (0.1-1.0)
[2023-01-07 00:50] LABS: CREATININE SERUM 2.73 MG/DL (0.60-1.30)
[2023-01-07 01:12] LABS: ANISOCYTOSIS SLIGHT; BAND NEUTROPHILS 10 %; EOSINOPHILS % (MANUAL) 1 %; LYMPHOCYTES % (MANUAL) 4 %; MONOCYTES % (MANUAL) 5 %; NEUTROPHILS % (MANUAL) 78 %
[2023-01-07 01:13] LABS: BURR CELLS SLIGHT; ELLIPT/OVALOCYTES SLIGHT; TARGET CELLS SLIGHT
[2023-01-07] MEDS ORDERED: ENOXAPARIN 80 MG/0.8 ML (LOVENOX) SYR SC SCH ×2 (01:15→01:30)
[2023-01-07] MEDS ORDERED: MEROPENEM 500 MG in NS (IVPB) 100 ML IV SCH (01:15)
[2023-01-07] MEDS: dilTIAZem DRIP PRE-MIX 125 ML IV SCH (01:27)
[2023-01-07 01:55] LABS: BILIRUBIN,URINE NEGATIVE (NEGATIVE); CLARITY,URINE SL CLOUDY; COLOR,URINE ORANGE; GLUCOSE, URINE (UA) NEGATIVE (NEGATIVE); KETONES,URINE NEGATIVE (NEGATIVE); LEUKOCYTE ESTERASE ,URINE 3+ (NEGATIVE); NITRITE,URINE NEGATIVE (NEGATIVE); PH,URINE 6.5 (5-9); PROTEIN,URINE 3+ (NEGATIVE)
[2023-01-07 02:05] LABS: BACTERIA,URINE LARGE /HPF; RBC,URINE 50-100 /HPF; WBC,URINE 50-100 /HPF
[2023-01-07] MEDS ORDERED: DexMEDEtomidine 250 ML DRIP 250 ML IV ONE (02:51)
[2023-01-07] MEDS ORDERED: DexMEDEtomidine 250 ML DRIP 250 ML IV SCH (03:00)
--- NOTE | 2023-01-07 03:01 | Tele-ICU Progress Note ---
Progress Note 68M with CAD, CHF (EF45-50%), mechanical aortic valve transferred from [place] ED for sepsis, CONSUELO, rhabdo. He reportedly has not been doing well at home, primary has been recommending NH placement but patient has been refusing. Has had significant weakness with multiple recent falls. Today he was found down at home when neighbors checked on him. Down time is not clear, but they check on him at least daily. In ED found to have significant urinary retention with1.4L out after schroeder placement. Urine was malodorous and appeared infected. He was hypotensive with BP in the 90s with boluses still actively infusing. Merrem initiated. - sepsis: secondary to urinary source. Merrem initiated in ED. Known to have recurrent UTIs. Not clear if known MDRO in the past. Continue merrem. Cultures pending. :actic pending. - rhabdo: initial CK 306, possibly secondary to fall or to down time. Repeat ordered on arrival to ICU. Will have to find balance between aggressive hydration and CHF (EF45-50%). Ideally would hydrate to maintain UOP 200-300 cc/hr. Unlikely that he will tolerate fluids at that rate. - CONSUELO: secondary to obstructive vs rhabdo vs septic ATN vs prerenal. Likely a combination. Schroeder has been placed with relief of obstruction. Fluid boluses given. Avoid hypotension and nephrotoxins. Monitor renal function and UOP. - afib: rate 100-130. Cardiology consulted. Diltiazem gtt and therapuetic lovenox ongoing. - QTc prolongation: EKG with QTc 508. Avoid further QT prolonging drugs. Repeat EKG in AM. - troponemia: troponin 1.7. Likely demand. Cardiology consulted. Therapuetic lovenox given. Echo in AM. - confusion: AAOx2, unclear baseline. He is very restless and somewhat confused. Will start precedex now, will have limited options if he develops hyperactive delirium given prolonged QT. Ativan will likely worsen confusion. - mechanical aortic valve: has been given therapuetic lovenox. Patient assessed via real-time audiovisual communication system. CCT35 min Focused Exam Lactate Level 01/07/23 00:22: Lactic Acid Level 2.01*H Height, Weight, BMI Height: 5'11.00" Weight: 206lbs. oz. 93.591127me; 22.91 BMI Method: Lactic Acid Level Laboratory Tests Test 01/07/23 00:22 Lactic Acid Level 2.01 MMOL/L (0.50-2.00) *H FRANCIS GOEL MD Jan 07, 2023 03:01
[2023-01-07 03:19] VITALS: BP 92/59
[2023-01-07 06:19] LABS: BASOPHILS % (AUTO) 0 % (0-10); EOSINOPHILS % (AUTO) 0 % (0-10); HEMATOCRIT 25 % (40-54); HEMOGLOBIN 8.5 g/dL (13.3-17.7); LYMPHOCYTES % (AUTO) 4 % (12-44); MEAN CORPUSCULAR HEMOGLOBIN 31 pg (25-34); MEAN CORPUSCULAR HGB CONC 35 g/dL (32-36)
[2023-01-07 06:21] LABS: MEAN PLATELET VOLUME 11.5 fL (9.0-12.2)
[2023-01-07 06:24] LABS: LYMPHOCYTES # (AUTO) 0.3 10^3/uL (1.0-4.0); MEAN CORPUSCULAR VOLUME 90 fL (80-99); MONOCYTES # (AUTO) 0.5 10^3/uL (0.0-1.0); MONOCYTES % (AUTO) 5 % (0-12); NEUTROPHILS # (AUTO) 8.5 10^3/uL (1.8-7.8); NEUTROPHILS % (AUTO) 90 % (42-75); PLATELET COUNT 60 10^3/uL (130-400); WHITE BLOOD COUNT 9.5 10^3/uL (4.3-11.0)
[2023-01-07 06:32] LABS: CALCIUM 8.2 MG/DL (8.5-10.1)
[2023-01-07 06:37] LABS: CREATININE SERUM 2.78 MG/DL (0.60-1.30)
[2023-01-07] MEDS ORDERED: LACTATED RINGERS 1,000 ML IV SCH (06:54)
--- NOTE | 2023-01-07 08:38 | Consultation-Cardiology ---
HPI-Cardiology Cardiology Consultation Date of Consultation 01/07/23 Date of Admission Time Seen by Provider: 08:35 Indication: Chest pain HPI 77-year-old gentleman with a history of coronary artery disease, CABG, aortic valve replacement. Noncompliant with medication, apparently he has stopped taking his cardiac meds for the past month or so. Has been having increasing weakness, multiple falls. Reported right-sided chest pain. No shortness of breath. No palpitation. Patient came into the emergency room and noted to have elevation in troponin level, he had acute on chronic renal failure. Home Medications & Allergies Allergies: Coded Allergies: No Known Drug Allergies (Verified Allergy, Unknown, 11/02/09) Home Medication List Reviewed: Yes FXB-Vhczqb-Ubcwhu Hx Patient Social History Marital Status: single Employed/Student: retired Smoking Status: Never a Smoker Have you traveled recently?: No Alcohol Use?: No Past Medical History Discussed below Family Medical History Significant Family History: No Pertinent Family Hx Review of Systems-General Review of Systems Constitutional: see HPI, malaise, weakness EENTM: see HPI, no symptoms reported Respiratory: see HPI; No cough; dyspnea on exertion; No hemoptysis, No orthopnea, No phlegm, No short of breath, No stridor, No wheezing, No other Cardiovascular: see HPI, chest pain; No edema, No Hx of Intervention, No palpitations, No syncope, No vascular heart diseas, No other Gastrointestinal: no symptoms reported, see HPI Genitourinary: no symptoms reported, see HPI Musculoskeletal: no symptoms reported, see HPI Skin: no symptoms reported, see HPI Psychiatric/Neurological: No Symptoms Reported, See HPI Reviewed Test Results Reviewed Test Results Lab Laboratory Tests Test 01/07/23 00:22 01/07/23 01:40 01/07/23 02:17 01/07/23 04:40 Range/Units White Blood Count 10.1 4.3-11.0 10^3/uL Red Blood Count 2.93 L 4.30-5.52 10^6/uL Hemoglobin 9.1 L 13.3-17.7 g/dL Hematocrit 27 L 40-54 % Mean Corpuscular Volume 92 80-99 fL Mean Corpuscular Hemoglobin 31 25-34 pg Mean Corpuscular Hemoglobin Concent 34 32-36 g/dL Red Cell Distribution Width 19.3 H 10.0-14.5 % Platelet Count 70 L 130-400 10^3/uL Mean Platelet Volume 11.4 9.0-12.2 fL Immature Granulocyte % (Auto) 1 % Neutrophils (%) (Auto) 92 H 42-75 % Lymphocytes (%) (Auto) 4 L 12-44 % Monocytes (%) (Auto) 3 0-12 % Eosinophils (%) (Auto) 0 0-10 % Basophils (%) (Auto) 0 0-10 % Neutrophils # (Auto) 9.3 H 1.8-7.8 10^3/uL Lymphocytes # (Auto) 0.4 L 1.0-4.0 10^3/uL Monocytes # (Auto) 0.3 0.0-1.0 10^3/uL Eosinophils # (Auto) 0.0 0.0-0.3 10^3/uL Basophils # (Auto) 0.0 0.0-0.1 10^3/uL Immature Granulocyte # (Auto) 0.1 0.0-0.1 10^3/uL Neutrophils % (Manual) 78 % Lymphocytes % (Manual) 4 % Monocytes % (Manual) 5 % Eosinophils % (Manual) 1 % Band Neutrophils 10 % Percent Immature Platelet Fraction 7.1 0.0-7.6 % Anisocytosis SLIGHT Target Cells SLIGHT [place] Cells SLIGHT Elliptocytes SLIGHT Prothrombin Time 23.8 H 12.2-14.7 SEC INR Comment 2.1 H 0.8-1.4 Sodium Level 137 135-145 MMOL/L Potassium Level 4.1 3.6-5.0 MMOL/L Chloride Level 105 98-107 MMOL/L Carbon Dioxide Level 19 L 21-32 MMOL/L Anion Gap 13 5-14 MMOL/L Blood Urea Nitrogen 52 H 7-18 MG/DL Creatinine 2.73 H 0.60-1.30 MG/DL Estimat Glomerular Filtration Rate 23 BUN/Creatinine Ratio 19 Glucose Level 118 H 70-105 MG/DL Lactic Acid Level 2.01 *H 3.46 *H 1.68 0.50-2.00 MMOL/L Calcium Level 8.7 8.5-10.1 MG/DL Corrected Calcium 9.6 8.5-10.1 MG/DL Total Bilirubin 1.3 H 0.1-1.0 MG/DL Aspartate Amino Transf (AST/SGOT) 18 5-34 U/L Alanine Aminotransferase (ALT/SGPT) 16 0-55 U/L Alkaline Phosphatase 99 40-136 U/L Total Creatine Kinase 270 H 30-200 U/L Troponin I 1.934 *H <0.028 NG/ML Total Protein 6.0 L 6.4-8.2 GM/DL Albumin 2.9 L 3.2-4.5 GM/DL Urine Color ORANGE Urine Clarity SL CLOUDY Urine pH 6.5 5-9 Urine Specific [place] 1.015 L 1.016-1.022 Urine Protein 3+ H NEGATIVE Urine Glucose (UA) NEGATIVE NEGATIVE Urine Ketones NEGATIVE NEGATIVE Urine Nitrite NEGATIVE NEGATIVE Urine Bilirubin NEGATIVE NEGATIVE Urine Urobilinogen 0.2 < = 1.0 MG/DL Urine Leukocyte Esterase 3+ H NEGATIVE Urine RBC (Auto) 3+ H NEGATIVE Urine RBC 50-100 H /HPF Urine WBC 50-100 H /HPF Urine Crystals NONE /LPF Urine Bacteria LARGE H /HPF Urine Casts NONE /LPF Urine Mucus NEGATIVE /LPF Urine Culture Indicated YES Test 01/07/23 05:55 Range/Units White Blood Count 9.5 4.3-11.0 10^3/uL Red Blood Count 2.71 L 4.30-5.52 10^6/uL Hemoglobin 8.5 L 13.3-17.7 g/dL Hematocrit 25 L 40-54 % Mean Corpuscular Volume 90 80-99 fL Mean Corpuscular Hemoglobin 31 25-34 pg Mean Corpuscular Hemoglobin Concent 35 32-36 g/dL Red Cell Distribution Width 19.5 H 10.0-14.5 % Platelet Count 60 L 130-400 10^3/uL Mean Platelet Volume 11.5 9.0-12.2 fL Immature Granulocyte % (Auto) 2 % Neutrophils (%) (Auto) 90 H 42-75 % Lymphocytes (%) (Auto) 4 L 12-44 % Monocytes (%) (Auto) 5 0-12 % Eosinophils (%) (Auto) 0 0-10 % Basophils (%) (Auto) 0 0-10 % Neutrophils # (Auto) 8.5 H 1.8-7.8 10^3/uL Lymphocytes # (Auto) 0.3 L 1.0-4.0 10^3/uL Monocytes # (Auto) 0.5 0.0-1.0 10^3/uL Eosinophils # (Auto) 0.0 0.0-0.3 10^3/uL Basophils # (Auto) 0.0 0.0-0.1 10^3/uL Immature Granulocyte # (Auto) 0.1 0.0-0.1 10^3/uL Percent Immature Platelet Fraction 6.4 0.0-7.6 % Sodium Level 137 135-145 MMOL/L Potassium Level 4.0 3.6-5.0 MMOL/L Chloride Level 107 98-107 MMOL/L Carbon Dioxide Level 18 L 21-32 MMOL/L Anion Gap 12 5-14 MMOL/L Blood Urea Nitrogen 54 H 7-18 MG/DL Creatinine 2.78 H 0.60-1.30 MG/DL Estimat Glomerular Filtration Rate 22 BUN/Creatinine Ratio 19 Glucose Level 103 70-105 MG/DL Calcium Level 8.2 L 8.5-10.1 MG/DL Physical Exam Physical Exam Vital Signs Vital Signs - First Documented 01/07/23 01/07/23 01/07/23 00:12 01:00 03:19 Temp 36.7 Pulse 98 Resp 30 B/P (MAP) 127/71 (89) Pulse Ox 90 O2 Delivery Room Air O2 Flow Rate 4.00 FiO2 36 Capillary Refill : NONE Height, Weight, BMI Height: 5'11.00" Weight: 206lbs. oz. 93.496801eb; 22.91 BMI Method: General Appearance: No Apparent Distress, WD/WN Eyes: Bilateral Eye Normal Inspection, Bilateral Eye PERRL, Bilateral Eye EOMI HEENT: PERRL/EOMI, TMs Normal, Normal ENT Inspection, Pharynx Normal, Moist Mucous Membranes Neck: Full Range of Motion, Normal Inspection, Non Tender, Supple, Carotid Bruit Respiratory: Chest Non Tender, Normal Breath Sounds, No Accessory Muscle Use, No Respiratory Distress Cardiovascular: Regular Rate, Rhythm, No Gallop, No JVD, Normal Peripheral Pulses, Systolic Murmur, Gallop/S3 Gastrointestinal: Normal Bowel Sounds, No Organomegaly, No Pulsatile Mass, Non Tender, Soft Back: Normal Inspection, No CVA Tenderness, No Vertebral Tenderness Extremity: Normal Capillary Refill, Normal Inspection, Normal Range of Motion, Non Tender, No Calf Tenderness, Pedal Edema Neurologic/Psychiatric: Alert, Oriented x3, No Motor/Sensory Deficits, Normal Mood/Affect Skin: Normal Color, Warm/Dry Lymphatic: No Adenopathy A/P-Cardiology Admission Diagnosis Chest pain Non-ST elevation myocardial infarction Coronary artery disease Aortic valve replacement Hypertension Assessment/Plan Chest pain, resembling angina Elevated troponin Non-ST elevation myocardial infarction Discussed the management plan, discussed risk versus benefit especially with his underlying renal insufficiency. We will proceed with cardiac catheterization Nonsustained ventricular tachycardia History of ventricular tachycardia in the past. Starting beta-blockers and monitor tolerance and response. Coronary artery disease, history of CABG 4 with aortic valve replacement done in October 2009. Cardiac catheterization was done in March 2014 after having an abnormal stress test which showed small vessel disease in the distal LAD with patent POTTER to the LAD, patent vein graft to the first and second obtuse marginal branch, occluded vein graft to the right coronary artery with diffuse ectasia in the mid and distal right coronary artery, mild to moderate disease. Nonobstructive disease,. Stress test done on October 26, 2020 showing diaphragmatic attenuation with reversible ischemia involving the whole inferior wall and inferolateral wall and lateral wall probably due to the occluded and graft to the right coronary artery. Planning for cardiac catheterization Aortic valve replacement done during CABG using 25 mm Magna tissue valve, Last echocardiogram was done in September 2020 showing normal left ventricular size, EF 45-50 percent, left atrium is moderately dilated 5.99 cm, moderate mitral regurgitation, prostatic valve in aortic position with a peak gradient 11 mmHg, mean gradient 7 mmHg, valve area 1.51 cm no change compared to the previous study. PA pressure is significantly elevated of 65-70 mmHg. Patient is having generalized weakness, loss of energy, we will repeat 2D echo Acute on chronic renal failure, worsening renal function Receiving IV fluid Discussed in length the risk of progressing into end-stage kidney disease after cardiac catheterization and use of contrast. Patient understand the risk and agreed with the procedure Hypertension, monitor blood pressure History of peripheral edema, reporting improvement. Continue to monitor. Mild bilateral carotid stenosis, nonobstructive disease, continue to monitor Hyperlipidemia, monitor lipids Pulmonary hypertension noted on 2-D echocardiogram. PA pressure 65-70 mmHg. Asymptomatic at this time. Continue to monitor JOSÉ LUIS FARR MD Jan 07, 2023 08:38
[2023-01-07] MEDS ORDERED: NS IV 1000 ML 1,000 ML ONE (08:40)
[2023-01-07] MEDS ORDERED: LIDOCAINE 1% INJ 20 ML VIAL ONE (08:40)
[2023-01-07] MEDS ORDERED: HEParin (CATH LAB) 2,000 ML IV ONE (08:40)
--- NOTE | 2023-01-07 08:40 | Cardiac Procedure Note-CS/ASA ---
Pre-Procedure Note Pre-Op Procedure Note Date of Available H&P: Jan 07, 2023 Date H&P Reviewed: Jan 07, 2023 Time H&P Reviewed: 08:40 History & Physical: H&P Reviewed, Patient Examed, No changes noted Pre-Operative Diagnosis: NSTMI Moderate Sedation PreProcedure Time 08:40 ASA Score 3 Airway Lungs Heart ASA score ASA 1: a normal healthy patient ASA 2: a patient with a mild systemic disease (mid diabetes, controlled hypertension, obesity ASA 3: a patient with a severe systemic disease that limits activity (angina, COPD, prior Myocardial infarction) ASA 4: a patient with an incapacitating disease that is a constant threat to life (CHF, renal failure) ASA 5: a moribund patient not expected to survive 24 hrs. (ruptured aneurysm) ASA 6: a declared brain- patient whose organs are being harvested. For emergent operations, add the letter E after the classification Mallampati Classification Grade 3 Sedation Plan Analgesia, Amnesia, Plan communicated to team members, Discussed options with patient/fam, Discussed risks with patient/fam The patient is an appropriate candidate to undergo the planned procedure, sedation, and anesthesia. The patient immediately re-assessed prior to indication. JOSÉ LUIS FARR MD Jan 07, 2023 08:40
[2023-01-07] MEDS ORDERED: MIDAZOLAM 5 MG/5 ML (VERSED) VIAL ONE (08:44)
[2023-01-07] MEDS ORDERED: fentaNYL INJ 100 MCG/2 ML AMP ONE (08:44)
[2023-01-07] MEDS: ASPIRIN E.C. 81 MG (ECOTRIN) TAB PO SCH (09:43)
[2023-01-07] MEDS ORDERED: PATIENT MAY USE OWN MEDS, ALL PO SCH (10:00)
--- NOTE | 2023-01-07 10:07 | Cardiac Cath Report ---
Cardiac Cath Report Physician (s)/Liquor Department Manager (s) Physician JOSÉ LUIS FARR MD Pre-Procedure Diagnosis Pre-Procedure Diagnosis: NSTMI Post-Procedure Note Procedure Start Date: Jan 07, 2023 Name of Procedure: Coronary angiogram Vein graft angiogram Findings/Procedure Note PROCEDURE NOTE: 77-year-old gentleman with history of CABG, aortic valve replacement, had non-ST elevation myocardial infarction Decided to proceed with cardiac catheterization possible PTCA. After explaining the procedure to the patient, all pros and cons were explained, all questions were answered. The patient signed the consent and then he was placed in the cardiac catheterization laboratory. Groin was prepped in SL fashion local anesthesia was used. Sheath placed in the right femoral artery, Wilfredo left catheter advanced to the left system and angiogram was done, Wilfredo right advanced to the right coronary system and angiogram was done then engaged the 2 vein grafts. I tried to engage the subclavian to evaluate the POTTER without success, I did multiple different catheters. At that point I decided to stop due to the fact that I was able to see competitive flow in the LAD indicating good and patent POTTER and I did not want to expose the patient to excessive contrast At the end of the procedure the sheath was removed. Closure device was deployed FINDINGS: Hemodynamics LV did not cross the aortic valve Aorta 98/57 mean of 65 ANATOMY: Left Main has moderate disease Left Anterior Descending is occluded in the midportion, competitive flow in the LAD was noted probably through the POTTER, POTTER was not evaluated on this study Left Circumflex has moderate stenosis in the midportion, diffuse moderate disease, severe stenosis at the first obtuse marginal branch, vein graft to the obtuse marginal branch is patent Right Coronary Artery is dominant artery with aneurysm proximally followed by 80% stenosis, diffuse moderate disease, the vein graft to the right coronary artery is occluded Vein graft angiogram the vein graft to the right coronary artery is occluded Vein graft to the obtuse marginal branch is patent, patient is known to have jump graft to OM1 and OM 2, the OM 2 branch was not visualized, good flow distally. LV Gram did not cross the aortic valve Fluoroscopy, struts of porcine valve in the aortic position was seen CONCLUSION: Diffuse moderate to severe burns paiute coronary artery disease, the vein graft to the obtuse marginal branch is patent, the POTTER to the LAD is probably patent, was not visualized, was unable to engage the subclavian artery but there is a good competitive flow in the LAD. Right coronary artery is a dominant artery with diffuse ectasia and moderate disease. 80% stenosis proximally. Conservative management is recommended Did not cross the prosthetic aortic valve, struts of the valve were noted. Ejection fraction 30% per echocardiogram done on January 07, 2023. DISCUSSION AND RECOMMENDATION: Continue to maximize medical therapy Anesthesia Type: Conscious Sedation Estimated blood loss (mL): 15 ml Contrast Amount: 23 ml Total Radiation Dose: 355 mGy Post-Procedure Diagnosis Post-operative diagnosis: Non-ST elevation myocardial infarction Coronary artery disease Aortic valve replacement Hypertension JOSÉ LUIS FARR MD Jan 07, 2023 10:07
[2023-01-07] MEDS: NS IV 1000 ML 1,000 ML IV SCH ×2 (10:31→15:19)
[2023-01-07] MEDS: MEROPENEM 500 MG in NS (IVPB) 100 ML IV SCH ×2 (11:25→23:56)
[2023-01-07] MEDS ORDERED: ACET-93 PO (11:34)
[2023-01-07] MEDS ORDERED: APIX2.5T PO (11:34)
[2023-01-07] MEDS ORDERED: TMSL.4C PO (11:34)
[2023-01-07] MEDS ORDERED: FURO40TA4 PO (11:34)
[2023-01-07] MEDS ORDERED: FINA5TAB6 PO (11:37)
[2023-01-07] MEDS ORDERED: DOCU-143 PO (11:37)
[2023-01-07] MEDS ORDERED: CARV6.252 PO (11:37)
--- NOTE | 2023-01-07 20:28 | History & Physical-Hospitalist ---
History of Present Illness HPI/Chief Complaint Darin Morris is a 77 year old male with PMH HTN, HLD, CAD s/p CABG, mechanical AVR, CKD 3a, who presented with weakness. He was transferred from [facility]. He has had multiple recent falls. He stopped taking all of his medications about a month ago. He was reportedly having right sided chest pain. He is unable to provide any history. He just returned from the manager cath lab upon my examination. His friend and [id number] are present and provide the history. He lives by himself. He has had recurrent UTIs. He reportedly has an enlarged prostate. He has seen Dr. Mendes in the past. Source: family Exam Limitations: clinical condition Date Seen 01/07/23 Time Seen by a Provider: 10:15 Attending Physician No,Local Physician PCP Admitting Physician: Ada aFm MD Attending Physician: Gely Renteria MD Referring Physician Date of Admission Jan 07, 2023 at 00:06 Home Medications & Allergies Home Medications Reviewed patient Home Medication Reconciliation performed by pharmacy medication reconciliations predictive maintenance technician and/or nursing. Patients Allergies have been reviewed. Allergies Allergies Coded Allergies No Known Drug Allergies (Verified Allergy, Unknown, 11/02/09) Past Ufikkva-Tzxsni-Iobstv Hx Patient Social History Marrital Status: single Employed/Student: retired Tobacco Use?: No Smoking Status: Never a Smoker Use of E-Cig and/or Vaping dev: No Substance use?: No Alcohol Use?: No Pt feels they are or have been: No Current Status Advance Directives: No Communicates: Verbally Primary Language: Yi Preferred Spoken Language: Yi Is interpretation needed?: No Sensory deficits: Vision impairment, Hearing impairment Implanted or Applied Medical D: None Past Medical History Surgeries: CABG, Valve Replacement Coronary Artery Disease, High Cholesterol, Hypertension Benign Prostatic Hyperpl Family Medical History No Pertinent Family Hx Review of Systems Constitutional: weakness Respiratory: no symptoms reported Cardiovascular: chest pain Physical Exam Physical Exam Vital Signs Vital Signs - First Documented 01/07/23 01/07/23 01/07/23 00:12 01:00 03:19 Temp 36.7 Pulse 98 Resp 30 B/P (MAP) 127/71 (89) Pulse Ox 90 O2 Delivery Room Air O2 Flow Rate 4.00 FiO2 36 Capillary Refill : Less Than 3 Seconds Height, Weight, BMI Height: 5'11.00" Weight: 206lbs. oz. 93.147242zp; 22.91 BMI Method: General Appearance: No Apparent Distress, WD/WN HEENT: PERRL/EOMI, Pharynx Normal Neck: Normal Inspection, Supple Respiratory: Lungs Clear, Normal Breath Sounds, No Respiratory Distress Cardiovascular: Regular Rate, Rhythm, No Edema Gastrointestinal: Normal Bowel Sounds, Soft Extremity: Normal Inspection, No Pedal Edema Neurologic/Psychiatric: Alert Skin: Normal Color, Warm/Dry Results Results/Procedures Labs Laboratory Tests 01/07/23 00:22 01/07/23 05:55 Patient resulted labs reviewed. Imaging: Reviewed Imaging Report Assessment/Plan Admission Diagnosis Severe sepsis Admission Status: Inpatient Order (span 2 midnights) Reason for Inpatient Admission: IV antibiotics Assessment and Plan Severe sepsis UTI NSTEMI, type II Lactic acidosis CONSUELO on CKD 3a BPH UA consistent with UTI Urine culture pending Started on Merrem Gentle IV fluids Cardiology consulted s/p left heart cath 01/07 with no significant CAD Egan in place Will likely need Urology referral on discharge HTN HLD CAD s/p CABG Mechanical AVR Continue home meds as able Thrombocytopenia Hematuria Hold Lovenox Critical Care Critically Ill Patient Diagnosis/Problems Diagnosis/Problems (1) Severe sepsis Status: Acute (2) UTI (urinary tract infection) Status: Acute Qualifiers: Urinary tract infection type: acute cystitis Hematuria presence: with hematuria Qualified Codes: N30.01 - Acute cystitis with hematuria (3) BPH (benign prostatic hyperplasia) Status: Chronic (4) Lactic acidosis Status: Acute (5) NSTEMI (non-ST elevation myocardial infarction) Status: Acute (6) Acute kidney injury superimposed on chronic kidney disease Status: Acute (7) Hematuria Status: Acute (8) Thrombocytopenia (9) HTN (hypertension) Status: Chronic (10) HLD (hyperlipidemia) Status: Chronic (11) CAD (coronary artery disease) Status: Chronic (12) Hx of CABG Status: Chronic (13) H/O mechanical aortic valve replacement Status: Chronic GELY RENTERIA MD Jan 07, 2023 20:28
[2023-01-08] MEDS: NS IV 1000 ML 1,000 ML IV SCH (00:41)
[2023-01-08] MEDS: dilTIAZem DRIP PRE-MIX 125 ML IV SCH (01:15)
[2023-01-08 05:02] LABS: BASOPHILS % (AUTO) 0 % (0-10); EOSINOPHILS % (AUTO) 1 % (0-10); HEMATOCRIT 23 % (40-54); LYMPHOCYTES # (AUTO) 0.2 10^3/uL (1.0-4.0); LYMPHOCYTES % (AUTO) 3 % (12-44); MEAN CORPUSCULAR HEMOGLOBIN 31 pg (25-34); MEAN CORPUSCULAR HGB CONC 35 g/dL (32-36); MEAN CORPUSCULAR VOLUME 89 fL (80-99); MEAN PLATELET VOLUME 12.4 fL (9.0-12.2); MONOCYTES # (AUTO) 0.3 10^3/uL (0.0-1.0); MONOCYTES % (AUTO) 4 % (0-12); NEUTROPHILS # (AUTO) 6.8 10^3/uL (1.8-7.8); NEUTROPHILS % (AUTO) 92 % (42-75); PLATELET COUNT 63 10^3/uL (130-400); WHITE BLOOD COUNT 7.4 10^3/uL (4.3-11.0)
[2023-01-08 05:14] LABS: INR 1.8 (0.8-1.4); PROTHROMBIN TIME PATIENT 21.7 SEC (12.2-14.7)
[2023-01-08 05:27] LABS: ALBUMIN 2.2 GM/DL (3.2-4.5); BILIRUBIN,TOTAL 0.9 MG/DL (0.1-1.0); CALCIUM 7.7 MG/DL (8.5-10.1); CREATININE SERUM 3.26 MG/DL (0.60-1.30); POTASSIUM 3.7 MMOL/L (3.6-5.0); TOTAL PROTEIN 4.9 GM/DL (6.4-8.2)
[2023-01-08] MEDS ORDERED: NS IV 500 ML 500 ML IV PRN (06:00)
[2023-01-08] MEDS ORDERED: KCL 20 MEQ TAB (K-DUR) PO SCH (06:00)
[2023-01-08] MEDS ORDERED: POTASSIUM CL 10MEQ/50ML IVPB 50 ML IV SCH (06:00)
[2023-01-08] MEDS ORDERED: MAGNESIUM 1 GM/100 ML IVPB 100 ML IV SCH (06:00)
--- NOTE | 2023-01-08 07:49 | Cardiology Progress Note ---
Subjective Date Seen by Provider: Jan 08, 2023 Time Seen by Provider: 07:46 Subjective/Events-last exam Patient is laying down in bed, confused, no new complain Review of Systems General: Fatigue, Malaise HEENT: No Head Aches, No Visual Changes, No Eye Pain, No Ear Pain, No Dysphasia, No Sinus Congestion, No Post Nasal Drip, No Sore Throat, No Other Pulmonary: No Dyspnea, No Cough, No Pleuritic Chest Pain, No Other Cardiovascular: No: Chest Pain, Palpitations, Orthopnea, Paroxysmal Noc. Dyspnea, Edema, Lt Headedness, Other Focused Exam Lactate Level 01/07/23 00:22: Lactic Acid Level 2.01*H 01/07/23 02:17: Lactic Acid Level 3.46*H 01/07/23 04:40: Lactic Acid Level 1.68 Objective-Cardiology Exam Last Set of Vital Signs Vital Signs 01/07/23 01/07/23 01/08/23 01/08/23 03:19 03:51 04:19 06:00 Temp 36.7 Pulse 75 Resp 30 B/P (MAP) 114/72 (86) Pulse Ox 100 O2 Delivery Nasal Cannula O2 Flow Rate 2.00 FiO2 36 I&O Intake and Output 01/08/23 00:00 Intake Total 1500 ml Output Total 1490 ml Balance 10 ml Intake Oral 300 ml IV Total 1200 ml Output Urine Total 1490 ml Daily Weight Change Unsure General: Alert, Oriented X3, Cooperative HEENT: Atraumatic, PERRLA Neck: Supple, No JVD, No Thyromegaly Lungs: Clear to Auscultation, Normal Air Movement Heart: Normal S1, Normal S2, No Murmurs, Other (Atrial fibrillation) Abdomen: Normal Bowel Sounds, Soft, No Tenderness, No Hepatosplenomegaly, No Masses Extremities: No Clubbing, No Cyanosis, No Edema, Normal Pulses, No Tenderness/Swelling Skin: No Rashes, No Breakdown, No Significant Lesion Neuro: Normal Speech, Normal Tone, Sensation Intact Psych/Mental Status: Other (Confused and agitated) Results Lab Laboratory Tests 01/08/23 04:48 A/P-Cardiology Admission Diagnosis Chest pain Non-ST elevation myocardial infarction Coronary artery disease Aortic valve replacement Hypertension Assessment/Plan Chest pain, resembling angina Non-ST elevation myocardial infarction Cardiac catheterization showed small vessel disease. Medical therapy is rec ommended no intervention is needed. Nonsustained ventricular tachycardia History of ventricular tachycardia in the past. Starting beta-blockers and monitor tolerance and response. Atrial fibrillation, new onset, rate controlled. We will switch to oral Cardizem Will add Eliquis and monitor tolerance and response Coronary artery disease, history of CABG 4 with aortic valve replacement done in October 2009. Cardiac catheterization was done in March 2014 after having an abnormal stress test which showed small vessel disease in the distal LAD with patent POTTER to the LAD, patent vein graft to the first and second obtuse marginal branch, occluded vein graft to the right coronary artery with diffuse ectasia in the mid and distal right coronary artery, mild to moderate disease. Nonobstructive disease,. Stress test done on October 26, 2020 showing diaphragmatic attenuation with reversible ischemia involving the whole inferior wall and inferolateral wall and lateral wall probably due to the occluded and graft to the right coronary artery. Cardiac catheterization done on January 07, 2023 showing patent vein graft to the obtuse marginal branch, signs of a patent POTTER to the LAD. Known occluded vein graft to the right coronary artery and small vessel disease. Diffuse ectasia. Medical therapy is recommended no intervention is needed Aortic valve replacement done during CABG using 25 mm Magna tissue valve, Last echocardiogram was done in September 2020 showing normal left ventricular siz e, EF 45-50 percent, left atrium is moderately dilated 5.99 cm, moderate mitral regurgitation, prostatic valve in aortic position with a peak gradient 11 mmHg, mean gradient 7 mmHg, valve area 1.51 cm no change compared to the previous study. PA pressure is significantly elevated of 65-70 mmHg. Patient is having generalized weakness, loss of energy, we will repeat 2D echo Acute on chronic renal failure, worsening renal function I will give IV fluid and monitor tolerance and response Hypertension, monitor blood pressure History of peripheral edema, reporting improvement. Continue to monitor. Mild bilateral carotid stenosis, nonobstructive disease, continue to monitor Hyperlipidemia, monitor lipids Pulmonary hypertension noted on 2-D echocardiogram. PA pressure 65-70 mmHg. Asymptomatic at this time. Continue to monitor JOSÉ LUIS FARR MD Jan 08, 2023 07:49
[2023-01-08] MEDS ORDERED: NS IV 1000 ML 1,000 ML IV SCH ×2 (08:00→09:30)
[2023-01-08] MEDS: ASPIRIN E.C. 81 MG (ECOTRIN) TAB PO SCH (08:19)
[2023-01-08] MEDS ORDERED: dilTIAZem120 MG (CARDIZEM CD) CAP PO SCH (09:00)
[2023-01-08] MEDS ORDERED: APIXABAN 5 MG (ELIQUIS) TABLET PO SCH (09:00)
[2023-01-08] MEDS ORDERED: SODIUM BICARBONATE 650 MG TABLET PO SCH (09:00)
[2023-01-08] MEDS ORDERED: LIDOCAINE UROJET 2% GEL 10 ML PKG ONE (10:24)
--- NOTE | 2023-01-08 11:28 | Diagnostic Imaging Report ---
Indication: Sepsis and altered mental status TECHNIQUE: Multiple contiguous axial images were obtained through the brain without the use of intravenous contrast. Auto Exposure Controls were utilized during the CT exam to meet ALARA standards for radiation dose reduction. There is no previous study for comparison There are diffuse atrophic changes. There are patchy low-density changes throughout the deep white matter. There is an old infarct in the left frontal lobe superiorly and old bilateral occipital ischemic changes. There is ventricular prominence secondary to volume loss. There are old infarcts in the right cerebellum. There is no acute hemorrhage, subdural or epidural collection. IMPRESSION: Atrophy and multifocal chronic changes as described above with no acute intracranial abnormality. Dictated by: Dictated on workstation # [id number]
--- NOTE | 2023-01-08 11:41 | Diagnostic Imaging Report ---
EXAMINATION: CT abdomen and pelvis without contrast. TECHNIQUE: Multiple contiguous axial images were obtained through the abdomen and pelvis without the use of intravenous contrast. All CT scans use one or more of the following dose optimizing techniques: automated exposure control, MA and/or KvP adjustment based on patient size and exam type or iterative reconstruction. HISTORY: Sepsis, hematuria COMPARISON: None available. FINDINGS: Limited views of the lower thorax show small bilateral pleural effusions and overlying atelectasis. There has been an aortic valve replacement. The heart is enlarged. Coronary arteries are severely calcified. There are old right-sided rib fractures. The liver is normal without focal lesion. There is no biliary ductal dilation. High attenuation of the gallbladder may represent excreted contrast or sludge. Pancreas is normal. Spleen is normal. Adrenal glands are normal. Urinary bladder wall is markedly thickened. There is gas and debris within the bladder. A Egan catheter is present. There is severe bilateral hydroureteronephrosis. High attenuation in the collecting systems may represent excreted contrast. The ureters are dilated to the level of the urinary bladder. There is a cyst in the upper pole of the right kidney. Left kidney is relatively atrophic compared to the right. There is nonspecific perinephric stranding. No obstructing stones are seen. Peripheral gas in the ascending colon may represent pneumatosis versus gas associated with stool (series 2, image 95). No portal venous gas is seen. No bowel dilation. No free air. There is a small amount of free fluid. No drainable fluid collection. No abdominal or pelvic lymphadenopathy. 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 There are no suspicious osseus lesions. There is an age-indeterminate mild L2 compression fracture. IMPRESSION: 1. Severe bilateral hydroureteronephrosis extending to the urinary bladder. Urinary bladder wall is markedly thickened and there is internal soft tissue within the lateral that may represent blood products or a mass. Findings may be related to an underlying bladder mass, chronic outlet obstruction or obstruction from of hematuria. No ureteral stones are seen. 2. Peripheral gas in the ascending colon which may represent pneumatosis or gas adjacent to stool, correlate with selective values. Dictated by: Dictated on workstation # [id number]
[2023-01-08] MEDS: MEROPENEM 500 MG in NS (IVPB) 100 ML IV SCH (11:44)
[2023-01-08] MEDS ORDERED: DOCU250C11 PO (11:55)
[2023-01-08] MEDS ORDERED: CYCL5TAB PO (11:55)
[2023-01-08] MEDS ORDERED: NOREPINEPHRINE 8 MG/250 ML 250 ML IV ONE (12:13)
[2023-01-08] MEDS ORDERED: NOREPINEPHRINE 8 MG/250 ML 250 ML IV SCH (12:15)
--- NOTE | 2023-01-08 12:37 | Tele-ICU Progress Note ---
Subjective Date Seen by a Provider: Jan 08, 2023 Time Seen by a Provider: 12:36 Subjective/Events-last exam (Tele-ICU Physician , Progress Note ) Service provided via interactive audio and video telecommunications E-CARE system to a patient admitted to ICU bed in [facility]. Patient is seen today due to persistent need of ICU care Available chart/ vitals / labs / Images reviewed Video assessment done using teleICU camera, rest of exam as per RN He is a 68-year-old male with past medical history of coronary artery disease status post CABG x4 and aortic valve replacement with a tissue wall back in 2009 apparently was not feeling well for the last month or so for which he has not been taking his cardiac meds. Reportedly has been falling on and off for the last 1 month. He was brought to the emergency room where he is found to have a acute on chronic kidney failure, anemia as well as elevated troponin. Cardiology consultation requested and he was taken to cardiac catheterization and found he had a 80% stenosis of the right coronary artery with a diffuse ectasia and and conservative management recommended. He was started on Lovenox. Echocardiogram revealed ejection fraction 30%. He is on apparently has awake alert oriented x2 only. Today he is having profuse hematuria hence a three-way Egan catheter inserted and started irrigation. I have ordered a CT of the brain which did not show any acute changes but he has several old strokes and cerebral atrophy. At the same time underwent CT of the abdomen and pelvis which showed bilateral hydronephrosis and blood products in the bladder and a question of mass in the bladder suspicious Malignancy. After the CT scan is done his blood pressure went down and I have given him fluid bolus which did not improve significantly hence I ordered to start in Levophed. Earlier I have ordered vitamin B12, folic acid, serum iron studies because his hemoglobin found to be at 8 g which is significantly lower than before. Impression 1. Non-ST segment elevation myocardial infarction 2. 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 Hypotension probably due to hematuria and volume deficiency 4. Possible sepsis 5. Urinary tract infection 6. Possible bladder malignancy with bilateral hydronephrosis. 7. History of aortic valve replacement with a tissue valve. Recommendations 1. Continue hydration 2. Start on a Levophed 3. Continue IV antibiotics 4. Suggest urology consultation and if it is not available I would suggest to transfer the patient to be a tertiary care facility. 5. Hold her Lovenox for the time being. 6. Reviewed with the RETAIL ACCOUNT SPECIALIST. Coordination of care with primary care physician as well as bedside consultants. I am remotely monitoring this patient from Tele icu station in [place]. I am unable to do the bedside exam, and history/physical and pertinent information is taken from other notes in the computer and bedside staff. Certain portions of this document may have been dictated utilizing voice recognition technology such as Directly. Inherent to this technology, typographical and grammatical errors may exist. As much as I am diligent to identify and correct to these mistakes, some errors may remain in the document. Critical care time devoted to this patient today is approximately is-30 minutes Sepsis Event Evaluation Height, Weight, BMI Height: 5'11.00" Weight: 206lbs. oz. 93.636693oz; 22.85 BMI Method: Focused Exam Lactate Level 01/07/23 00:22: Lactic Acid Level 2.01*H 01/07/23 02:17: Lactic Acid Level 3.46*H 01/07/23 04:40: Lactic Acid Level 1.68 Exam Exam Patient acknowledged, consented, and participated in this virtual visit which was conducted using real time audio/video Vital Signs Date Time Temp Pulse Resp B/P (MAP) Pulse Ox O2 Delivery O2 Flow Rate FiO2 01/08/23 12:23 119 01/08/23 12:16 74 80/50 01/08/23 12:00 74 82/52 (62) 90 Nasal Cannula 2.00 01/08/23 11:30 77 85/50 (62) 91 Nasal Cannula 2.00 01/08/23 11:00 76 72/52 (59) 95 Nasal Cannula 2.00 01/08/23 10:00 74 91/64 (73) 92 Nasal Cannula 2.00 01/08/23 09:00 76 102/61 (75) 96 Nasal Cannula 2.00 01/08/23 08:00 80 91/70 (77) 96 Nasal Cannula 2.00 01/08/23 07:18 72 01/08/23 07:00 74 106/63 (77) 100 Nasal Cannula 2.00 01/08/23 06:00 75 114/72 (86) 100 Nasal Cannula 2.00 01/08/23 05:00 80 101/61 (74) 100 Nasal Cannula 2.00 01/08/23 04:19 36.7 01/08/23 04:00 70 118/67 (84) 100 Nasal Cannula 2.00 01/08/23 04:00 98 Nasal Cannula 2.00 01/08/23 03:00 73 116/70 (85) 100 Nasal Cannula 2.00 01/08/23 02:00 71 116/68 (84) 100 Nasal Cannula 2.00 01/08/23 01:15 95 98/63 01/08/23 01:00 75 01/08/23 01:00 73 110/69 (83) 100 Nasal Cannula 2.00 01/08/23 00:00 80 101/64 (76) 100 Nasal Cannula 2.00 01/08/23 00:00 36.8 01/07/23 23:59 98 Nasal Cannula 2.00 01/07/23 23:00 77 109/71 (84) 98 Nasal Cannula 2.00 01/07/23 22:02 99 Nasal Cannula 2.00 01/07/23 22:00 86 111/71 (84) 100 Nasal Cannula 2.00 01/07/23 21:00 96 106/77 (87) 99 Nasal Cannula 2.00 01/07/23 20:00 88 95/64 (74) 100 Nasal Cannula 2.00 01/07/23 20:00 99 Nasal Cannula 2.00 01/07/23 20:00 36.7 01/07/23 19:00 90 108/72 (84) 96 Nasal Cannula 2.00 01/07/23 19:00 95 01/07/23 18:00 73 122/69 (86) 99 Nasal Cannula 2.00 01/07/23 17:00 72 83/72 (76) 99 Nasal Cannula 2.00 01/07/23 16:35 36.9 01/07/23 16:20 98 Nasal Cannula 2.00 01/07/23 16:00 70 116/64 (81) 100 Nasal Cannula 2.00 01/07/23 15:00 65 108/77 (87) 100 Nasal Cannula 2.00 01/07/23 14:00 65 106/67 (80) 100 Nasal Cannula 2.00 01/07/23 13:00 69 113/74 (87) 99 Nasal Cannula 2.00 01/07/23 13:00 69 I & O 01/08/23 07:00 Intake Total 1650 ml Output Total 1375 ml Balance 275 ml Height & Weight Height: 5'11.00" Weight: 206lbs. oz. 93.612257wf; 22.85 BMI Method: General Appearance: No Apparent Distress, WD/WN HEENT: PERRL/EOMI, Pharynx Normal Neck: Normal Inspection, Supple Respiratory: Lungs Clear, Normal Breath Sounds, No Respiratory Distress Cardiovascular: Regular Rate, Rhythm, No Edema Capillary Refill: Less Than 3 Seconds Extremity: Normal Inspection, No Pedal Edema Neurologic/Psychiatric: Alert Skin: Normal Color, Warm/Dry Lymphatic: No Adenopathy Results Lab Laboratory Tests 01/07/23 00:22 01/07/23 05:55 01/08/23 04:48 Assessment/Plan Assessment/Plan as above Critical Care: Critically Ill Patient Time spent with patient (mins): 30 ANDREI SEBASTIAN MD Jan 08, 2023 12:37
[2023-01-08 12:53] LABS: HEMOGLOBIN 8.1 g/dL (13.3-17.7)
[2023-01-08 12:55] LABS: BASOPHILS % (AUTO) 0 % (0-10); EOSINOPHILS # (AUTO) 0.1 10^3/uL (0.0-0.3); EOSINOPHILS % (AUTO) 1 % (0-10); HEMATOCRIT 23 % (40-54); LYMPHOCYTES # (AUTO) 0.2 10^3/uL (1.0-4.0); LYMPHOCYTES % (AUTO) 4 % (12-44); MEAN CORPUSCULAR HEMOGLOBIN 31 pg (25-34); MEAN CORPUSCULAR HGB CONC 35 g/dL (32-36); MEAN CORPUSCULAR VOLUME 89 fL (80-99); MONOCYTES # (AUTO) 0.3 10^3/uL (0.0-1.0); MONOCYTES % (AUTO) 4 % (0-12); NEUTROPHILS # (AUTO) 5.7 10^3/uL (1.8-7.8); NEUTROPHILS % (AUTO) 89 % (42-75); PLATELET COUNT 59 10^3/uL (130-400); WHITE BLOOD COUNT 6.4 10^3/uL (4.3-11.0)
[2023-01-08 13:13] LABS: POTASSIUM 3.7 MMOL/L (3.6-5.0)
[2023-01-08 13:14] LABS: CALCIUM 7.5 MG/DL (8.5-10.1)
[2023-01-08 13:19] LABS: CREATININE SERUM 3.23 MG/DL (0.60-1.30)
--- NOTE | 2023-01-08 13:37 | Progress Note - Hospitalist ---
GIL HUERTA 01/08/23 1337: Subjective HPI/CC On Admission Date Seen by Provider: Jan 08, 2023 Time Seen by Provider: 08:45 Darin Morris is a 77 year old male with PMH HTN, HLD, CAD s/p CABG, mechanical AVR, CKD 3a, who presented with weakness. He was transferred from [facility]. He has had multiple recent falls. He stopped taking all of his medications about a month ago. He was reportedly having right sided chest pain. He is unable to provide any history. [place] upon my examination. His friend and [id number] are present and provide the history. He lives by himself. He has had recurrent UTIs. He reportedly has an enlarged prostate. He has seen Dr. Mendes in the past. Subjective/Events-last exam Pt is stable and pt is without any complaints other than being thirsty at this time. Per nurse pt became confused and combative last night. This morning pt seemed more agitated. Pt denies N/V/D, Fever, and chest pain. Review of Systems General: No Chills Pulmonary: No Dyspnea, No Cough Cardiovascular: No: Chest Pain Gastrointestinal: No: Nausea, Vomiting, Abdominal Pain, Diarrhea Focused Exam Lactate Level 01/07/23 02:17: Lactic Acid Level 3.46*H 01/07/23 04:40: Lactic Acid Level 1.68 01/08/23 12:35: Lactic Acid Level 1.67 Lactic Acid Level Laboratory Tests Test 01/08/23 12:35 Lactic Acid Level 1.67 MMOL/L (0.50-2.00) Objective Exam Vital Signs Vital Signs Date Time Temp Pulse Resp B/P (MAP) Pulse Ox O2 Delivery O2 Flow Rate FiO2 01/08/23 12:46 75 01/08/23 12:30 103/67 (79) 98 Nasal Cannula 2.00 01/08/23 04:19 36.7 01/07/23 03:51 30 01/07/23 03:19 36 Capillary Refill : Less Than 3 Seconds General Appearance: No Apparent Distress, Chronically ill, Obese Respiratory: Chest Non Tender, Lungs Clear, Normal Breath Sounds Cardiovascular: Regular Rate, Rhythm, Normal Peripheral Pulses Gastrointestinal: Normal Bowel Sounds, Non Tender, Soft Extremity: No Calf Tenderness, No Pedal Edema Neurologic/Psychiatric: Alert Skin: Warm/Dry Results/Procedures Lab Laboratory Tests 01/08/23 04:48 01/08/23 12:35 Patient resulted labs reviewed. Imaging: Reviewed Imaging Report Assessment/Plan Assessment and Plan Assess & Plan/Chief Complaint Severe Sepsis Secondary to UTI Urine Culture: Gram Negative Michael Continue Meropenem CONSUELO on CKD Worsening BUN and Cr Continue Gentle IVF Gross Hematuria CT Abdomen/Pelvis Eliquis Held AFib w/ RVR Rate Controlled Switch to Oral Cardizem HTN Continue to Monitor GELY RENTERIA MD 01/08/23 1656: Subjective HPI/CC On Admission Time Seen by Provider: 10:00 Assessment/Plan Assessment and Plan Assess & Plan/Chief Complaint Continue Merrem for UTI. Worsening renal function with gross hematuria. Gean exchanged and started on CBI. CT with bilateral hydroureteronephrosis and bladder wall thickening, possible mass. Hypotensive and started on Levophed this morning. Discussed transfer with [facility] for Urology and cystoscopy evaluation, accepted to ICU. Critical Care: Critically Ill Patient Diagnosis/Problems Diagnosis/Problems (1) Severe sepsis Status: Acute (2) UTI (urinary tract infection) Status: Acute Qualifiers: Qualified Codes: N30.01 - Acute cystitis with hematuria (3) Hematuria Status: Acute (4) Thrombocytopenia (5) Acute kidney injury superimposed on chronic kidney disease Status: Acute (6) BPH (benign prostatic hyperplasia) Status: Chronic (7) Hydroureteronephrosis Status: Acute (8) Bladder wall thickening Status: Acute Supervisory-Addendum Brief Verification & Attestation Participated in pt care: history, MDM, physical Personally performed: exam, history, MDM, supervision of care Care discussed with: Medical Student Procedures: n/a Results interpretation: Verified all documentation A medical student performed and documented this service in my presence. I reviewed and verified all information documented by the medical student and made modifications to such information, when appropriate. I personally performed the physical exam and medical decision making. GIL HUERTA Jan 08, 2023 13:37 GELY RENTERIA MD Jan 08, 2023 16:56
--- NOTE | 2023-01-08 14:23 | Consultation ---
History of Present Illness History of Present Illness Patient Consulted On(linda/time) 01/08/23 14:23 Date Seen by Provider: Jan 08, 2023 Time Seen by Provider: 14:23 Reason for Visit: Chest pain History of Present Illness Patient is a 77-patient is a 77-year-old Allergies and Home Medications Allergies Coded Allergies: No Known Drug Allergies (Verified Allergy, Unknown, 11/02/09) Patient Home Medication List Acetaminophen (Acetaminophen) 500 Mg Tablet, 1,000 MG PO BID, (Reported) Entered as Reported by: ORLANDO WINTER on 01/07/231133 Last Action: Reviewed Apixaban (Eliquis) 2.5 Mg Tablet, 2.5 MG PO BID, (Reported) Entered as Reported by: ORLANDO WINTER on 01/07/231133 Last Action: Reviewed Atorvastatin Calcium (Atorvastatin Calcium) 10 Mg Tablet, 10 MG PO HS, (Reported) Entered as Reported by: JAYLAN BARRIOS on 01/02/22 152 Last Action: Reviewed Carvedilol (Carvedilol) 6.25 Mg Tablet, 6.25 MG PO BID, (Reported) Entered as Reported by: ORLANDO WINTER on 01/07/231136 Last Action: Reviewed Cyclobenzaprine HCl (Cyclobenzaprine HCl) 5 Mg Tablet, 5 MG PO HS, (Reported) Entered as Reported by: NICOLAS COLIN on 01/08/231154 Last Action: Reviewed Docusate Sodium (Docusate Sodium) 250 Mg Capsule, 250 MG PO HS, (Reported) Entered as Reported by: NICOLAS COLIN on 01/08/231154 Last Action: Reviewed Finasteride (Finasteride) 5 Mg Tablet, 5 MG PO DAILY, (Reported) Entered as Reported by: ORLANDO WINTER on 01/07/231136 Last Action: Reviewed Furosemide (Furosemide) 40 Mg Tablet, 40 MG PO DAILY, (Reported) Entered as Reported by: ORLANDO WINTER on 01/07/231133 Last Action: Reviewed Ramipril (Ramipril) 10 Mg Capsule, 10 MG PO DAILY, (Reported) Entered as Reported by: JAYLAN BARRIOS on 01/02/221528 Last Action: Reviewed Tamsulosin HCl (Flomax) 0.4 Mg Cap, 0.4 MG PO DAILY, (Reported) Entered as Reported by: ORLANDO WINTER on 01/07/231133 Last Action: Reviewed Discontinued Medications Carvedilol (Carvedilol) 12.5 Mg Tablet, 12.5 MG PO BID, (Reported) Discontinued Reason: Duplicate Order Entered as Reported by: JAYLAN BARRIOS on 01/02/221528 Last Action: Discontinued Clopidogrel Bisulfate (Plavix) 75 Mg Tablet, 75 MG PO DAILY, (Reported) Discontinued Reason: No Longer Taking Entered as Reported by: JAYLAN BARRIOS on 01/02/221528 Last Action: Discontinued Docusate Sodium (Colace) 100 Mg Capsule, 100 MG PO HS, (Reported) Discontinued Reason: Prescription changed Entered as Reported by: ORLANDO WINTER on 01/07/231136 Last Action: New Order Tamsulosin HCl (Flomax) 0.4 Mg Cap, 0.4 MG PO DAILY, (Reported) Discontinued Reason: Duplicate Order Entered as Reported by: ORLANDO WINTER on 01/07/231133 Last Action: Discontinued Vitamin B Complex (Vitamin B Complex) 1 Each Capsule, 1 EACH PO, (Reported) Discontinued Reason: No Longer Taking Entered as Reported by: JAYLAN BARRIOS on 01/02/221526 Last Action: Discontinued Past [id number] Hx Patient Social History Tobacco Use?: No Smoking Status: Never a Smoker Use of E-Cig and/or Vaping dev: No Substance use?: No Alcohol Use?: No Pt feels they are or have been: No Immunizations Up To Date Influenza Vaccine Up-to-Date: Yes; Up-to-Date COVID19 Vaccine Quarter Lining Smoother: Unknown Past Medical History CABG, Valve Replacement Coronary Artery Disease, High Cholesterol, Hypertension Reproductive Disorders: No Benign Prostatic Hyperpl Family Medical History No Pertinent Family Hx Physical Exam-General Problems Physical Exam Vital Signs Vital Signs - First Documented 01/07/23 01/07/23 01/07/23 00:12 01:00 03:19 Temp 36.7 Pulse 98 Resp 30 B/P (MAP) 127/71 (89) Pulse Ox 90 O2 Delivery Room Air O2 Flow Rate 4.00 FiO2 36 Capillary Refill : Less Than 3 Seconds REYNALDO MAIN MD Jan 08, 2023 14:23
[2023-01-08 17:09] VITALS: BP 123/83
--- NOTE | 2023-01-08 17:09 | Discharge Summary ---
Discharge Summary Hospital Course Problems/Dx: (1) Severe sepsis Status: Acute (2) UTI (urinary tract infection) Status: Acute Qualifiers: Qualified Codes: N30.01 - Acute cystitis with hematuria (3) Hematuria Status: Acute (4) Thrombocytopenia (5) Acute kidney injury superimposed on chronic kidney disease Status: Acute (6) BPH (benign prostatic hyperplasia) Status: Chronic (7) Hydroureteronephrosis Status: Acute (8) Bladder wall thickening Status: Acute Hospital Course Date of Admission: Jan 07, 2023 at 00:06 Admission Diagnosis : Severe sepsis due to UTI, CONSUELO on CKD Family Physician/Provider: Tomasa Franco Date of Discharge: 01/08/23 Discharge Diagnosis: Severe sepsis due to UTI, CONSUELO on CKD, gross hematuria, bladder wall thickening, bilateral hydroureteronephrosis Hospital Course: Darin Morris is a 77 year old male with PMH HTN, CAD, mechanical aortic valve replacement, AFib, BPH, CKD 4, who presented to [facility] with confusion and was transferred with severe sepsis due to UTI. He was started on Meropenem. He also had an elevated troponin. Cardiology was consulted and performed left heart cath which showed no obstructive coronary artery disease. He developed gross hematuria. He was started on continuous bladder irrigation. He had a worsening CONSUELO on CKD 4. A CT was performed which showed bilateral hydroureteronephrosis and focal bladder wall thickening. His blood pressures were on the low end of normal throughout his stay. He dropped down to 80/50 and was started on Levophed. He was transferred to [facility] for Urology evaluation. He will be transferred to their ICU. Labs and Pending Lab Test: Laboratory Tests 01/08/23 04:48: White Blood Count 7.4, Red Blood Count 2.59L, Hemoglobin 8.0L, Hematocrit 23L, Mean Corpuscular Volume 89, Mean Corpuscular Hemoglobin 31, Mean Corpuscular Hemoglobin Concent 35, Red Cell Distribution Width 19.6H, Platelet Count 63L, Mean Platelet Volume 12.4H, Immature Granulocyte % (Auto) 1, Neutrophils (%) (Auto) 92H, Lymphocytes (%) (Auto) 3L, Monocytes (%) (Auto) 4, Eosinophils (%) (Auto) 1, Basophils (%) (Auto) 0, Neutrophils # (Auto) 6.8, Lymphocytes # (Auto) 0.2L, Monocytes # (Auto) 0.3, Eosinophils # (Auto) 0.0, Basophils # (Auto) 0.0, Immature Granulocyte # (Auto) 0.0, Percent Immature Platelet Fraction 6.4, Prothrombin Time 21.7H, INR Comment 1.8H, Sodium Level 138, Potassium Level 3.7, Chloride Level 111H, Carbon Dioxide Level 16L, Anion Gap 11, Blood Urea Nitrogen 61H, Creatinine 3.26#H, Estimat Glomerular Filtration Rate 19, BUN/Creatinine Ratio 19, Glucose Level 125H, Calcium Level 7.7L, Corrected Calcium 9.1, Iron Level , Total Iron Binding Capacity [Pending], Unsaturated Iron Binding Capacity [Pending], Transferrin % Saturation [Pending], Ferritin [Pending], Total Bilirubin 0.9, Aspartate Amino Transf (AST/SGOT) 10, Alanine Aminotransferase (ALT/SGPT) 13, Alkaline Phosphatase 68, Total Protein 4.9L, Albumin 2.2L, Vitamin B12 Level [Pending], Folate [Pending], Thyroid Stimulating Hormone (TSH) 0.57 01/08/23 12:35: White Blood Count 6.4, Red Blood Count 2.59L, Hemoglobin 8.1L, Hematocrit 23L, Mean Corpuscular Volume 89, Mean Corpuscular Hemoglobin 31, Mean Corpuscular Hemoglobin Concent 35, Red Cell Distribution Width 19.7H, Platelet Count 59L, Mean Platelet Volume , Immature Granulocyte % (Auto) 1, Neutrophils (%) (Auto) 89H, Lymphocytes (%) (Auto) 4L, Monocytes (%) (Auto) 4, Eosinophils (%) (Auto) 1, Basophils (%) (Auto) 0, Neutrophils # (Auto) 5.7, Lymphocytes # (Auto) 0.2L, Monocytes # (Auto) 0.3, Eosinophils # (Auto) 0.1, Basophils # (Auto) 0.0, Immature Granulocyte # (Auto) 0.1, Percent Immature Platelet Fraction 6.9, Sodium Level 136, Potassium Level 3.7, Chloride Level 110H, Carbon Dioxide Level 16L, Anion Gap 10, Blood Urea Nitrogen 63H, Creatinine 3.23H, Estimat Glomerular Filtration Rate 19, BUN/Creatinine Ratio 20, Glucose Level 179H, Calcium Level 7.5L, Lactic Acid Level 1.67 Microbiology 01/07/23 Urine Culture - Preliminary, Resulted Escherichia coli 01/07/23 MRSA Screen - Final, Complete MRSA not isolated Home Meds Active Reported Cyclobenzaprine HCl 5 Mg Tablet 5 Mg PO HS Docusate Sodium 250 Mg Capsule 250 Mg PO HS Carvedilol 6.25 Mg Tablet 6.25 Mg PO BID Finasteride 5 Mg Tablet 5 Mg PO DAILY Acetaminophen 500 Mg Tablet 1,000 Mg PO BID Flomax (Tamsulosin HCl) 0.4 Mg Cap 0.4 Mg PO DAILY Furosemide 40 Mg Tablet 40 Mg PO DAILY Eliquis (Apixaban) 2.5 Mg Tablet 2.5 Mg PO BID Ramipril 10 Mg Capsule 10 Mg PO DAILY Atorvastatin Calcium 10 Mg Tablet 10 Mg PO HS Assessment/Pt Instructions Transferred to [facility] for Urology Discharge Planning: >30 minutes discharge planning Discharge Instructions Discharge Diet: No Restrictions Activity as Tolerated: Yes Consultations TeleICU, Cardiology, Nephrology Discharge Physical Examination Vital Signs Vital Signs Date Time Temp Pulse Resp B/P (MAP) Pulse Ox O2 Delivery O2 Flow Rate FiO2 01/08/23 16:00 91 123/83 (96) 97 Nasal Cannula 2.00 01/08/23 04:19 36.7 01/07/23 03:51 30 01/07/23 03:19 36 General Appearance: No Apparent Distress, WD/WN Respiratory: Lungs Clear, No Respiratory Distress Cardiovascular: No Murmur, Irregularly Irregular Gastrointestinal: Normal Bowel Sounds, Soft Extremity: Normal Inspection, Pedal Edema Skin: Normal Color, Warm/Dry Neurologic/Psychiatric: Alert, Normal Mood/Affect, Disoriented Allergies: Coded Allergies: No Known Drug Allergies (Verified Allergy, Unknown, 11/02/09) Discharge Summary Date of Admission Jan 07, 2023 at 00:06 Date of Discharge Discharge Date: Jan 08, 2023 Discharge Time: 17:08 Admission Diagnosis Severe sepsis Consults/Procedures Consulations TeleICU, Cardiology, Nephrology Discharge Diagnosis Severe sepsis due to UTI, CONSUELO on CKD (1) Severe sepsis Status: Acute (2) UTI (urinary tract infection) Status: Acute Qualifiers: Qualified Codes: N30.01 - Acute cystitis with hematuria (3) Hematuria Status: Acute (4) Thrombocytopenia (5) Acute kidney injury superimposed on chronic kidney disease Status: Acute (6) BPH (benign prostatic hyperplasia) Status: Chronic (7) Hydroureteronephrosis Status: Acute (8) Bladder wall thickening Status: Acute GELY RENTERIA MD Jan 08, 2023 17:02
--- NOTE | 2023-01-08 18:16 | Physician Query Clarification ---
Physician Query-General Query to Physician: The medical record reflects the following clinical evidence: Clinical Indicators: Respiratory rate 30 on admission has been consistently 30 and above, has been on oxygen since admission initially 4 L then 2, SOA at rest on admission and continued for greater than 24 hours, 02 sat 90% on 4L just after arrival (P/F=167) Risk Factor(s): Severe Sepsis, NSTEMI, CONSUELO, No hx of home 02 Treatment: supplemental 02 up to 4L, Continuous O2 for 36 hours, ICU monitoring Acute respiratory failure with hypoxia, present on admission resolved Other explanation of clinical findings Unable to determine (no explanation for clinical findings) Please clarify and document your clinical opinion in the progress notes and discharge summary including the definitive and/or presumptive diagnosis, (suspected or probable), related to the above clinical findings. Please include clinical findings supporting your diagnosis. Marlen Juan MSN, RN Clinical Mixing Machine Tender Cork Rod [email or web address] PHYSICIAN RESPONSE: Based on the clinical findings in the record, please respond to the query above on this document as an addendum. Physician Response: Physician Response Not acute hypoxic respiratory failure If you have questions please contact: Equestrian Trainer: Ext: Thank you for your time and cooperation. Clinical Mixing Machine Tender Cork Rod/Equestrian Trainer This is a permanent part of the medical record MARLEN JUAN Jan 08, 2023 18:16 GELY RENTERIA MD Jan 08, 2023 19:14
[2023-01-08] MEDS ORDERED: APIXABAN 2.5 MG (ELIQUIS) TABLET PO SCH (21:00)
== END 2023-01-08 17:00 | disposition short-term general hospital (02) | DRG 871 ==
LOC: ICU 01-07 00:06
PROVIDERS: ADMIT Family Medicine; ATTEND Internal Medicine
PROC: B2111ZZ Fluoroscopy of Multiple Coronary Arteries using Low Osmolar Contrast (ICD-10-PCS; principal; 2023-01-07)
PROC: B2131ZZ Fluoroscopy of Multiple Coronary Artery Bypass Grafts using Low Osmolar Contrast (ICD-10-PCS; 2023-01-07)
DX: A41.51 Sepsis due to Escherichia coli [E. coli] (principal); I21.4 Non-ST elevation (NSTEMI) myocardial infarction; N30.01 Acute cystitis with hematuria; N17.9 Acute kidney failure, unspecified; N18.4 Chronic kidney disease, stage 4 (severe); N13.30 Unspecified hydronephrosis; I25.810 Atherosclerosis of coronary artery bypass graft(s) without angina pectoris; I47.20 Ventricular tachycardia, unspecified; I12.9 Hypertensive chronic kidney disease with stage 1 through stage 4 chronic kidney disease, or unspecified chronic kidney disease; R65.20 Severe sepsis without septic shock; D69.6 Thrombocytopenia, unspecified; N40.0 Benign prostatic hyperplasia without lower urinary tract symptoms; I48.91 Unspecified atrial fibrillation; I95.9 Hypotension, unspecified; N32.89 Other specified disorders of bladder; I65.23 Occlusion and stenosis of bilateral carotid arteries; E78.5 Hyperlipidemia, unspecified; I27.20 Pulmonary hypertension, unspecified; Z91.81 History of falling; Z95.2 Presence of prosthetic heart valve; Z95.1 Presence of aortocoronary bypass graft
CPT/HCPCS: 36415; 70450; 74176; 80048; 80053; 81000; 82550; 82607; 82728; 82746; 83540; 83550; 83605; 84443; 84484; 85007; 85025; 85027; 85610; 86850; 86900; 86901; 87077; 87081; 87088; 87184; 87186; 93005; 93306; 93458